=== PATIENT | male | born 1950 | race Caucasian/White ===

== ENCOUNTER 2020-04-21 13:37 | Outpatient (REF) | payer MEDICARE, SELFPAY ==
[2020-04-21 16:43] LABS: MANUAL DIFF FLAG NO
[2020-04-21 16:48] LABS: Basophils Percent Auto 0.4 % (0-2); Eosinophils Absolute Auto 0.1 X10*3/uL (0.0-0.4); Eosinophils Percent Auto 1.4 % (0-4); Hematocrit 47.7 % (42-52); Hemoglobin 15.3 g/dl (14.0-18.0); Imm Gran Abs Auto 0.02 X10*3/uL (0.00-0.03); Imm Gran Pct Auto 0.3 % (0.0-0.4); Lymphocytes Absolute Auto 1.6 X10*3/uL (1.2-4.9); Lymphocytes Percent Auto 19.8 % (20-40); Mean Corpuscular HGB Conc 32.1 g/dl (31.0-36.0); Mean Corpuscular Hemoglobin 30.6 pg (27.0-33.0); Mean Corpuscular Volume 95.4 fL (80-98); Mean Platelet Volume 10.5 fL (9.4-12.4); Monocytes Absolute Auto 0.5 X10*3/uL (0.1-1.2); Monocytes Percent Auto 6.8 % (2-11); Neutrophils Absolute Auto 5.6 X10*3/uL (2.0-8.3); Neutrophils Percent Auto 71.3 % (45-73); Platelet Count 181 X10*3/uL (160-400); White Blood Count 7.8 X10*3/uL (4.8-10.8)
[2020-04-21 17:04] LABS: Alanine Aminotransferase 26 U/L (0-40); Albumin Level 4.5 g/dL (3.5-5.0); Alkaline Phosphatase 85 U/L (39-117); Anion Gap 16 (12-20); Aspartate Amino Transferase 23 U/L (5-37); Bilirubin Total 0.6 mg/dL (0.0-1.0); Blood Urea Nitrogen 24 mg/dL (9-16); Calcium 9.4 mg/dL (8.4-10.2); Carbon Dioxide 31 mmol/L (22-29); Chloride 98 mmol/L (96-108); Estimated Glomerular Filt Rate > 60; Glucose Random 107 mg/dL (60-115); Potassium 4.8 mmol/l (3.3-5.1); Sodium 140 mmol/L (135-145); Total Protein 8.1 g/dL (6.5-8.0)
[2020-04-21 17:07] LABS: Troponin-I High Sensitivity 10.2 ng/L (<3.5-35.0)
== END 2020-04-21 13:38 | disposition home or self-care (01) ==
LOC: HO.LAB 13:37
PROVIDERS: PCP Nurse Practitioner Family; Visit Provider Nurse Practitioner Family
DX: R42 Dizziness and giddiness (principal); I10 Essential (primary) hypertension
CPT/HCPCS: 36415; 80053; 84484; 85025; U0003

== ENCOUNTER → 2020-07-06 08:18 | Outpatient (REF) | payer MEDICARE, SELFPAY ==
--- NOTE | 2020-07-06 08:20 | CA_ITS ---
Transthoracic Echocardiogram Patient (Last, First, Middle): Thomas Griffith E Gender: Male Date of : 1950 Age: 70 Procedure Date: 07/06/2020 Procedure Type: Transthoracic Echocardiogram Location: OP Height: 187.96 cm Weight: 149.23 kg BSA: 2.69 m2 Heart Rate: bpm BP: 140 / 76 mmHg Loom Blower: KIRIT Referring MD: Jaquan Tristan [facility] Stubber: Dudley Jamison MD Symptoms: R01.1 - Cardiac murmur, unspecified Study Quality: Fair ECG Rhythm: Sinus Conclusions: - 1. Normal LV systolic function with mild LVH with pseudonormal filling pattern 2. Mildly dilated left atrium 3. Mild aortic stenosis 4. Mildly dilated ascending aorta 5. Normal RV systolic pressure 6. No pericardial effusion Findings Left Ventricle Normal left ventricular size and systolic function. There is mildly increased left ventricular wall thickness. The visually estimated ejection fraction is between 55-60%. Spectral Doppler is indicative of a pseudonormal filling pattern. E/E prime ratio is >15, consistent with elevated filling pressures. Evidence suggests grade II (moderate) diastolic dysfunction. Right Ventricle Normal right ventricular cavity size and systolic function. Atria The left atrium is mildly dilated. There is lipomatous hypertrophy of the interatrial septum. There is no evidence of interatrial shunt. The right atrium is normal in size. Aortic Valve There is mild calcification of the aortic valve. There is mild aortic valve stenosis. The peak aortic gradient is 14 mmHg.The mean gradient is 8 mmHg. The aortic valve area is 1.75 cm2. There is no aortic valve regurgitation. Mitral Valve Normal mitral valve structure and function. There is trace mitral valve regurgitation. There is no mitral valve stenosis. Pulmonic Valve The pulmonic valve was not well visualized. Tricuspid Valve Likely normal tricuspid valve structure and function. There is trace tricuspid valve regurgitation. The right ventricular systolic pressure is normal. The right ventricular systolic pressure is 20 mmHg. There is no evidence of pulmonary hypertension. Great Vessels The pulmonary artery was not well visualized. There is mild dilatation of the ascending aorta measuring 4.10 cm. Venous The inferior vena cava is normal in size and collapses greater than 50% with inspiration. Pericardium/Pleural There is no evidence of pericardial effusion. Prior Study Comparison No prior study available for comparison. Measurements M-Mode Liner Measurements Normals - Women/Men AOV Cusps: 1.90 1.5-2.6 cm/m2 2D Linear Measurements IVSd: 1.30 0.6-0.9/0.6-1.0 cm LVIDd: 4.95 3.9-5.3/4.2-5.9 cm LVIDd Index: 1.84 2.4-3.2/2.2-3.1 cm/m2 LVIDs: 3.51 2.0-3.6 cm LVPWd: 1.30 0.7-1.1 cm Ao Root: 3.80 2.1-3.5 cm LA Diam: 3.80 2.7-3.8/3.0-4.0 cm LAIDs Index: 1.41 1.5-2.3 cm/m2 LV Mass: 321.44 67-162/88-224 g LV Mass Index: 119.50 43-95/49-115 g/m2 LVOT Diam: 2.00 3.0+(-)1.3 cm 2D Systolic Function EF 4C: 67.80 >55% EF 2C: 49.40 >55% EF BiP: 58.30 >55% Mitral Valve MV Pk E: 1.19 MV PK A: 0.77 MV Decel Time: 232.00 E/A: 1.60 E'Lateral: 6.96 E'Medial: 5.00 E/E' Med: 23.80 E/E' Lat: 17.10 PHT: 68.00 MVA PHT: 3.24 Decel Mccone: 5.13 Aortic Valve AoV Pk Edinson: 1.85 AoV Mn Edinson: 1.36 AoV VTI: 0.46 AoV Pk Grad: 14.00 Aov Mn Grad: 8.00 ROSE Cont.VTI: 1.75 AI Pk Edinson: 4.52 AI Mccone: 2.50 LVOT LVOT Pk Edinson: 0.92 LVOT Mn Edinson: 0.72 LVOT VTI: 0.26 LVOT Pk Grad: 3.00 LVOT Mn Grad: 2.00 LVOT Diam: 2.00 LVOT Area: 3.14 Diastolic Function MV Pk E: 1.19 MV Pk A: 0.77 E/A: 1.60 E'Medial: 5.00 E/E' Med: 23.80 E' Laterial: 6.96 E/E' Lat: 17.10 Tricuspid Valve TR Pk Edinson: 2.07 TR Pk Grad: 17.00 RA Press: 3.00 RVSP: 20.00 Great Vessels Aorta Ao Root-2D: 3.80 2.0-3.7 cm Ao Asc: 4.10 2.1-3.4 cm Ao Arch: 2.80 Pulmonary Valve PV Pk Edinson: 1.05 Peak PV Grad: 4.00 Updated in Other Vendor System with Status of Final Dudley Jamison MD electronically signed on 07/06/2020 12:30:54 PM with status of Final
== END ==
LOC: HO.CARD 08:18
PROVIDERS: PCP Nurse Practitioner Family; Visit Provider Nurse Practitioner Family
DX: R01.1 Cardiac murmur, unspecified (principal)
CPT/HCPCS: 93306

== ENCOUNTER 2020-07-08 07:49 | Outpatient (REF) | payer MEDICARE, SELFPAY ==
[2020-07-08 12:02] LABS: Alanine Aminotransferase 24 U/L (0-40); Albumin Level 4.4 g/dL (3.5-5.0); Alkaline Phosphatase 80 U/L (39-117); Anion Gap 14 (12-20); Aspartate Amino Transferase 23 U/L (5-37); Bilirubin Total 0.7 mg/dL (0.0-1.0); Blood Urea Nitrogen 19 mg/dL (9-16); Calcium 9.1 mg/dL (8.4-10.2); Carbon Dioxide 33 mmol/L (22-29); Chloride 101 mmol/L (96-108); Cholesterol 175 mg/dL; Estimated Glomerular Filt Rate > 60; Glucose Fasting 107 mg/dL (60-99); HDL Cholesterol 45 mg/dL; LDL Cholesterol Calculated 109 mg/dl; Potassium 4.6 mmol/L (3.3-5.1); Sodium 143 mmol/L (135-145); Total Protein 7.9 g/dL (6.5-8.0); Triglycerides 109 mg/dL
[2020-07-08 12:22] LABS: Prostate Specific Antigen Scr 0.78 ng/mL (<0.05-4.0); TSH reflex Free T4 2.45 uIU/mL (0.32-4.0)
== END 2020-07-08 07:50 | disposition home or self-care (01) ==
LOC: HO.HMGCLDS 07:49
PROVIDERS: PCP Nurse Practitioner Family; Visit Provider Nurse Practitioner Family
DX: Z12.5 Encounter for screening for malignant neoplasm of prostate (principal); I10 Essential (primary) hypertension
CPT/HCPCS: 36415; 80053; 80061; 84153; 84443

== ENCOUNTER 2020-07-20 08:42 | Outpatient (REF) | payer MEDICARE, SELFPAY ==
--- NOTE | ~2020-07-20 | CT_ITS ---
EXAMINATION: CT CHEST AND ABDOMEN WITH CONTRAST CLINICAL INFORMATION: Aneurysm. COMPARISON: None. TECHNIQUE: Contiguous axial thin section helical images of the chest and abdomen were performed following the administration of oral contrast and 85 mL of intravenous Omnipaque 350. The data set was reformatted in the coronal and sagittal planes and reviewed on an independent workstation. This CT examination was performed using dose optimization techniques as appropriate, variously including the following: *Automated exposure control *Adjustment of mA and/or kV according to patient size (this includes techniques or standardized protocols for targeted exams where dose is matched to indication/reason for exam; i.e. extremities or head) *Use of iterative reconstruction technique DLP: 840 mGy-cm. FINDINGS: LUNGS: There are multiple scattered bilateral calcified granulomas. No noncalcified pulmonary nodule or mass. Focal somewhat ground-glass airspace opacity adjacent to the right hilum measuring up to 2.1 cm in AP dimension. Findings may represent atelectasis versus early infiltrates. Linear atelectasis versus scarring in the lingula and left lower lobe. The central airways are patent. PLEURA: No pleural effusion or pneumothorax. No pleural mass or thickening. MEDIASTINUM: No cardiomegaly. No significant pericardial effusion. No thoracic aortic dilatation or dissection. No significant superior mediastinal lymphadenopathy. Mildly prominent right hilar lymph node measuring up to 1.1 x 1.1 cm, adjacent to the right perihilar ground-glass opacity. No additional hilar lymphadenopathy. CHEST WALL/AXILLA: No lymphadenopathy. THYROID: Unremarkable LIVER, GALLBLADDER, AND BILIARY TREE: Normal size, shape, and attenuation. No focal hepatic lesion. No intra or extrahepatic biliary ductal dilatation. The gallbladder is unremarkable with no evidence of radiopaque gallstones, gallbladder wall thickening, or obvious pericholecystic inflammatory changes. PANCREAS: Unremarkable. SPLEEN: Mild splenomegaly measuring up to 15.8 cm. ADRENAL GLANDS: Unremarkable. KIDNEYS AND URETERS: Normal size, shape, and attenuation. No hydronephrosis, proximal hydroureter, or calculi. No perinephric stranding. GASTROINTESTINAL TRACT: No upper abdominal bowel wall thickening or associated inflammatory change. No upper abdominal bowel obstruction. The appendix is unremarkable. PERITONEAL CAVITY: No upper abdominal free air or free fluid. No upper abdominal mass or organized fluid collection/abscess formation. ABDOMINAL WALL: Anterior abdominal wall postsurgical change including a surgical mesh consistent with prior hernia repair. No significant abdominal wall hernia. LYMPH NODES: No significant abdominal lymphadenopathy. VASCULAR: Contrast opacifies the abdominal aorta and its branch vessels. No abdominal aortic dilatation or dissection. Scattered atherosclerotic calcifications. The IVC is unremarkable. OSSEOUS STRUCTURES: No concerning lytic or blastic osseous lesion. Diffuse bridging osteophytes throughout the thoracic spine with prominent endplate osteophytes throughout the lumbar spine. Findings can be seen in the setting of diffuse idiopathic skeletal hyperostosis. CT/CT abdomen w con IMPRESSION: 1. No thoracic or abdominal aortic dilatation or dissection. Atherosclerotic calcifications throughout the aorta and its branch vessels. 2. Multiple tiny calcific granulomas, which could represent prior granulomatous disease. Focal ground-glass airspace opacity adjacent to the right hilum measuring up to 2.1 cm in AP dimension. There is an adjacent, mildly prominent right hilar lymph node. Findings may represent an early infectious or inflammatory process. An underlying neoplastic process cannot be entirely excluded and short-term interval follow-up in 1-3 months is recommended to help further evaluate. No additional airspace opacity. No concerning noncalcified pulmonary nodule or mass. 3. No additional lymphadenopathy. 4. Mild splenomegaly. 5. No intra-abdominal mass, lymphadenopathy, or ascites.
[2020-07-20] MEDS: iohexoL 350 MG/ML 100 ML INFUS..BTL IV (09:40)
== END 2020-07-20 08:43 | disposition home or self-care (01) ==
LOC: HO.CT 08:42
PROVIDERS: PCP Nurse Practitioner Family; Visit Provider Nurse Practitioner Family
DX: I72.9 Aneurysm of unspecified site (principal)
CPT/HCPCS: 71260; 74160; Q9967

== ENCOUNTER 2020-10-08 07:31 | Outpatient (REF) | payer MEDICARE, SELFPAY ==
--- NOTE | ~2020-10-08 | CT_ITS ---
EXAMINATION: CT CHEST WITH CONTRAST CLINICAL INFORMATION: Enlarged lymph nodes COMPARISON: Previous chest CT July 2020 TECHNIQUE: Multidetector volumetric CT imaging of the chest was obtained after the administration of 65 mL of Omnipaque 350 intravenous contrast without immediate adverse reactions. Axial MIP volume rendering provided. Sagittal and coronal reformatted images were obtained. This CT examination was performed using dose optimization techniques as appropriate, variously including the following: *Automated exposure control *Adjustment of mA and/or kV according to patient size (this includes techniques or standardized protocols for targeted exams where dose is matched to indication/reason for exam; i.e. extremities or head) *Use of iterative reconstruction technique DLP: 332 mGy-cm FINDINGS: CUTTER WET MACHINE: LUNGS: The previously identified 2 cm area of airspace disease in the central right upper lobe/superior hilar region on July 2020 exam is no longer seen. The previously identified 8 mm left upper lobe nodule on July 2020 exam is no longer seen. There are small bilateral calcified pulmonary nodules that are stable, largest measuring 2 to 3 mm. There is scarring or subsegmental atelectasis in the left upper and left lower lobes. MEDIASTINUM: There are no enlarged hilar or mediastinal lymph nodes. The heart does not appear enlarged. There is coronary artery calcification. There is no pericardial effusion. The thoracic aorta is normal in caliber. PLEURA: There is no pleural effusion. No pleural mass or thickening. AXILLA: No lymphadenopathy. UPPER ABDOMEN: The liver is low in attenuation suggestive of fatty infiltration. OSSEOUS STRUCTURES: There are degenerative changes of the spine and shoulder joints. There is an old right posterior sixth rib fracture. CT/CT chest w con IMPRESSION: 2 cm area of airspace disease in the central/suprahilar right upper lobe is no longer seen. 8 mm central left upper lobe nodule is no longer seen. Stable small calcified pulmonary nodules probably representing calcified granulomas. Minimal scarring or subsegmental atelectasis in the left upper lobe and lingula. No adenopathy. Coronary artery calcification.
[2020-10-08 08:47] LABS: Blood Urea Nitrogen 19 mg/dL (9-16); Estimated Glomerular Filt Rate > 60
[2020-10-08] MEDS: iohexoL 350 MG/ML 100 ML INFUS..BTL 65 ML IV (09:45)
== END 2020-10-08 07:32 | disposition home or self-care (01) ==
LOC: HO.CT 07:31
PROVIDERS: Internal Medicine; Visit Provider Nurse Practitioner Family
DX: R59.0 Localized enlarged lymph nodes (principal)
CPT/HCPCS: 36415; 71260; 82565; 84520; Q9967

== ENCOUNTER 2021-01-31 06:43 | Outpatient (REF) | payer MEDICARE, SELFPAY ==
[2021-01-31 12:10] LABS: Alanine Aminotransferase 21 U/L (0-40); Albumin Level 4.1 g/dL (3.5-5.0); Alkaline Phosphatase 79 U/L (39-117); Anion Gap 11 (12-20); Aspartate Amino Transferase 21 U/L (5-37); Bilirubin Total 0.6 mg/dL (0.0-1.0); Blood Urea Nitrogen 25 mg/dL (9-16); Calcium 9.1 mg/dL (8.4-10.2); Carbon Dioxide 32 mmol/L (22-29); Chloride 102 mmol/L (96-108); Cholesterol 164 mg/dL; Estimated Glomerular Filt Rate > 60; Glucose Fasting 122 mg/dL (60-99); HDL Cholesterol 42 mg/dL; LDL Cholesterol Calculated 103 mg/dl; Potassium 4.9 mmol/L (3.3-5.1); Sodium 140 mmol/L (135-145); Total Protein 7.3 g/dL (6.5-8.0); Triglycerides 98 mg/dL
[2021-01-31 12:16] LABS: Appearance Urine CLEAR; Color Urine YELLOW; Glucose Urine UA NEG (NEG); Leukocyte Esterase Urine NEG (NEG); Nitrite Urine NEG (NEG); Urine Blood NEG (NEG); Urine Ketones NEG (NEG); Urine Protein NEG (NEG-TRACE)
[2021-01-31 12:18] LABS: Prostate Specific Antigen Scr 0.65 ng/mL (<0.05-4.0); TSH reflex Free T4 2.38 uIU/mL (0.32-4.0)
== END 2021-01-31 06:44 | disposition home or self-care (01) ==
LOC: HO.HMGCLDS 06:43
PROVIDERS: PCP Nurse Practitioner Family; Visit Provider Nurse Practitioner Family
DX: Z00.00 Encounter for general adult medical examination without abnormal findings (principal); Z12.5 Encounter for screening for malignant neoplasm of prostate
CPT/HCPCS: 36415; 80053; 80061; 81003; 84153; 84443

== ENCOUNTER → 2021-06-21 08:17 | Outpatient (BNVA) | payer MEDICARE, SELFPAY | PROVIDERS: PCP Nurse Practitioner Family; Referring Provider Nurse Practitioner Family; Visit Provider Internal Medicine | DX: I48.19 Other persistent atrial fibrillation (principal); I10 Essential (primary) hypertension; E66.01 Morbid (severe) obesity due to excess calories; G47.33 Obstructive sleep apnea (adult) (pediatric); Z99.89 Dependence on other enabling machines and devices | CPT/HCPCS: 93005; 99202 ==

== ENCOUNTER → 2021-06-28 06:45 | Outpatient (REF) | payer MEDICARE, SELFPAY ==
--- NOTE | 2021-06-28 06:58 | HM_ITS ---
Conclusion: 1. Patient was monitored for total period of 2 days and 22 hours 2. Baseline rhythm is atrial fibrillation with average heart of 75 beats per minute with adequate rate control 3. No significant pauses noted 4. Total of 1752 PVCs accounting for 0.56% of total burden accounting for occasional PVCs 5. No patient reported events MTDD
== END ==
LOC: HO.CARD 06:45
PROVIDERS: PCP Nurse Practitioner Family; Visit Provider Internal Medicine
DX: I48.19 Other persistent atrial fibrillation (principal)
CPT/HCPCS: 93242

== ENCOUNTER 2021-07-27 22:45 | Emergency (ER) | payer MEDICARE, SELFPAY ==
[2021-07-27 23:02] VITALS: BP 145/75; PULSE 85; RESP 16; TEMP 37.1; O2SAT 95; BMI 41.4
== END 2021-07-28 02:08 | disposition left against medical advice (07) ==
PROVIDERS: Emergency Provider Emergency Medicine; PCP Nurse Practitioner Family
DX: M79.606 Pain in leg, unspecified (principal)
CPT/HCPCS: 99281; 99282

== ENCOUNTER 2021-07-28 08:32 | Outpatient (REF) | payer MEDICARE, SELFPAY ==
--- NOTE | ~2021-07-28 | XR_ITS ---
EXAMINATION: XR HIP, RIGHT CLINICAL INFORMATION: Right hip pain. COMPARISON: None TECHNIQUE: Two views of the right hip. FINDINGS: Total right hip arthroplasty. No hardware fracture. No perihardware lucency to suggest loosening or infection. Mild dystrophic ossification adjacent to the proximal femur. XR/XR hip RT min 2V IMPRESSION: Total right hip arthroplasty without evidence of hardware complication. Mild dystrophic ossification adjacent to the proximal right femur.
== END 2021-07-28 08:33 | disposition home or self-care (01) ==
LOC: HO.HMGCX 08:32
PROVIDERS: PCP Nurse Practitioner Family; Visit Provider Nurse Practitioner Family
DX: M25.551 Pain in right hip (principal)
CPT/HCPCS: 73502

== ENCOUNTER 2021-08-02 11:15 | Outpatient (REF) | payer MEDICARE, SELFPAY ==
[2021-08-02 13:16] LABS: MANUAL DIFF FLAG NO
[2021-08-02 13:25] LABS: Basophils Percent Auto 0.4 % (0-2); Eosinophils Absolute Auto 0.1 X10*3/uL (0.0-0.4); Eosinophils Percent Auto 1.8 % (0-4); Hematocrit 44.1 % (42.0-52.0); Hemoglobin 13.9 g/dl (14.0-18.0); Imm Gran Abs Auto 0.01 X10*3/uL (0.00-0.03); Imm Gran Pct Auto 0.1 % (0.0-0.4); Lymphocytes Absolute Auto 1.9 X10*3/uL (1.2-4.9); Lymphocytes Percent Auto 24.3 % (20-40); Mean Corpuscular HGB Conc 31.5 g/dl (31.0-36.0); Mean Corpuscular Hemoglobin 30.6 pg (27.0-33.0); Mean Corpuscular Volume 97.1 fL (80.0-98.0); Mean Platelet Volume 10.3 fL (9.4-12.4); Monocytes Absolute Auto 0.6 X10*3/uL (0.1-1.2); Monocytes Percent Auto 7.4 % (2-11); Neutrophils Absolute Auto 5.2 x10*3/uL (2.0-8.3); Platelet Count 182 X10*3/uL (160-400); Red Blood Count 4.54 X10*6/uL (4.60-5.80); Red Cell Distribution Width 14.1 % (11.0-16.0); White Blood Count 7.9 X10*3/uL (4.8-10.8)
[2021-08-02 13:32] LABS: Anion Gap 14 (12-20); Blood Urea Nitrogen 20 mg/dL (9-16); Calcium 9.4 mg/dL (8.4-10.2); Carbon Dioxide 29 mmol/L (22-29); Chloride 99 mmol/L (96-108); Estimated Glomerular Filt Rate > 60; Glucose Random 86 mg/dL (60-115); Potassium 3.8 mmol/L (3.3-5.1); Sodium 138 mmol/L (135-145); Uric Acid 6.8 mg/dL (3.4-7.0)
== END 2021-08-02 11:16 | disposition home or self-care (01) ==
LOC: HO.WFDLDS 11:15
PROVIDERS: Visit Provider Family Medicine
DX: Z00.00 Encounter for general adult medical examination without abnormal findings (principal); M25.429 Effusion, unspecified elbow; I48.19 Other persistent atrial fibrillation
CPT/HCPCS: 36415; 80048; 84550; 85025

== ENCOUNTER → 2021-08-02 16:42 | Outpatient (REF) | payer MEDICARE, SELFPAY ==
--- NOTE | 2021-08-02 16:56 | CA_ITS ---
Transthoracic Echocardiogram Patient (Last, First, Middle): Thomas Griffith E Gender: Male Date of : 1950 Age: 71 Procedure Date: 08/02/2021 Procedure Type: Transthoracic Echocardiogram Location: OP Height: 187.96 cm Weight: 146.06 kg BSA: 2.66 m2 Heart Rate: bpm BP: 134 / 80 mmHg Financial Planning Assistant: Referring MD: Darryl Henderson MD Symptoms: I48.19 - Other persistent atrial fibrillation Study Quality: Fair ECG Rhythm: Atrial Fibrillation Conclusions: - The left ventricular systolic function is normal. The calculated ejection fraction is 58% by biplane method. - No obvious valvular pathology seen on this study. Findings Left Ventricle Normal left ventricular cavity size. There is mildly increased left ventricular wall thickness. The left ventricular systolic function is normal. The calculated ejection fraction is 58% by biplane method. There is no evidence of regional wall motion abnormalities. Diastolic function is indeterminate on the basis of available data. Right Ventricle Normal right ventricular cavity size and systolic function. Atria Both atria are normal in size. Aortic Valve The aortic valve was not well visualized. There is mild calcification of the aortic valve. There is no aortic valve stenosis. There is no aortic valve regurgitation. Mitral Valve There is mild mitral annular calcification. There is trace mitral valve regurgitation. There is no mitral valve stenosis. Pulmonic Valve The pulmonic valve is likely normal. Tricuspid Valve Normal tricuspid valve structure. There is no tricuspid valve regurgitation. The pulmonary artery systolic pressure is normal. Great Vessels The asc aorta is normal in size. Venous The inferior vena cava is normal in size and collapses greater than 50% with inspiration. Pericardium/Pleural There is no evidence of pericardial effusion. Prior Study Comparison No significant change compared to prior study dated: 07/06/2020. Aortic stenosis not appreciated. Recommendations, Care & Conclusions No obvious valvular pathology seen on this study. Measurements 2D Linear Measurements IVSd: 1.23 0.6-0.9/0.6-1.0 cm LVIDd: 4.69 3.9-5.3/4.2-5.9 cm LVIDd Index: 1.76 2.4-3.2/2.2-3.1 cm/m2 LVIDs: 3.16 2.0-3.6 cm LVPWd: 1.19 0.7-1.1 cm Ao Root: 3.40 2.1-3.5 cm LA Diam: 3.90 2.7-3.8/3.0-4.0 cm LAIDs Index: 1.47 1.5-2.3 cm/m2 LV Mass: 266.51 67-162/88-224 g LV Mass Index: 100.19 43-95/49-115 g/m2 LVOT Diam: 2.30 3.0+(-)1.3 cm 2D Systolic Function EF 4C: 58.80 >55% EF 2C: 53.30 >55% EF BiP: 58.10 >55% Mitral Valve MV Pk E: 1.26 MV Decel Time: 135.00 E'Lateral: 8.59 E'Medial: 8.05 E/E' Med: 15.70 E/E' Lat: 14.70 PHT: 40.00 MVA PHT: 5.50 Decel Scurry: 9.35 Aortic Valve AoV Pk Edinson: 1.45 AoV Mn Edinson: 1.02 AoV VTI: 0.31 AoV Pk Grad: 8.00 Aov Mn Grad: 5.00 ROSE Cont.VTI: 2.79 LVOT LVOT Pk Edinson: 0.99 LVOT Mn Edinson: 0.74 LVOT VTI: 0.21 LVOT Pk Grad: 4.00 LVOT Mn Grad: 2.00 LVOT Diam: 2.30 LVOT Area: 4.15 Diastolic Function MV Pk E: 1.26 E'Medial: 8.05 E/E' Med: 15.70 E' Laterial: 8.59 E/E' Lat: 14.70 Right Ventricle TAPSE (mm): 25.00 Tricuspid Valve TR Pk Edinson: 2.57 TR Pk Grad: 26.00 RA Press: 3.00 RVSP: 29.00 Great Vessels Aorta Ao Root-2D: 3.40 2.0-3.7 cm Ao Asc: 3.70 2.1-3.4 cm Pulmonary Valve PV Pk Edinson: 0.80 Peak PV Grad: 3.00 Updated in Other Vendor System with Status of Final Darryl Henderson MD electronically signed on 08/03/2021 12:57:57 PM with status of Final
== END ==
LOC: HO.CARD 16:42
PROVIDERS: PCP Nurse Practitioner Family; Visit Provider Internal Medicine
DX: I48.19 Other persistent atrial fibrillation (principal)
CPT/HCPCS: 93306

== ENCOUNTER → 2021-08-15 13:43 | Outpatient (BNVA) | payer MEDICARE, SELFPAY | PROVIDERS: PCP Nurse Practitioner Family; Referring Provider Nurse Practitioner Family; Visit Provider Internal Medicine | DX: I48.19 Other persistent atrial fibrillation (principal); I10 Essential (primary) hypertension; G47.33 Obstructive sleep apnea (adult) (pediatric); E66.01 Morbid (severe) obesity due to excess calories; Z99.89 Dependence on other enabling machines and devices; Z68.41 Body mass index [BMI] 40.0-44.9, adult | CPT/HCPCS: 99212 ==

== ENCOUNTER 2021-09-28 12:21 | Outpatient (REF) | payer MEDICARE, SELFPAY ==
--- NOTE | ~2021-09-28 | XR_ITS ---
EXAMINATION: XR LUMBOSACRAL SPINE CLINICAL INFORMATION: Muscle spasm. COMPARISON: None TECHNIQUE: 3 views of the lumbosacral spine. FINDINGS: There is normal lumbar lordosis. The vertebral heights and alignment are normal. There is loss of disc height with moderate ventral bridging osteophytes virtually at every lumbar disc level. No acute fracture or lytic process seen. There are bilateral total hip prosthesis. SI joints are symmetrical. There is an anterior abdominal wall hernia repair with mesh in place. 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
== END 2021-09-28 12:22 | disposition home or self-care (01) ==
LOC: HO.XRAY 12:21
PROVIDERS: PCP Nurse Practitioner Family; Visit Provider Nurse Practitioner Family
DX: M62.838 Other muscle spasm (principal)
CPT/HCPCS: 72100

== ENCOUNTER → 2022-02-13 13:25 | Outpatient (BNVA) | payer MEDICARE, SELFPAY | PROVIDERS: PCP Nurse Practitioner Family; Referring Provider Nurse Practitioner Family; Visit Provider Internal Medicine | DX: I48.19 Other persistent atrial fibrillation (principal); I10 Essential (primary) hypertension; G47.33 Obstructive sleep apnea (adult) (pediatric); E66.01 Morbid (severe) obesity due to excess calories; Z99.89 Dependence on other enabling machines and devices; Z68.41 Body mass index [BMI] 40.0-44.9, adult | CPT/HCPCS: 99212 ==

== ENCOUNTER 2022-09-19 08:18 | Outpatient (REF) | payer MEDICARE, SELFPAY ==
[2022-09-19 11:23] LABS: MANUAL DIFF FLAG NO
[2022-09-19 11:42] LABS: Basophils Percent Auto 0.4 % (0-2); Eosinophils Absolute Auto 0.1 X10*3/uL (0.0-0.4); Eosinophils Percent Auto 1.8 % (0-4); Hematocrit 41.4 % (42.0-52.0); Hemoglobin 13.2 g/dl (14.0-18.0); Imm Gran Abs Auto 0.01 X10*3/uL (0.00-0.03); Imm Gran Pct Auto 0.2 % (0.0-0.4); Lymphocytes Absolute Auto 1.3 X10*3/uL (1.2-4.9); Mean Corpuscular HGB Conc 31.9 g/dl (31.0-36.0); Mean Corpuscular Hemoglobin 31.3 pg (27.0-33.0); Mean Corpuscular Volume 98.1 fL (80.0-98.0); Mean Platelet Volume 10.7 fL (9.4-12.4); Monocytes Absolute Auto 0.3 X10*3/uL (0.1-1.2); Monocytes Percent Auto 7.4 % (2-11); Neutrophils Absolute Auto 2.8 x10*3/uL (2.0-8.3); Neutrophils Percent Auto 62.2 % (45-73); Platelet Count 146 X10*3/uL (160-400); Red Blood Count 4.22 X10*6/uL (4.60-5.80); Red Cell Distribution Width 14.8 % (11.0-16.0); White Blood Count 4.5 X10*3/uL (4.8-10.8)
[2022-09-19 11:48] LABS: Appearance Urine Clear; Color Urine Yellow; Glucose Urine UA Negative (Negative); Leukocyte Esterase Urine Negative (Negative); Nitrite Urine Negative (Negative); Urine Blood Negative (Negative); Urine Ketones Negative (Negative); Urine Protein Negative (Neg-Trace)
[2022-09-19 12:27] LABS: Prostate Specific Antigen Scr 0.47 ng/mL (<0.05-4.0)
[2022-09-19 12:30] LABS: Alanine Aminotransferase 17 U/L (0-40); Albumin Level 3.9 g/dL (3.5-5.0); Alkaline Phosphatase 87 U/L (39-117); Anion Gap 13 (12-20); Aspartate Amino Transferase 21 U/L (5-37); Bilirubin Total 0.7 mg/dL (0.0-1.0); Blood Urea Nitrogen 20 mg/dL (9-16); Calcium 9.5 mg/dL (8.4-10.2); Carbon Dioxide 31 mmol/L (22-29); Chloride 102 mmol/L (96-108); Cholesterol 150 mg/dL; Estimated Glomerular Filt Rate > 60; Glucose Fasting 109 mg/dL (60-99); HDL Cholesterol 46 mg/dL; LDL Cholesterol Calculated 94 mg/dl; Sodium 141 mmol/L (135-145); TSH reflex Free T4 2.32 uIU/mL (0.32-4.0); Total Protein 7.4 g/dL (6.5-8.0); Triglycerides 51 mg/dL; Vitamin D 25-OH Total 26.3 ng/mL (>30)
== END 2022-09-19 08:19 | disposition home or self-care (01) ==
LOC: HO.HMGCLDS 08:18
PROVIDERS: PCP Nurse Practitioner Family; Visit Provider Nurse Practitioner Family
DX: Z00.00 Encounter for general adult medical examination without abnormal findings (principal); Z12.5 Encounter for screening for malignant neoplasm of prostate; D64.9 Anemia, unspecified; E78.5 Hyperlipidemia, unspecified; E55.9 Vitamin D deficiency, unspecified; R53.83 Other fatigue
CPT/HCPCS: 36415; 80053; 80061; 81003; 82306; 84153; 84443; 85025

== ENCOUNTER 2022-09-21 07:58 | Outpatient (REF) | payer MEDICARE, SELFPAY ==
[2022-09-21 11:14] LABS: MANUAL DIFF FLAG NO
[2022-09-21 11:33] LABS: Basophils Percent Auto 0.4 % (0-2); Eosinophils Absolute Auto 0.1 X10*3/uL (0.0-0.4); Eosinophils Percent Auto 1.6 % (0-4); Hematocrit 41.6 % (42.0-52.0); Hemoglobin 13.1 g/dl (14.0-18.0); Imm Gran Abs Auto 0.02 X10*3/uL (0.00-0.03); Imm Gran Pct Auto 0.4 % (0.0-0.4); Immature Retic Fraction 14.8 % (2.3-13.4); Lymphocytes Absolute Auto 1.2 X10*3/uL (1.2-4.9); Lymphocytes Percent Auto 23.2 % (20-40); Mean Corpuscular HGB Conc 31.5 g/dl (31.0-36.0); Mean Corpuscular Hemoglobin 30.9 pg (27.0-33.0); Mean Corpuscular Volume 98.1 fL (80.0-98.0); Mean Platelet Volume 10.1 fL (9.4-12.4); Monocytes Absolute Auto 0.4 X10*3/uL (0.1-1.2); Neutrophils Absolute Auto 3.4 x10*3/uL (2.0-8.3); Neutrophils Percent Auto 67.4 % (45-73); Platelet Count 152 X10*3/uL (160-400); Red Blood Count 4.24 X10*6/uL (4.60-5.80); Red Cell Distribution Width 14.8 % (11.0-16.0); Retic HGB Equivalent 34.7 pg (30.0-35.0); Reticulocyte Percent 1.5 % (0.5-1.8); Reticulocytes Absolute 0.065 X10*6/uL (0.026-0.095)
[2022-09-21 12:17] LABS: Ferritin 179 ng/mL (20-250); Iron 56 mcg/dL (45-160); Percent Iron Saturation 22 % (15-50); Total Iron Binding Capacity 256 mcg/dL (228-428); Unsaturated Iron Binding 200 ug/dL
[2022-09-21 12:30] LABS: Folate 10.8 ng/mL (> or = 4.0); Vitamin B12 434 pg/mL (200-900)
[2022-09-25 23:18] LABS: Hematocrit 39.6 % (38.5-50.0); Hemoglobin 13.4 g/dL (13.2-17.1); MCH 31.1 pg (27.0-33.0); MCV 91.9 fL (80.0-100.0); RBC 4.31 Million/uL (4.20-5.80); RDW 13.8 % (11.0-15.0)
== END 2022-09-21 07:59 | disposition home or self-care (01) ==
LOC: HO.HMGCLDS 07:58
PROVIDERS: PCP Nurse Practitioner Family; Visit Provider Nurse Practitioner Family
DX: D64.9 Anemia, unspecified (principal)
CPT/HCPCS: 36415; 82607; 82728; 82746; 83020; 83540; 85014; 85018; 85025; 85041; 85045

== ENCOUNTER 2022-09-26 | Outpatient (REF) | payer MEDICARE, SELFPAY ==
[2022-09-29 07:47] LABS: FIT Int Ctl YES; FIT1 NEGATIVE (NEGATIVE); FIT2 POSITIVE (NEGATIVE)
== END 2022-09-26 00:01 | disposition home or self-care (01) ==
LOC: HO.HMGCLNP
PROVIDERS: PCP Nurse Practitioner Family; Visit Provider Nurse Practitioner Family
DX: D64.9 Anemia, unspecified (principal)
CPT/HCPCS: 82274

== ENCOUNTER 2022-10-27 06:52 | Outpatient (REF) | payer MEDICARE, SELFPAY ==
[2022-10-27 11:09] LABS: MANUAL DIFF FLAG NO
[2022-10-27 11:30] LABS: Basophils Percent Auto 0.4 % (0-2); Eosinophils Absolute Auto 0.1 X10*3/uL (0.0-0.4); Eosinophils Percent Auto 1.7 % (0-4); Hemoglobin 13.3 g/dl (14.0-18.0); Imm Gran Abs Auto 0.01 X10*3/uL (0.00-0.03); Imm Gran Pct Auto 0.2 % (0.0-0.4); Lymphocytes Absolute Auto 1.2 X10*3/uL (1.2-4.9); Lymphocytes Percent Auto 25.7 % (20-40); Mean Corpuscular HGB Conc 31.7 g/dl (31.0-36.0); Mean Corpuscular Hemoglobin 30.9 pg (27.0-33.0); Mean Corpuscular Volume 97.7 fL (80.0-98.0); Mean Platelet Volume 10.7 fL (9.4-12.4); Monocytes Absolute Auto 0.4 X10*3/uL (0.1-1.2); Monocytes Percent Auto 7.6 % (2-11); Neutrophils Absolute Auto 3.1 x10*3/uL (2.0-8.3); Neutrophils Percent Auto 64.4 % (45-73); Platelet Count 151 X10*3/uL (160-400); Red Cell Distribution Width 14.8 % (11.0-16.0); White Blood Count 4.7 X10*3/uL (4.8-10.8)
== END 2022-10-27 06:53 | disposition home or self-care (01) ==
LOC: HO.HMGCLDS 06:52
PROVIDERS: PCP Nurse Practitioner Family; Visit Provider Nurse Practitioner Family
DX: D64.9 Anemia, unspecified (principal)
CPT/HCPCS: 36415; 85025

== ENCOUNTER 2022-10-31 08:56 | Outpatient (REF) | payer MEDICARE, SELFPAY ==
[2022-11-02 15:03] LABS: PES - Abn Protein Band 1 0.2 g/dL (NONE DETECTED); PES-Abn Protein Band 2 0.2 g/dL (NONE DETECTED); Prot Elec - Albumin 3.9 g/dL (3.8-4.8); Prot Elec - Alpha1 0.3 g/dL (0.2-0.3); Prot Elec - Alpha2 0.7 g/dL (0.5-0.9); Prot Elec - Beta 1 0.4 g/dL (0.4-0.6); Prot Elec - Beta 2 0.4 g/dL (0.2-0.5); Prot Elec - Gamma 1.5 g/dL (0.8-1.7); Prot Elec - Total Protein 7.3 g/dL (6.1-8.1)
[2022-11-03 09:59] LABS: IgA 433 mg/dL (70-320); IgG 1497 mg/dL (600-1540); IgM 105 mg/dL (50-300)
== END 2022-10-31 08:57 | disposition home or self-care (01) ==
LOC: HO.HMGCLDS 08:56
PROVIDERS: PCP Nurse Practitioner Family; Visit Provider Nurse Practitioner Family
DX: D64.9 Anemia, unspecified (principal)
CPT/HCPCS: 36415; 82784; 84165; 86334

== ENCOUNTER → 2022-12-06 09:49 | Outpatient (BNV) | payer MEDICARE, SELFPAY | PROVIDERS: PCP Nurse Practitioner Family; Referring Provider Nurse Practitioner Family; Visit Provider Internal Medicine Medical Oncology | DX: D64.9 Anemia, unspecified (principal) | CPT/HCPCS: 99204 ==

== ENCOUNTER → 2023-02-05 12:45 | Outpatient (REF) | payer MEDICARE, SELFPAY ==
--- NOTE | 2023-02-05 12:52 | CA_ITS ---
Transthoracic Echocardiogram Patient (Last, First, Middle): Thomas Griffith E Gender: Male Date of : 1950 Age: 72 Procedure Date: 02/05/2023 Procedure Type: Transthoracic Echocardiogram Location: OP Height: 187.96 cm Weight: 144.7 kg BSA: 2.65 m2 Heart Rate: bpm BP: 134 / 80 mmHg Application Systems Administrator: Referring MD: Darryl Henderson MD [employer] Dealer: Dudley Jamison MD Symptoms: I48.19 - Other persistent atrial fibrillation Study Quality: Fair ECG Rhythm: Atrial Fibrillation Conclusions: - 1. Normal LV ejection fraction with mild LVH 2. Trivial aortic regurgitation 3. Mildly elevated right ventricular systolic pressure and right atrial pressures 4. Mildly dilated ascending aorta at 4.2 cm 5. No gross pericardial effusion Findings Left Ventricle Normal left ventricular size and systolic function. There is mildly increased left ventricular wall thickness. The visually estimated ejection fraction is between 60-65%. Diastolic function is indeterminate on the basis of available data. Right Ventricle Normal right ventricular cavity size and systolic function. Atria The left atrium is likely dilated. There is no evidence of interatrial shunt. The right atrium is likely dilated. Aortic Valve There is mild calcification of the aortic valve. There is mild thickening of the aortic valve. The peak aortic gradient is 9 mmHg.The mean gradient is 4 mmHg. The aortic valve area is 1.86 cm2. There is trace (trivial) aortic valve regurgitation. Mitral Valve There is mild anterior and posterior mitral leaflet thickening. There is mild mitral annular calcification. There is trace mitral valve regurgitation. There is no mitral valve stenosis. Pulmonic Valve The pulmonic valve is likely normal. There is trace pulmonic valve regurgitation. Tricuspid Valve Normal tricuspid valve structure. There is mild tricuspid valve regurgitation. Mildly elevated right atrial pressure. Mild pulmonary hypertension is present. Great Vessels The pulmonary artery was not well visualized. There is mild dilatation of the ascending aorta measuring 4.20 cm. Venous The inferior vena cava is normal in size and collapses greater than 50% with inspiration. Pericardium/Pleural There is no evidence of pericardial effusion. Prior Study Comparison Changes noted compared to prior study dated: 08/02/2021. RV systolic pressure is mildly elevated Measurements 2D Linear Measurements IVSd: 1.31 0.6-0.9/0.6-1.0 cm LVIDd: 4.15 3.9-5.3/4.2-5.9 cm LVIDd Index: 1.57 2.4-3.2/2.2-3.1 cm/m2 LVIDs: 2.88 2.0-3.6 cm LVPWd: 1.35 0.7-1.1 cm Ao Root: 3.60 2.1-3.5 cm LA Diam: 3.70 2.7-3.8/3.0-4.0 cm LAIDs Index: 1.40 1.5-2.3 cm/m2 LV Mass: 254.12 67-162/88-224 g LV Mass Index: 95.90 43-95/49-115 g/m2 LVOT Diam: 2.00 3.0+(-)1.3 cm Mitral Valve MV Pk E: 1.24 MV Decel Time: 150.00 E'Lateral: 5.22 E'Medial: 6.64 E/E' Med: 18.70 E/E' Lat: 23.80 PHT: 44.00 MVA PHT: 5.00 Decel Edwards: 8.38 Aortic Valve AoV Pk Edinson: 1.47 AoV Mn Edinson: 0.97 AoV VTI: 0.33 AoV Pk Grad: 9.00 Aov Mn Grad: 4.00 ROSE Cont.VTI: 1.86 LVOT LVOT Pk Edinson: 0.93 LVOT Mn Edinson: 0.64 LVOT VTI: 0.20 LVOT Pk Grad: 3.00 LVOT Mn Grad: 2.00 LVOT Diam: 2.00 LVOT Area: 3.14 Diastolic Function MV Pk E: 1.24 E'Medial: 6.64 E/E' Med: 18.70 E' Laterial: 5.22 E/E' Lat: 23.80 Right Ventricle TAPSE (mm): 20.00 TVS' Edinson: 10.00 Tricuspid Valve TR Pk Edinson: 2.82 TR Pk Grad: 32.00 RA Press: 8.00 RVSP: 40.00 Great Vessels Aorta Ao Root-2D: 3.60 2.0-3.7 cm Ao Asc: 4.20 2.1-3.4 cm Pulmonary Valve PV Pk Edinson: 0.76 Peak PV Grad: 2.00 Updated in Other Vendor System with Status of Final Dudley Jamison MD electronically signed on 02/05/2023 5:01:40 PM with status of Final
--- NOTE | 2023-02-05 12:52 | HM_ITS ---
Conclusion: 1. Patient was monitored for total period of 1 day and 23 hours 2. Baseline was atrial fibrillation with average heart of 70 beats per minute with good rate control 3. No significant pauses noted 4. Occasional PVCs noted 5. No patient reported events MTDD
== END ==
LOC: HO.CARD 12:45
PROVIDERS: PCP Nurse Practitioner Family; Visit Provider Internal Medicine
DX: I48.19 Other persistent atrial fibrillation (principal)
CPT/HCPCS: 93242; 93306

== ENCOUNTER → 2023-02-05 12:52 | Outpatient (BNV) | payer MEDICARE, SELFPAY | PROVIDERS: PCP Nurse Practitioner Family; Visit Provider Internal Medicine Cardiovascular Disease | DX: I48.19 Other persistent atrial fibrillation (principal) | CPT/HCPCS: 93244; 93306 ==

== ENCOUNTER 2023-02-19 12:04 | Outpatient (AMB) | payer MEDICARE, SELFPAY ==
--- NOTE | 2023-02-19 12:29 | MHC.OFFVIS ---
Intake Vital Signs 02/19/23 12:33 Height 6 ft 2 in Weight 321 lb 13.998 oz BMI 41.3 BP 126/70 Blood Pressure Location Lt brachial Position Sitting Pulse 80 Intake Visit Reasons: 1 year fu after echo/holter Medicaid Specialist Required: No Accompanied by: Self / Same As Patient Allergies hydrocodone [From Vicodin] Allergy (Unknown, Verified 02/19/23 12:33) rash morphine Allergy (Unknown, Verified 02/19/23 12:33) rash Medication List - Last Reconciled 02/19/23 by Darryl Henderson MD apixaban (Eliquis) 5 mg PO BID atorvastatin 10 mg PO BEDTIME carisoprodol (Soma) 350 mg PO BEDTIME PRN 10 days carvedilol (Coreg) 3.125 mg PO BID 90 days cholecalciferol (vitamin D3) 50 mcg PO DAILY dexlansoprazole 60 mg PO QAM hydrochlorothiazide 50 mg PO DAILY irbesartan 150 mg PO DAILY linaclotide (Linzess) 145 mcg PO DAILY magnesium sulfate 100 mg PO DAILY penicillin V potassium 500 mg PO BID prednisone 50 mg PO DAILY 6 days rifaximin (Xifaxan) 550 mg PO TID tramadol 50 mg PO TID PRN HPI HPI Comments History of Present Illness Details Thomas returns for follow-up regarding atrial fibrillation. Incidentally noted during visit to chiropractor. He is managed on rate control regimen with beta-blockers. Also anticoagulation. He does not have any angina type symptoms. No palpitations. He states that he has had COVID twice after that, has been feeling short of breath off and on. He is also morbidly obese. Has MARIE on CPAP. [facility] Medical History (Reviewed 09/11/22 @ 17:10 by Jaquan Tristan, [facility]) Aneurysm Cellulitis of multiple sites of buttock Disc degeneration Dislocation of right shoulder joint Essential hypertension GERD (gastroesophageal reflux disease) IFG (impaired fasting glucose) MARIE on CPAP Persistent atrial fibrillation PVD (peripheral vascular disease) Sacroiliac inflammation Sacroiliitis Shoulder pain with history of repair of rotator cuff Vertigo Surgical History History of rotator cuff tear History of vitrectomy History of bilateral carpal tunnel release H/O umbilical hernia repair History of bilateral knee replacement History of bilateral hip replacements Family History Father Leukemia Mother No problems noted. Social History Housing: House Alcohol intake: never Patient Tobacco Use Status: Former Tobacco user Years Smoked: 40 years ago e-Cigarette/Vaping Use: Never Used Second Hand Smoke Exposure: No Substance Use Type: Marijuana service: No Current occupational status: retired Review of Systems Const Denies weakness ENT Denies dizziness Card Denies chest pain, Denies chest pain with activity, Denies syncope, Denies rapid heart rate, Denies pedal edema, Denies edema, Denies leg edema, Denies lightheadedness, Denies palpitations, Denies dyspnea, Denies dyspnea on exertion and Denies orthopnea Resp Denies cough, Denies dyspnea and Denies dyspnea on exertion GI Denies hematochezia and Denies change in stool character Musc Denies abnormal gait, Denies muscle cramps, Denies muscle weakness, Denies numbness, Denies radiating pain into limb and Denies tingling Neuro Denies abnormal gait, Denies dizziness, Denies syncope, Denies numbness, Denies tingling and Denies weakness Endo Denies palpitations Physical Exam Vital Signs: Last Vital Signs Pulse 80 02/19/23 12:33 BP 126/70 02/19/23 12:33 BMI result Body Mass Index 41.3 Const General: comfortable and no acute distress Orientation/consciousness: patient oriented x3 HEENT Other: Unremarkable Head: Yes normal to inspection Neck Neck: Yes normal visual inspection Chest Chest palpation & inspection: normal inspection of the chest Resp Auscultation: clear to auscultation bilaterally Cardio Palpation: normal PMI Heart sounds: S1 normal heart sound present, S2 normal heart sound present, no gallops, no murmurs and no rubs GI Palpation (GI): Soft to palpation Back/Spine/Pelvis Other: unremarkable Skin General skin exam: no rashes or lesions noted Neuro General: patient oriented x3 Extrem General: Yes normal to inspection Psych Mental Status: mental status grossly normal Office Procedures EKG Details: EKG with atrial fibrillation at a rate of 80/Min; nonspecific ST-T changes. [id number], Complete Assessment & Plan Assessment & Plan (1) Persistent atrial fibrillation: Code(s): I48.19 - Other persistent atrial fibrillation Plan: Cardiac studies reviewed. Echocardiogram with LVEF of 60-60%. No significant valvular issues. Mild pulmonary hypertension. Holter shows atrial fibrillation with well-controlled ventricular rate. Due to morbid obesity and obstructive sleep apnea, highly unlikely to remain in sinus even if cardioverted. As he is otherwise alert control, may continue the current strategy. (2) Essential hypertension: Code(s): I10 - Essential (primary) hypertension Plan: He is on combination of Coreg, hydrochlorothiazide, irbesartan. Stable. (3) MARIE on CPAP: Code(s): G47.33 - Obstructive sleep apnea (adult) (pediatric); Z99.89 - Dependence on other enabling machines and devices Plan: Continue CPAP. (4) Morbid obesity: Code(s): E66.01 - Morbid (severe) obesity due to excess calories Plan: Discussed about implications from obesity. Especially cardiac including atrial fibrillation. He is well aware of the consequences. Strongly advised to lose weight. Also discussed about bariatric but he would like to just do it himself. Coding Level of Care Code Est Pt Level 4 (99658) Diagnoses Persistent atrial fibrillation I48.19 Essential hypertension I10 MARIE on CPAP G47.33; Z99.89 Morbid obesity E66.01 CPT Codes EKG - CPT: 64890-[id number], Complete ([id number])
[2023-02-19 12:33] VITALS: BP 126/70; PULSE 80; BMI 41.3
== END 2023-02-19 12:52 | disposition home or self-care (01) ==
PROVIDERS: Visit Provider Internal Medicine
DX: I48.19 Other persistent atrial fibrillation (principal); I10 Essential (primary) hypertension; G47.33 Obstructive sleep apnea (adult) (pediatric); Z99.89 Dependence on other enabling machines and devices; E66.01 Morbid (severe) obesity due to excess calories
CPT/HCPCS: 93010; 99214

== ENCOUNTER → 2023-02-19 12:04 | Outpatient (BNVA) | payer OTHER, SELFPAY | PROVIDERS: Visit Provider Internal Medicine | DX: I48.19 Other persistent atrial fibrillation (principal); I10 Essential (primary) hypertension; E66.01 Morbid (severe) obesity due to excess calories; Z99.89 Dependence on other enabling machines and devices | CPT/HCPCS: 93005; 99212 ==

== ENCOUNTER 2023-03-14 09:27 | Outpatient (AMB) | payer MEDICARE, SELFPAY ==
--- NOTE | 2023-03-14 09:33 | MHC.PC.OV ---
Vital Signs 03/14/23 09:35 Height 6 ft 2 in Weight 321 lb BMI 41.2 BP 124/66 Blood Pressure Location Lt brachial Position Sitting Pulse 78 Pulse Source Pulse Oximeter Pulse Oximetry (%) 97 Oxygen Delivery Method Room Air Intake Visit Reasons: 6 Month follow up on labs Allergies hydrocodone [From Vicodin] Allergy (Unknown, Verified 03/14/23 10:11) rash morphine Allergy (Unknown, Verified 03/14/23 10:11) rash Medication List - Last Reconciled 03/14/23 by DAVIDA Romano-JIM apixaban (Eliquis) 5 mg PO BID atorvastatin 10 mg PO BEDTIME carisoprodol (Soma) 350 mg PO BEDTIME PRN 10 days carvedilol (Coreg) 3.125 mg PO BID 90 days cholecalciferol (vitamin D3) 50 mcg PO DAILY dexlansoprazole 60 mg PO QAM hydrochlorothiazide 50 mg PO DAILY irbesartan 150 mg PO DAILY penicillin V potassium 500 mg PO BID polyethylene glycol 3350 (Miralax) 17 grams PO DAILY tramadol 50 mg PO TID PRN Tobacco use date assessed: 09/11/22 HPI 6 Month follow up on labs HPI Details HTN: Blood pressure is stable, managed with carvedilol 3.125mg bid, hydrochlorothiazide 50mg, and irbesartan 150mg. Denies chest pain, shortness of breath, headache, dizziness, and blurred vision. [facility] Medical History Essential hypertension Persistent atrial fibrillation Sacroiliac inflammation Aneurysm Dislocation of right shoulder joint Shoulder pain with history of repair of rotator cuff IFG (impaired fasting glucose) MARIE on CPAP Vertigo GERD (gastroesophageal reflux disease) PVD (peripheral vascular disease) Disc degeneration Sacroiliitis Cellulitis of multiple sites of buttock Surgical History History of rotator cuff tear History of vitrectomy History of bilateral carpal tunnel release H/O umbilical hernia repair History of bilateral knee replacement History of bilateral hip replacements Family History Father Leukemia Mother No problems noted. Social History Housing: House Alcohol intake: never Patient Tobacco Use Status: Former Tobacco user Years Smoked: 40 years ago e-Cigarette/Vaping Use: Never Used Second Hand Smoke Exposure: No Substance Use Type: Marijuana service: No Current occupational status: retired Questionnaire Thrive Questionnaire Date Thrive assessed: 09/11/22 NAMRATA-7 AMB Questionnaire NAMRATA-7 Date NAMRATA - 7 assessed: 09/11/22 Source: Developed by Drs. Ambrose Matthews, Tonia Doty, Kam Ridley and colleagues, with an educational mateo from [employer]. Review of Systems Const Reports as per HPI Physical exam (Primary Care) Vital Signs: Last Vital Signs Pulse 78 03/14/23 09:35 BP 124/66 03/14/23 09:35 Pulse Ox 97 03/14/23 09:35 Oxygen Delivery Method Room Air 03/14/23 09:35 BMI result Body Mass Index 41.2 Tobacco/Smoking Status: Tobacco use Status Tobacco use date assessed 09/11/22 03/14/23 09:40 Patient Tobacco Use Status Former Tobacco user 03/14/23 09:40 e-Cigarette/Vaping Use Never Used 03/14/23 09:40 Thrive Assessment: Date of Thrive Assessment Date Thrive assessed 09/11/22 03/14/23 09:40 Const General: cooperative Nutritional Appearance: obese morbidly obese Orientation/consciousness: patient oriented x3 Resp Effort & Inspection: normal respiratory effort Auscultation: clear to auscultation bilaterally Cardio Rate: regular rate Rhythm: regular rhythm Heart sounds: S1 normal heart sound present, S2 normal heart sound present and no murmurs Neuro General: patient oriented x3 Extrem Right lower extremity: edema Details: 1+ Left lower extremity: edema Details: 1+ Psych Appearance: grossly normal Mental Status: mental status grossly normal Speech and movement: Normal speech and movement present Affect: normal affect Attitude: cooperative Thought process: Normal thought process present Thought content: Normal thought content present Insight: Good insight present (Psych) Judgement: Good judgement present (Psych) Assessment and Plan Assessment & Plan (1) Essential hypertension: Code(s): I10 - Essential (primary) hypertension Plan: Continue current meds Plan The patient agreed to the use of a medical apparatus model maker for this encounter. Scribed for SAMMY GardinerBC by Damaris Guevara, medical apparatus model maker, on 03/14/2023 at 10:00 EST. Orders: Orders Comprehensive [place]. Panel Fast Today I10 - Essential (primary) hypertension TSH reflex Free T4 Today I10 - Essential (primary) hypertension UA CC w/rflx Micro + Cult Today I10 - Essential (primary) hypertension Complete Blood Count Auto Diff Today I10 - Essential (primary) hypertension Lipid Panel Today I10 - Essential (primary) hypertension Coding Level of Care Code Est Pt Level 3 (12977) Diagnoses Essential hypertension I10
[2023-03-14 09:35] VITALS: BP 124/66; PULSE 78; O2SAT 97; BMI 41.2
== END 2023-03-14 10:21 | disposition home or self-care (01) ==
LOC: HO.HMGC 09:27
PROVIDERS: PCP Nurse Practitioner Family; Visit Provider Nurse Practitioner Family
DX: I10 Essential (primary) hypertension (principal)
CPT/HCPCS: 99213

== ENCOUNTER 2023-03-23 10:04 | Outpatient (REF) | payer MEDICARE, SELFPAY | END 2023-03-23 10:05 | disposition home or self-care (01) | LOC: HO.HMGCX 10:04 | PROVIDERS: PCP Nurse Practitioner Family; Visit Provider Nurse Practitioner Family | DX: M25.511 Pain in right shoulder (principal) | CPT/HCPCS: 73030 ==

== ENCOUNTER 2023-11-27 12:52 | Outpatient (AMB) | payer MEDICARE, SELFPAY ==
[2023-11-27 12:54] VITALS: BP 130/76; PULSE 80; O2SAT 97; BMI 40.8
--- NOTE | 2023-11-27 12:54 | A.OFFPC_ITS ---
Vital Signs 11/27/23 12:54 Height 6 ft 2 in Weight 318 lb BMI 40.8 BP 130/76 Blood Pressure Location Rt brachial Position Sitting Pulse 80 Pulse Source Pulse Oximeter Pulse Oximetry (%) 97 Oxygen Delivery Method Room Air Intake Visit Reasons: Annual PE Intake Note: pt is here for annual exam, EGD done 10/2023 at [facility] with bx Microbiology Lab Analyst Required: No Accompanied by: Self / Same As Patient Allergies hydrocodone [From Vicodin] Allergy (Unknown, Verified 11/27/23 12:54) rash morphine Allergy (Unknown, Verified 11/27/23 12:54) rash Medication List - Last Reconciled 11/27/23 by SANDHYA Romano apixaban (Eliquis) 5 mg PO BID atorvastatin 10 mg PO BEDTIME carisoprodol (Soma) 350 mg PO BEDTIME PRN 10 days carvedilol (Coreg) 3.125 mg PO BID 90 days cholecalciferol (vitamin D3) 50 mcg PO DAILY dexlansoprazole 60 mg PO QAM hydrochlorothiazide 50 mg PO DAILY irbesartan 150 mg PO DAILY polyethylene glycol 3350 (Miralax) 17 grams PO DAILY tramadol 50 mg PO TID PRN Tobacco use date assessed: 11/27/23 Fall risk assessment: No Falls in past year Last assessed Fall Risk: 11/27/23 Dental Screening Dental Screen Date: 11/27/23 Did you have a dental visit in the last 12 months?: Yes Did you have a dental problem in the last 6 months where you did not have access to dental care?: No Was dental information given to patient?: Patient has dentist HPI Annual PE HPI Details Pt is here for a PE. Will order labs. Colon screen is up to date. Due for PSA, will order. Denies dribbling with urination, weak stream, and frequent nocturia. Pt is following up with GI and cardiology. Pt has a hx of afib. He is asymptomatic. REPLACED BY [facility] Medical History Essential hypertension Persistent atrial fibrillation Sacroiliac inflammation Aneurysm Dislocation of right shoulder joint Shoulder pain with history of repair of rotator cuff IFG (impaired fasting glucose) MARIE on CPAP Vertigo GERD (gastroesophageal reflux disease) PVD (peripheral vascular disease) Disc degeneration Sacroiliitis Cellulitis of multiple sites of buttock Surgical History (Reviewed 11/27/23 @ 13:14 by DAV[facility]) History of rotator cuff tear History of vitrectomy History of bilateral carpal tunnel release H/O umbilical hernia repair History of bilateral knee replacement History of bilateral hip replacements Family History Father Leukemia Mother No problems noted. Social History Housing: House Alcohol intake: never Patient Tobacco Use Status: Former Tobacco user Years Smoked: 40 years ago e-Cigarette/Vaping Use: Never Used Second Hand Smoke Exposure: No Substance Use Type: Marijuana service: No Current occupational status: retired Cognitive needs: No Hearing needs: No Vision needs: No Questionnaire PHQ-9 Over the last 2 weeks, how often have you been bothered by any of the following problems? 1. Little interest or pleasure in doing things: not at all 2. Feeling down, depressed, or hopeless: not at all 3. Trouble falling or staying asleep, or sleeping too much: not at all 4. Feeling tired or having little energy: not at all 5. Poor appetite or overeating: not at all 6. Feeling bad about yourself - or that you are a failure or have let yourself or your family down: not at all 7. Trouble concentrating on things, such as reading the newspaper or watching television: not at all 8. Moving or speaking so slowly that other people could have noticed. Or the opposite - being so fidgety or restless that you have been moving around a lot more than usual: not at all 9. Thoughts that you would be better off or of hurting yourself in some way: not at all Total score: 0 Depression Screening Interpretation: Negative Depression Screening Done: Yes 92526 - PHQ-9 Billing: Yes Source: Developed by Drs. Ambrose Matthews, Tonia Doty, Kam Ridley and colleagues, with an educational mateo from [employer]. Thrive Questionnaire Date Thrive assessed: 11/27/23 I am a: Patient What is your living situation today?: I have a steady place to live Within the past 12 months, did the food you bought not last and you didn't have the money to get more?: Never true Within the past 12 months, did you worry whether your food would run out before you got money to buy more?: Never true Do you have trouble paying for medicines?: No Do you have trouble getting transportation to medical appointments?: No Do you have trouble paying your heating and electricity bill?: No Do you have trouble taking care of your child, family member or friend?: No Do you have trouble with day-to-day activities such as bathing, preparing meals, shopping, managing finances, etc.?: No Are you currently unemployed and looking for a job?: No Are you interested in more education?: No Please select the resources that you would like help with: None Currently or been in a relationship where the following occur: I choose not to a nswer THRIVE Score: 0 AUDIT C Alcohol Use Questionnaire (AUDIT-C) 1. How often do you have a drink containing alcohol?: Never 3. How often do you have six or more drinks on one occasion?: Never Total Score: 0 Score Reviewed/Action Taken: Yes NAMRATA-7 AMB Questionnaire NAMRATA-7 Date NAMRATA - 7 assessed: 11/27/23 Feeling nervous, anxious, or on edge: 0 = Not at all Not being able to stop or control worryin = Not at all Worrying too much about different things: 0 = Not at all Trouble relaxin = Not at all Being so restless that it is hard to sit still: 0 = Not at all Becoming easily annoyed or irritable: 0 = Not at all Feeling afraid as if something awful might happen: 0 = Not at all Total NAMRATA-7 score (0-4 normal; 5-9 mild; 10-14 moderate; 15-21 severe): 0 Source: Developed by Drs. Ambrose Matthews, Tonia Doty, Kam Ridley and colleagues, with an educational mateo from [employer]. NAMRATA-7 Assessment Billing NAMRATA-7 Assessment Tool: NAMRATA-7 Assessment 04437 Review of Systems Const Denies chills and Denies fever(s) Eyes Denies blurry vision ENT Denies vertigo, Denies dizziness and Denies sore throat Card Denies chest pain at rest, Denies chest pain with activity, Denies diaphoresis, Denies dyspnea and Denies dyspnea on exertion Resp Denies cough, Denies dyspnea, Denies dyspnea on exertion and Denies wheezing GI Denies abdominal pain, Denies melena, Denies hematochezia, Denies constipation, Denies diarrhea and Denies loose stools Denies hematuria Musc Denies numbness and Denies tingling Skin/Breast Denies lesions Neuro Denies vertigo, Denies dizziness, Denies numbness and Denies tingling Psych Denies anxiety, Denies depression, Denies homicidal ideation, Denies suicidal ideation and Denies other (substance abuse) Aller/Immun Denies wheezing Physical exam (Primary Care) Vital Signs: Last Vital Signs Pulse 80 11/27/23 12:54 BP 130/76 11/27/23 12:54 Pulse Ox 97 11/27/23 12:54 Oxygen Delivery Method Room Air 11/27/23 12:54 BMI result Body Mass Index 40.8 Tobacco/Smoking Status: Tobacco use Status Tobacco use date assessed 11/27/23 11/27/23 12:56 Patient Tobacco Use Status Former Tobacco user 11/27/23 12:56 e-Cigarette/Vaping Use Never Used 11/27/23 12:56 PHQ-9: PHQ-9 Score PHQ-9: Total score 0 11/27/23 13:01 Depression Screening Interpretation: Negative Thrive Assessment: Date of Thrive Assessment Date Thrive assessed 11/27/23 11/27/23 12:56 Currently or been in a relationship where the following occur: I choose not to answer Const General: cooperative Nutritional Appearance: obese morbidly obese Orientation/consciousness: patient oriented x3 HENMT Head: Yes normal to inspection, Yes normocephalic and Yes atraumatic Ears: TM's normal bilaterally Eyes General: appearance normal, both eyes and all related structures Alignment and Position: alignment normal and position normal Neck Neck: Yes normal visual inspection, Yes no lymphadenopathy and Yes supple Resp Effort & Inspection: normal respiratory effort Auscultation: clear to auscultation bilaterally Cardio Rate: regular rate Rhythm: abnormal rhythm irregularly irregular Heart sounds: S1 normal heart sound present, S2 normal heart sound present and no murmurs GI Palpation (GI): Soft to palpation and nontender Auscultation: normal bowel sounds Other: refused DANICA Male General Exam: Yes normal external exam Penis: normal penis Scrotum: scrotum normal, testes descended bilaterally and no inguinal hernias Testes: no testicular mass Skin Rashes: no rashes Neuro General: patient oriented x3, moves all extremities, no focal motor deficits and deep tendon reflexes 2+ bilaterally Romberg Test: Negative Extrem Right lower extremity: edema Details: pitting and 1+ Left lower extremity: edema Details: pitting and 1+ Psych Appearance: grossly normal Mental Status: mental status grossly normal Speech and movement: Normal speech and movement present Affect: normal affect Attitude: cooperative Thought process: Normal thought process present Thought content: Normal thought content present Insight: Good insight present (Psych) Judgement: Good judgement present (Psych) Assessment and Plan Assessment & Plan (1) Physical exam: Code(s): Z00.00 - Encounter for general adult medical examination without abnormal findings Plan: Labs ordered (2) Screening PSA (prostate specific antigen): Code(s): Z12.5 - Encounter for screening for malignant neoplasm of prostate Plan: PSA ordered Plan The patient agreed to the use of a registered medical transcriptionist for this encounter. Scribed for DAVIDA Gardiner-JIM by Damaris Guevara registered medical transcriptionist, on 11/27/2023 at 13:05 EST. Orders: Orders Comprehensive [place]. Panel Fast Today Z00.00 - Encounter for general adult medical examination without abnormal findings TSH reflex Free T4 Today Z00.00 - Encounter for general adult medical examination without abnormal findings Lipid Panel Today Z00.00 - Encounter for general adult medical examination without abnormal findings Complete Blood Count Auto Diff Today Z00.00 - Encounter for general adult medical examination without abnormal findings UA CC w/rflx Micro + Cult Today Z00.00 - Encounter for general adult medical examination without abnormal findings Prostate Specific Antigen Scr Today Z12.5 - Encounter for screening for malignant neoplasm of prostate Coding Level of Care Code Est Pt Prev Care >65y(57919) Diagnoses Physical exam Z00. Screening PSA (prostate specific antigen) Z12. Additional Codes NAMRATA-7 Assessment Billing - NAMRATA-7 Assessment Tool: NAMRATA-7 Assessment 42988 ([id number])
== END 2023-11-27 13:43 | disposition home or self-care (01) ==
PROVIDERS: PCP Nurse Practitioner Family; Visit Provider Nurse Practitioner Family
DX: Z00.00 Encounter for general adult medical examination without abnormal findings (principal); Z12.5 Encounter for screening for malignant neoplasm of prostate
CPT/HCPCS: 99397

== ENCOUNTER 2023-12-11 12:44 | Outpatient (AMB) | payer MEDICARE, SELFPAY ==
[2023-12-11 13:06] VITALS: BP 110/68; PULSE 52; TEMP 36.9; O2SAT 98; BMI 40.8
--- NOTE | 2023-12-11 13:06 | AM.OFFWIN_ITS ---
Intake Vital Signs 12/11/23 13:06 Height 6 ft 2 in Weight 318 lb BMI 40.8 BP 110/68 Blood Pressure Location Rt brachial Position Sitting Pulse 52 Pulse Source Pulse Oximeter Temp 98.4 F Temp Source Oral Pulse Oximetry (%) 98 Oxygen Delivery Method Room Air Intake Visit Reasons: EP-under rt arm cyst Intake Note: pt c/o cyst under RT shoulder blade. Ongoing. Has become red and painful Patient Tobacco Use Status: Former Tobacco user Allergies hydrocodone [From Vicodin] Allergy (Unknown, Verified 12/11/23 13:39) rash morphine Allergy (Unknown, Verified 12/11/23 13:39) rash Do you need a note to return to daycare/school/sports/work: No HPI HPI Comments History of Present Illness Details Patient is a 73-year-old male who states he is on 500 mg of penicillin twice a day to control a cellulitis complaining of a cyst on his left mid back. He states it has been there for a couple of days and it is getting more painful. He also states in that same area he has a lipoma that is been there for years and has not bothered him. He had a removed about 10 years ago and was told that it would grow back and it did but it has never bothered him. Now he states there is a cyst next to it that is painful. He denies any drainage from the area and he denies any fevers. Patient also states he is on Eliquis [facility] Medical History Essential hypertension Persistent atrial fibrillation Sacroiliac inflammation Aneurysm Dislocation of right shoulder joint Shoulder pain with history of repair of rotator cuff IFG (impaired fasting glucose) MARIE on CPAP Vertigo GERD (gastroesophageal reflux disease) PVD (peripheral vascular disease) Disc degeneration Sacroiliitis Cellulitis of multiple sites of buttock Surgical History History of rotator cuff tear History of vitrectomy History of bilateral carpal tunnel release H/O umbilical hernia repair History of bilateral knee replacement History of bilateral hip replacements Family History Father Leukemia Mother No problems noted. Social History Housing: House Alcohol intake: never Patient Tobacco Use Status: Former Tobacco user Years Smoked: 40 years ago e-Cigarette/Vaping Use: Never Used Second Hand Smoke Exposure: No Substance Use Type: Marijuana service: No Current occupational status: retired Cognitive needs: No Hearing needs: No Vision needs: No Review of Systems Const All systems reviewed & are unremarkable except as noted in HPI and below Physical Exam Vital Signs: Last Vital Signs Temp 98.4 F 12/11/23 13:06 Pulse 52 12/11/23 13:06 BP 110/68 12/11/23 13:06 Pulse Ox 98 12/11/23 13:06 Oxygen Delivery Method Room Air 12/11/23 13:06 BMI result Body Mass Index 40.8 Const General: cooperative, healthy appearing, comfortable, no acute distress and well developed Orientation/consciousness: patient oriented x3 Limitations: no limitations HEENT Head: Yes normal to inspection Eyes General: appearance normal, both eyes and all related structures Neck Neck: Yes normal visual inspection and Yes full ROM Resp Effort & Inspection: normal respiratory effort and able to speak in complete sentences Skin Other: 1.25cm area of erythema, slight fluctuance on left upper back on top of a relatively firm, mobile area that is approximately 2.5 cm oval, no ecchymosis, no lesions, no lacerations or abrasions noted. Unable to elicit any drainage. Neuro General: patient oriented x3 Extrem General: Yes normal to inspection Assessment & Plan Assessment & Plan (1) Abscess: Code(s): L02.91 - Cutaneous abscess, unspecified Plan: It appears this patient has a small abscess either on top of our directly adjacent to an existing lipoma. As he is on a blood thinner and I do not want to undermine the lipoma, we opted to go for antibiotics rather than trying to drain it with the incision and drainage. As he is on penicillin, I sent doxycycline for 5 day prescription, recommended he follow up with his PCP if no improvement in his abscess. (2) Lipoma of back: Code(s): D17.1 - Benign lipomatous neoplasm of skin and subcutaneous tissue of trunk Plan: Patient is aware that as long as the lipoma is not bothering him, and it is not growing, there is no need for further treatment Plan See above Medications: New doxycycline hyclate 100 mg PO BID 10 tabs 0RF Coding Level of Care Code Est Pt Level 4 (11942) Diagnoses Abscess L02.91 Lipoma of back D17.1
== END 2023-12-11 14:15 | disposition home or self-care (01) ==
PROVIDERS: PCP Nurse Practitioner Family; Visit Provider Physician Assistant
DX: L02.91 Cutaneous abscess, unspecified (principal); D17.1 Benign lipomatous neoplasm of skin and subcutaneous tissue of trunk
CPT/HCPCS: 99214

== ENCOUNTER 2023-12-12 07:27 | Outpatient (REF) | payer MEDICARE, SELFPAY ==
[2023-12-12 09:57] LABS: MANUAL DIFF FLAG NO
[2023-12-12 10:02] LABS: Basophils Percent Auto 0.5 % (0-2); Eosinophils Absolute Auto 0.1 X10*3/uL (0.0-0.4); Eosinophils Percent Auto 1.8 % (0-4); Hemoglobin 13.1 g/dl (14.0-18.0); Imm Gran Abs Auto 0.02 X10*3/uL (0.00-0.03); Imm Gran Pct Auto 0.4 % (0.0-0.4); Lymphocytes Absolute Auto 1.3 X10*3/uL (1.2-4.9); Lymphocytes Percent Auto 22.4 % (20-40); Mean Corpuscular Hemoglobin 31.1 pg (27.0-33.0); Mean Corpuscular Volume 97.4 fL (80.0-98.0); Mean Platelet Volume 10.1 fL (9.4-12.4); Monocytes Absolute Auto 0.5 X10*3/uL (0.1-1.2); Monocytes Percent Auto 8.1 % (2-11); Neutrophils Absolute Auto 3.7 x10*3/uL (2.0-8.3); Neutrophils Percent Auto 66.8 % (45-73); Platelet Count 152 X10*3/uL (160-400); Red Blood Count 4.21 X10*6/uL (4.60-5.80); Red Cell Distribution Width 14.6 % (11.0-16.0); White Blood Count 5.6 X10*3/uL (4.8-10.8)
[2023-12-12 10:30] LABS: Alanine Aminotransferase 16 U/L (0-40); Alkaline Phosphatase 100 U/L (39-117); Anion Gap 14 (12-20); Aspartate Amino Transferase 20 U/L (5-37); Bilirubin Total 0.7 mg/dL (0.0-1.0); Blood Urea Nitrogen 23 mg/dL (9-16); Calcium 9.9 mg/dL (8.4-10.2); Carbon Dioxide 30 mmol/L (22-29); Chloride 102 mmol/L (96-108); Cholesterol 118 mg/dL (<200); Estimated Glomerular Filt Rate 60; Glucose Fasting 112 mg/dL (60-99); HDL Cholesterol 44 mg/dL (>40); LDL Cholesterol Calculated 63 mg/dL (<100); Potassium 4.8 mmol/L (3.3-5.1); Sodium 141 mmol/L (135-145); Total Protein 7.6 g/dL (6.5-8.0); Triglycerides 55 mg/dL (<150)
[2023-12-12 10:37] LABS: TSH reflex Free T4 2.99 uIU/mL (0.32-4.0)
[2023-12-12 10:41] LABS: Appearance Urine Clear; Color Urine Yellow; Glucose Urine UA Negative (Negative); Leukocyte Esterase Urine Negative (Negative); Nitrite Urine Negative (Negative); Specific Gravity - Urine 1.015 (1.005-1.025); Urine Blood Negative (Negative); Urine Ketones Negative (Negative); Urine Protein Negative (Neg-Trace)
[2023-12-12 10:41] LABS: Prostate Specific Antigen Scr 0.57 ng/mL (<0.05-4.0)
== END 2023-12-12 07:28 | disposition home or self-care (01) ==
LOC: HO.HMGCLDS 07:27
PROVIDERS: PCP Nurse Practitioner Family; Visit Provider Nurse Practitioner Family
DX: Z00.00 Encounter for general adult medical examination without abnormal findings (principal); Z12.5 Encounter for screening for malignant neoplasm of prostate
CPT/HCPCS: 36415; 80053; 80061; 81003; 84153; 84443; 85025

== ENCOUNTER 2024-02-18 11:59 | Outpatient (AMB) | payer MEDICARE, SELFPAY ==
--- NOTE | 2024-02-18 12:28 | A.OFFVIS_ITS ---
Vital Signs 02/18/24 12:30 Height 6 ft 2 in Weight 319 lb 10.724 oz BMI 41.0 BP 122/62 Blood Pressure Location Lt brachial Position Sitting Pulse 77 Pulse Source Pulse Oximeter Intake Visit Reasons: 1 yr f/up Allergies hydrocodone [From Vicodin] Allergy (Unknown, Verified 12/11/23 13:39) rash morphine Allergy (Unknown, Verified 12/11/23 13:39) rash Medication List - Last Reconciled 02/18/24 by Darryl Henderson MD apixaban (Eliquis) 5 mg PO BID 90 days atorvastatin 10 mg PO BEDTIME carisoprodol (Soma) 350 mg PO BEDTIME PRN 10 days carvedilol (Coreg) 3.125 mg PO BID 90 days cephalexin 500 mg PO BID 7 days cholecalciferol (vitamin D3) 50 mcg PO DAILY dexlansoprazole 60 mg PO QAM doxycycline hyclate 100 mg PO BID hydrochlorothiazide 50 mg PO DAILY irbesartan 150 mg PO DAILY loperamide 2 mg PO QID PRN 20 days penicillin V potassium 500 mg PO BID polyethylene glycol 3350 (Miralax) 17 grams PO DAILY tramadol 50 mg PO TID PRN HPI Comments Details: Thomas returns for follow-up regarding atrial fibrillation. Incidentally noted during visit to chiropractor. He is managed on rate control regimen with beta-blockers. Also anticoagulation. He does not have any angina type symptoms. No palpitations. He states that he has had COVID twice after that, has been feeling short of breath off and on. He is also morbidly obese. Has MARIE on CPAP. Overall, he feels just about the same as before. No new complaints. Specifically no angina. [facility] Medical History Essential hypertension Persistent atrial fibrillation Sacroiliac inflammation Aneurysm Dislocation of right shoulder joint Shoulder pain with history of repair of rotator cuff IFG (impaired fasting glucose) MARIE on CPAP Vertigo GERD (gastroesophageal reflux disease) PVD (peripheral vascular disease) Disc degeneration Sacroiliitis Cellulitis of multiple sites of buttock Surgical History History of rotator cuff tear History of vitrectomy History of bilateral carpal tunnel release H/O umbilical hernia repair History of bilateral knee replacement History of bilateral hip replacements Family History Father Leukemia Mother No problems noted. Social History (Reviewed 11/27/23 @ 13:14 by DAVIDA [facility]UN[facility]) Housing: House Alcohol intake: never Patient Tobacco Use Status: Former Tobacco user Years Smoked: 40 years ago e-Cigarette/Vaping Use: Never Used Second Hand Smoke Exposure: No Substance Use Type: Marijuana service: No Current occupational status: retired Cognitive needs: No Hearing needs: No Vision needs: No Review of Systems Const Denies weakness ENT Denies dizziness Card Denies chest pain, Denies chest pain with activity, Denies syncope, Denies rapid heart rate, Denies pedal edema, Denies edema, Denies leg edema, Denies lightheadedness, Denies palpitations, Denies dyspnea, Denies dyspnea on exertion and Denies orthopnea Resp Denies cough, Denies dyspnea and Denies dyspnea on exertion GI Denies hematochezia and Denies change in stool character Musc Denies abnormal gait, Denies muscle cramps, Denies muscle weakness, Denies numbness, Denies radiating pain into limb and Denies tingling Neuro Denies abnormal gait, Denies dizziness, Denies syncope, Denies numbness, Denies tingling and Denies weakness Endo Denies palpitations Physical Exam Vital Signs: Last Vital Signs Pulse 77 02/18/24 12:30 BP 122/62 02/18/24 12:30 BMI result Body Mass Index 41.0 Const General: comfortable and no acute distress Orientation/consciousness: patient oriented x3 HEENT Other: Unremarkable Head: Yes normal to inspection Neck Neck: Yes normal visual inspection Chest Chest palpation & inspection: normal inspection of the chest Resp Auscultation: clear to auscultation bilaterally Cardio Palpation: normal PMI Heart sounds: S1 normal heart sound present, S2 normal heart sound present, no gallops, no murmurs and no rubs GI Palpation (GI): Soft to palpation Back/Spine/Pelvis Other: unremarkable Skin General skin exam: no rashes or lesions noted Neuro General: patient oriented x3 Extrem General: Yes normal to inspection Psych Mental Status: mental status grossly normal Office Procedures EKG Details: EKG with atrial fibrillation at a rate of 77/Min. [id number], Complete Assessment & Plan Assessment & Plan (1) Persistent atrial fibrillation: Code(s): I48.19 - Other persistent atrial fibrillation Category: Medical Plan: Cardiac studies reviewed. Echocardiogram with LVEF of 60-65%. No significant valvular issues. Mild pulmonary hypertension. Holter shows atrial fibrillation with well-controlled ventricular rate. Due to morbid obesity and obstructive sleep apnea, highly unlikely to remain in sinus even if cardioverted. May continue current strategy of rate control with anticoagulation. (2) Essential hypertension: Code(s): I10 - Essential (primary) hypertension Category: Medical Plan: He is on combination of Coreg, hydrochlorothiazide, irbesartan. Stable. (3) MARIE on CPAP: Code(s): G47.33 - Obstructive sleep apnea (adult) (pediatric); Z99.89 - Dependence on other enabling machines and devices Category: Medical Plan: Continue CPAP. (4) Ascending aorta enlargement: Code(s): I77.89 - Other specified disorders of arteries and arterioles Category: Medical Plan: In the last echocardiogram, ascending aortic size 4.2 cm. Considering his height/weight, do not believe it is truly enlarged. We will recheck before next visit. (5) Morbid obesity: Code(s): E66.01 - Morbid (severe) obesity due to excess calories Category: Medical Plan: He is well aware cardiovascular and general health implications from obesity. He states he is still trying to lose weight. Orders: Orders CA echo transthoracic complete 1 Year I48.19 - Other persistent atrial fibrillation Medications: Refilled apixaban (Eliquis) 5 mg PO BID 180 tabs 3RF 90 days Coding Level of Care Code Est Pt Level 4 (02529) Diagnoses Persistent atrial fibrillation I48.19 Essential hypertension I10 MARIE on CPAP G47.33; Z99.89 Ascending aorta enlargement I77.89 Morbid obesity E66.01 CPT Codes EKG - CPT: 96720-[id number], Complete ([id number])
[2024-02-18 12:30] VITALS: BP 122/62; PULSE 77; BMI 41.0
== END 2024-02-18 12:49 | disposition home or self-care (01) ==
PROVIDERS: PCP Nurse Practitioner Family; Visit Provider Internal Medicine
DX: I48.19 Other persistent atrial fibrillation (principal); I10 Essential (primary) hypertension; G47.33 Obstructive sleep apnea (adult) (pediatric); Z99.89 Dependence on other enabling machines and devices; I77.89 Other specified disorders of arteries and arterioles; E66.01 Morbid (severe) obesity due to excess calories
CPT/HCPCS: 93010; 99214

== ENCOUNTER → 2024-02-18 11:59 | Outpatient (BNVA) | payer MEDICARE, SELFPAY | PROVIDERS: PCP Nurse Practitioner Family; Visit Provider Internal Medicine | DX: I48.19 Other persistent atrial fibrillation (principal); I10 Essential (primary) hypertension; I77.89 Other specified disorders of arteries and arterioles; G47.33 Obstructive sleep apnea (adult) (pediatric); E66.01 Morbid (severe) obesity due to excess calories; Z99.89 Dependence on other enabling machines and devices; Z68.41 Body mass index [BMI] 40.0-44.9, adult | CPT/HCPCS: 93005; 99212 ==

== ENCOUNTER 2024-07-24 09:57 | Outpatient (REF) | payer MEDICARE, SELFPAY ==
--- NOTE | ~2024-07-24 | XR_ITS ---
EXAMINATION: XR SACROILIAC JOINTS CLINICAL INFORMATION: M46.1 - Sacroiliitis, not elsewhere classified COMPARISON: None available. TECHNIQUE: 3 views of the sacroiliac joints FINDINGS: The sacrum is intact. The sacral arches appear normal. No bone lesions. Severe degenerative changes in the lower lumbar spine. Moderate to severe right and moderate left degenerative arthritis in the SI joints. 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 There are bilateral inferior osteophytic spurs. There are no erosions or definite evidence of inflammatory arthropathy. There are bilateral hip arthroplasties, without definite complication evident. No soft tissue abnormalities. XR/XR sacroiliac joint min 3V IMPRESSION: Moderate to severe right greater than left degenerative arthritis in the SI joints with partial ankylosis on the right. Electronically signed by: Jason Francisco MD 07/25/2024 03:35 PM EDT
--- OUTSIDE RECORDS SUMMARY | 2024-07-24 11:17 | XMS_ITS | Clinical Summary ---
Author Organization [facility] Address [address] [place] [address] Care Team Providers Care Upsetter Helper Name Role Phone Jaquan Tristan MD Primary Care Provider [phone] Allergies Active Allergy Reactions Criticality Noted Date Comments Morphine Rash/Dermatitis Medium 04/14/2019 Hydrocodone-Acetaminophen Delirium/Confu filipe/Psychosi s High 04/14/2019 Medications hydrochlorothiaz yaya (HYDRODIURIL) 50 MG tablet every morning. 0 Active magnesium 30 MG tablet Take 1 tablet (30 mg total) by mouth 2 (two) times a day. Active penicillin v potassium (VEETID) 500 MG tablet Take 1 tablet (500 mg total) by mouth 2 (two) times a day. Active Digestive Enzyme Cap Take by mouth every morning. Active Eliquis 5 MG tablet TAKE 1 TABLET ORALLY 2 TIMES A DAY FOR 30 DAYS 2 Active carvedilol (COREG) 3.125 MG tablet TAKE 1 TABLET BY MOUTH TWICE A DAY MUST ADMINISTER WITH A MEAL/FOOD 2 Active fluticasone (FloNASE) 50 mcg/spray nasal spray USE 1 PUFF INTO BOTH NOSTRILS TWICE A DAY 2 Active irbesartan (AVAPRO) 150 MG tablet Take 1 tablet (150 mg total) by mouth every morning. 2 Active atorvastatin (LIPITOR) 10 MG tablet Take 1 tablet (10 mg total) by mouth nightly. 4 Active linaclotide (LINZESS) 145 MCG Cap capsuleIndicatio ns:Bloating,Cons tipation, unspecified constipation type Take 1 capsule (145 mcg total) by mouth every morning before breakfast. For constipation 30 capsule 5 4 Active rifAXIMin (XIFAXAN) 550 MG tabletIndication s:Irritable bowel syndrome with diarrhea Take 1 tablet (550 mg total) by mouth every 8 (eight) hours around the clock. 42 tablet 4 Active dexlansoprazole (DEXILANT) 60 MG capsuleIndicatio ns:Gastroesophag eal reflux disease,Epigastr ic pain TAKE 1 CAPSULE BY MOUTH EVERY DAY IN THE MORNING BEFORE BREAKFAST 90 capsule 3 5 Active Active Problems No known active problems Family History Medical History Relation Name Comments Leukemia Father Relation Name Status Comments Father Social History Tobacco Use Types Packs/Day Years Used Date Smoking Tobacco: Never Smokeless Tobacco: Never Tobacco Cessation:Counseling Given: Not Answered Alcohol Use Standard Drinks/Week Comments Not Currently 0 (1 standard drink = 0.6 oz pure alcohol) Patient reported quit over several years ago. AUDIT-C Answer Date Recorded Q1: How often do you have a drink containing alcohol? Never 09/28/2023 Q2: How many drinks containi ng alcohol do you have on a typical day when you are drinking? Patient does not drink Q3: How often do you have si x or more drinks on one occasion? Never 09/28/2023 Sex and Gender Information Value Date Recorded Sex Assigned at Not on file Legal Sex Male 4:30 PM EDT Gender Identity Not on file Sexual Orientation Not on file Last Filed Vital Signs Vital Sign Reading Time Taken Comments Blood Pressure 139/71 10/09/2023 3:17 PM EDT Pulse 74 10/09/2023 3:17 PM EDT Temperature 35.9 ??C (96.6 ??F) 10/09/2023 1:22 PM ED T Respiratory Rate 16 10/09/2023 2:47 PM EDT Oxygen Saturation 97% 10/09/2023 3:17 PM EDT Inhaled Oxygen Concentration - - Weight 141 kg (310 lb) 10/09/2023 12:35 PM EDT Height 188 cm (6' 2 ) 09/28/2023 2:10 PM EDT Body Mass Index 39.8 09/28/2023 2:10 PM EDT Plan of Treatment Health Maintenance Due Date Last Done Comments Hepatitis C Virus Screening 1950 DTaP/Tdap/Td Vaccines (1 - Tdap) 1968 Pneumococcal Vaccines 50+ (1 of 1 - PCV) 1999 Zoster (Shingles) Vaccine (1 of 2) 1999 Influenza Vaccine 11/01/2023 01/03/2017 COVID-19 Vaccine (1 - 2023-2 5 season) 2023 RSV Vaccine 60 years and old er and Patients (1 - 1-dose 75+ series) 2024 Colonoscopy 01/25/2032 01/24/2022 Hepatitis B Vaccines Aged Out No long er eligible based on patient's age to complete this topic Insurance [employer] MGD MEDICARE [facility] MEDICARE Care Teams Upsetter Helper Relationship Specialty Start Date End Date Jaquan Tristan MD [address] [place] [address] PCP - General Family Medicine 05/21/19
--- OUTSIDE RECORDS SUMMARY | 2024-07-24 11:17 | XMS_ITS | Encounter Summary ---
Author Organization [facility] Address [address] [place] [address] Care Team Providers Care Rn Heart Name Role Phone Gabriela Granados APRN Primary Care Provider + Jaquan Tristan MD Primary Care Provider + [phone] Reason for Visit * Reason Comments Medication Refill Encounter Details Date Type Department Care Team (Late st Contact Info) Description 04/14/2019 [address] [facility] [address] [place] [address] Jerry Sanderson MD [address] [facility] [address] [place] [address] Epigastric pain Social History Tobacco Use Types Packs/Day Years Used Date Smoking Tobacco: Never Assessed Sex and Gender Information Value Date Recorded Sex Assigned at Not on file Legal Sex Male 4:30 PM EDT Gender Identity Not on file Sexual Orientation Not on file documented as of this encounter Miscellaneous Notes * Telephone Encounter - Nereida Sawyer MA - 04/14/2019 2:38 PM EST Junaid Cyr can you please call and schedule f/u, maybe in [place] like Dr. Olsen suggested * Telephone Encounter - Nereida Sawyer MA - 04/14/2019 2:21 PM EST JUAN 12/15/15, Colonoscopy 01/17/17. Updated allergies from [facility] documented in this encounter Plan of Treatment Not on file documented as of this encounter Visit Diagnoses Diagnosis Epigastric pain Abdominal pain, epigastric documented in this encounter Care Teams Rn Heart Relationship Specialty Start Date End Date Gabriela Granados APRN [address] [facility] [place] [address] PCP - General Family Medicine 04/14/19 05/20/19 Jaquan Tristan MD [address] [facility] [place] [address] PCP - General Family Medicine 05/21/19 documented as of this encounter
--- OUTSIDE RECORDS SUMMARY | 2024-07-24 11:17 | XMS_ITS | Clinical Summary ---
Author Organization [facility] Address [id number] [place] [id number] Care Team Providers Care Erp Pm Name Role Phone DamiánJaquan skelton Mata CUNHA Primary Care Provider [phone] Surgical History Surgery Date Site/Laterality Comments JOINT REPLACEMENT PROCEDURE:JOINT REPLACEMENT;COMMENT:left knee ROTATOR CUFF REPAIR Left PROCEDURE:ROTATOR CUFF REPAIR CARPAL TUNNEL RELEASE PROCEDURE:CARPAL TUNNEL RELEASE TOTAL KNEE ARTHROPLASTY 2007 Left PROCEDURE:TOTAL KNEE ARTHROPLASTY TOTAL HIP ARTHROPLASTY 1998 Right PROCEDURE:TOTAL HIP ARTHROPLASTY TOTAL HIP ARTHROPLASTY 2000 Left PROCEDURE:TOTAL HIP ARTHROPLASTY TRIGGER FINGER RELEASE Bilateral PROCEDURE:TRIGGER FINGER RELEASE;COMMENT:carpal tunnel and trigger fingers VENA CAVA FILTER 02/07/14 PROCEDURE:VENA CAVA FILTER PLACEMENT SHOULDER SURGERY 2000 PROCEDURE:SHOULDER SURGERY;COMMENT:rotator cuff SHOULDER SURGERY 1967 Right PROCEDURE:SHOULDER SURGERY SHOULDER SURGERY 2011 PROCEDURE:SHOULDER SURGERY;COMMENT:rotator cuff HERNIA REPAIR PROCEDURE:HERNIA REPAIR;COMMENT: ventral or umbilical with mesh KNEE DISLOCATION SURGERY PROCEDURE:KNEE DISLOCATION SURGERY;COMMENT:rt and lt total knees UPPER GASTROINTESTINAL ENDOSCOPY 01/17/2017 N/A PROCEDURE:UPPER GASTROINTESTINAL ENDOSCOPY;COMMENT:Procedure: UPPER ENDOSCOPY-EGD; Surgeon: Jerry Sanderson MD; Location: [facility]; Service: Gastroenterology; Laterality: N/A; COLONOSCOPY 01/17/2017 N/A PROCEDURE:COLONOSCOPY;COMMENT :Procedure: COLONOSCOPY; Surgeon: Jerry Sanderson MD; Location: [facility]; Service: Gastroenterology; Laterality: N/A; UPPER GASTROINTESTINAL ENDOSCOPY 11/10/2015 N/A PROCEDURE:UPPER GASTROINTESTINAL ENDOSCOPY;COMMENT:Procedure: UPPER ENDOSCOPY-EGD; Surgeon: Jerry Sanderson MD; Location: [facility]; Service: Gastroenterology; Laterality: N/A; TOTAL KNEE ARTHROPLASTY 02/10/2014 Right PROCEDURE:TOTAL KNEE ARTHROPLASTY;COMMENT:Procedur e: REPLACEMENT TOTAL KNEE; Surgeon: Ambrose Olson MD; Location: [facility] Service: Orthopedics; Laterality: Right; CATARACT EXTRACTION W/ INTRAOCULAR LENS IMPLANT Left PROCEDURE:CATARACT EXTRACTION W/ INTRAOCULAR LENS IMPLANT COLONOSCOPY 01/24/2022 N/A PROCEDURE:COLONOSCOPY;COMMENT :Procedure: COLONOSCOPY; Surgeon: Isra Alvarado MD; Location: [facility]; Service: Gastroenterology; Laterality: N/A; Medical History Medical History Date Comments Edema of both legs DX:Edema of b oth legs Osteoarthritis DX:Osteoarthriti s GERD (gastroesophageal reflux disease) DX:GERD (gastroesophageal reflux disease) Diverticulitis DX:Diverticuliti s Cellulitis and abscess of buttock DX:Cellulitis and abscess of buttock;COMMENT:on antibiotics for one year. Pt unsure if strep or staph. PE (pulmonary embolism) 2007 DX:PE (p ulmonary embolism);COMMENT:after TKA MARIE on CPAP DX:MARIE on CPAP Vertigo DX:Vertigo Angina pectoris (CMS/HCC V24) DX :Angina pectoris (HCC) Atrial fibrillation (CMS/HCC V24, CMS/HCC V28) DX:Atrial fibrillation (HCC) Hypertension DX:Hypertension Cataract DX:Cataract Back pain DX:Back pain Family History Medical History Relation Name Comments Leukemia Father Relation Name Status Comments Father Social History Tobacco Use Types Packs/Day Years Used Date Smoking Tobacco: Former Cigarettes Q uit: 04/02/2014 Smokeless Tobacco: Never Alcohol Use Standard Drinks/Week Comments No 0 (1 standard drink = 0.6 oz pur e alcohol) Sex and Gender Information Value Date Recorded Sex Assigned at Not on file Legal Sex Male 11:04 AM EST Gender Identity Not on file Sexual Orientation Not on file Obstetrics History Plan of Treatment Health Maintenance Due Date Last Done Comments DTaP,Tdap,and Td Vaccines (1 - Tdap) 1968 Zoster Vaccines (2 of 3) 03/22/2016 01/26/2016 Pneumococcal Vaccine: 50+ Ye ars (2 of 2 - PCV) 01/02/2019 01/02/2018 Abdominal Aortic Aneurysm (A AA) Screen 02/28/2022 Cholesterol Screening (Lipid Panel) 02/28/2022 Colorectal Cancer Screening: Colonoscopy 02/28/2022 Depression Screening 02/28/2022 Falls Risk Assessment 02/28/2022 Hepatitis C Screening 02/28/2022 Social Influencers of Health Screening 02/28/2022 COVID-19 Vaccine ( - 2023-2 5 season) 2023 RSV Immunization Adult Patie nts (1 - 1-dose 75+ series) 2024 Influenza Vaccine (Season Ended) 2024 HIB Vaccines Aged Out No longer eligi ble based on patient's age to complete this topic HPV Vaccines Aged Out No longer eligi ble based on patient's age to complete this topic Hepatitis A Vaccines Aged Out No long er eligible based on patient's age to complete this topic Hepatitis B Vaccines Aged Out No long er eligible based on patient's age to complete this topic IPV Vaccines Aged Out No longer eligi ble based on patient's age to complete this topic MMR Vaccines Aged Out No longer eligi ble based on patient's age to complete this topic Meningococcal ACWY Vaccine Aged Out N o longer eligible based on patient's age to complete this topic Meningococcal B Vaccine Aged Out No l onger eligible based on patient's age to complete this topic RSV Immunization Patients Un ta 20 months Aged Out No longer eligible b ased on patient's age to complete this topic Varicella Vaccines Aged Out No longer eligible based on patient's age to complete this topic Care Teams Erp Pm Relationship Specialty Start Date End Date Jaquan Tristan NP [address] [facility] [address] PCP - General Family Medicine 01/24/22
--- OUTSIDE RECORDS SUMMARY | 2024-07-24 11:17 | XMS_ITS | Clinical Summary ---
Author Organization [facility] Address [address] [place] [address] Care Team Providers Care Truck Rental Service Attendant Name Role Phone Jaquan Tristan Primary Care Provider [phone] Allergies Active Allergy Reactions Criticality Noted Date Comments Morphine And Codeine Other (See Comments) 02/05/2014 diaphortic hallucinations Hydrocodone-Acetami nophen Rash Medium 02/05/2014 Medications Medication Sig Dispensed Refills Start Date End Date Status penicillin v potassium (VEETID) 500 MG tablet Take 500 mg by mouth 2 (two) times a day. For cellulitis on buttocks 0 Active Dexlansoprazole (DEXILANT PO) Take 60 mg by mouth daily. 0 Active tadalafil (CIALIS) 5 MG tablet Take 1 tablet (5 mg total) by mouth daily as needed for erectile dysfunction. 10 tablet 3 03/19/2018 Active apixaban (ELIQUIS) 5 MG TABS tablet Take 5 mg by mouth every 12 (twelve) hours. 0 Active carvedilol (COREG) 3.125 MG tablet Take 3.125 mg by mouth daily. 0 Active hydroCHLOROthiazide (HYDRODIURIL) 50 MG tablet Take 50 mg by mouth daily. 0 Active Magnesium 125 MG CAPS Take by mouth daily. 0 Active irbesartan (AVAPRO) 150 MG tablet Take 150 mg by mouth daily. 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 PE (pulmonary embolism) 03/20/2016 Adiposity 03/20/2016 Hemorrhoids 03/20/2016 Sebaceous cyst 01/29/2015 Osteoarthritis of knee 02/12/2014 Immunizations Name Administration Dates Next Due Pneumococcal Polysaccharide PPSV23 01/02/2018 Zostavax (Zoster Live) 01/26/2016 Family History Medical History Relation Name Comments Leukemia Father Relation Name Status Comments Father Social History Tobacco Use Types Packs/Day Years Used Date Smoking Tobacco: Former Cigars Q uit: 2014 Smokeless Tobacco: Never Tobacco Cessation:Ready to Q uit: No Alcohol Use Standard Drinks/Week Comments No 0 (1 standard drink = 0.6 oz pur e alcohol) 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 Sex and Gender Information Value Date Recorded Sex Assigned at Male 01/04/2022 2:53 PM EDT Gender Identity Male 01/04/2022 2:53 PM EDT Sexual Orientation Not on file Job Start Date Occupation Industry Not on file Not on file Not on file Last Filed Vital Signs Vital Sign Reading Time Taken Comments Blood Pressure 112/53 01/24/2022 10:33 AM EDT Pulse 82 01/24/2022 10:33 AM EDT Temperature 37.3 ??C (99.1 ??F) 01/24/2022 10:05 AM E DT Respiratory Rate 7 01/24/2022 10:33 AM EDT Oxygen Saturation 96% 01/24/2022 10:33 AM EDT Inhaled Oxygen Concentration - - Weight 144.7 kg (319 lb) 01/24/2022 8:17 AM EDT Height 185.4 cm (6' 1 ) 01/24/2022 8:17 AM EDT Body Mass Index 42.09 01/24/2022 8:17 AM EDT Plan of Treatment Health Maintenance Due Date Last Done Comments Hepatitis C Screening 1950 COVID-19 Vaccine (#1) 1949 Depression Screening 1961 BMI Counseling 1967 DTap / Tdap / Td (1 - Tdap) 1968 Fall Risk Assessment 2014 Shingrix-Zoster Vaccine (1 o f 2) 03/22/2016 Pneumococcal Vaccine (2 of 2 - PCV) 01/02/2019 01/02/2018 Preventative Health Evaluation 03/19/2019 03/19/2018 Influenza Vaccine (#1) 2023 8, 01/03/2017 RSV Adult > 60+ Yrs or (1 - 1-dose 75+ series) 2024 Colon Cancer Screening (Colonoscopy) 01/25/2032 01/24/2022 Hepatitis B Vaccines Aged Out No long er eligible based on patient's age to complete this topic RSV Ped < 20 months Aged Out No longe r eligible based on patient's age to complete this topic Medical Devices Implanted Type Area Measurement Operator Device Identifier Shelf Expiration Date Model / Serial / Lot Samson Weber Vena Cava Filter- 4 Implanted:02/06 by Pilo Zaragoza DO (Quantity not on file) Explanted:(Hood tity not on file) / IGTCFS-65- 1_JUG-TULI P / [id number] Cement Simplex P Radiopaque Full Dose Bone - [id number] - [id number] Implanted:Qty: 2 on 02/10/2014 by Ambrose Olson MD at [facility] Right: Knee [employer] 05/13/2016 6191-1-010 / / [id number] Component Triathlon 7 Posterior Stabilized Cemented Femoral - [id number] - [id number] Implanted:Qty: 1 on 02/10/2014 by Ambrose Olson MD at [facility] Right: Knee [employer] 07/11/2018 5515-F-702 / / [id number] Plug Artisan Medium 25mm Plug Bone Cement - [id number] - [id number] Implanted:Qty: 1 on 02/10/2014 by Ambrose Olson MD at [facility] Right: Knee [employer] 02/10/2015 6215-5-011 / / [id number] Stem Triathlon 50mm 15mm Cemented Totl Stabilized Cocr - [id number] - [id number] Implanted:Qty: 1 on 02/10/2014 by Ambrose Olson MD at [facility] Right: Knee [employer] 08/10/2018 5560-S-115 / / [id number] Baseplate Triathlon 7 [place] Totl Stabilized Cemented - [id number] - [id number] Implanted:Qty: 1 on 02/10/2014 by Ambrose Olson MD at [facility] Right: Knee [employer] 05/13/2018 5521-B-700 / / [id number] Component Patella 36mm Trini 10mm Thick Symmetric [facility] - [id number] - [id number] Implanted:Qty: 1 on 02/10/2014 by Ambrose Olson MD at [facility] Right: Knee [employer] 11/10/2018 5550-L-360 / / [id number] Insert Tibial Articular Posterior Stabilized 11mm Thick Size - [id number] - [id number] Implanted:Qty: 1 on 02/10/2014 by Ambrose Olson MD at [facility] Right: Knee [employer] 02/10/2018 5532-P-711 / / [id number] Advance Directives For more information, please contact: [phone] Documents on File Type Date Recorded Patient Data Warehouse Architect Expl anation Advance Directive and Living Will 10/07/2015 9:47 AM Latest Code Status on File Code Status Date Activated Date Inactivated Comments Full Code 01/24/2022 10:06 AM 01/24/2022 4:46 PM Th is code status was ascertained in the following way: discussion with patient. Code Status History Code Status Date Activated Date Inactivated Comments Full Code 01/17/2017 9:47 AM 01/17/2017 4:47 PM Thi s code status was ascertained in the following way: discussion with patient. Full Code 02/10/2014 10:55 AM 02/12/2014 5:33 PM Th is code status was ascertained in the following way: per living will or healthcare instructions. Full Code 02/10/2014 5:18 AM 02/10/2014 10:55 AM Th is code status was ascertained in the following way: discussion with patient. Care Teams Truck Rental Service Attendant Relationship Specialty Start Date End Date Jaquan Tristan: [phone] [address] [facility] [place] [address] PCP - General Family Medicine 01/24/22
--- OUTSIDE RECORDS SUMMARY | 2024-07-24 11:17 | XMS_ITS | Clinical Summary ---
Author Organization [facility] Address [address] [place] [address] Care Team Providers Care Dressage Judge Name Role Phone Luisito Jha MD Primary Care Provider Allergies Active Allergy Reactions Criticality Noted Date Comments Morphine Hallucinations 12/18/2017 Hydrocodone-Acetaminophen Hives High 12/18/2017 Medications aspirin 81 MG EC tablet Take 81 mg by mouth daily.. Active b complex vitamins capsule Take 1 capsule by mouth daily.. Active dexlansoprazole (DEXILANT) 30 mg capsule Take 30 mg by mouth daily.. Active meloxicam (MOBIC) 15 MG tablet Take 15 mg by mouth daily.. Active penicillin v potassium (VEETID) 500 MG tablet Take 500 mg by mouth 2 (two) times daily (0800, 1800).. Active Active Problems No known active problems Social History Tobacco Use Types Packs/Day Years Used Date Smoking Tobacco: Never Assessed Sex and Gender Information Value Date Recorded Sex Assigned at Not on file Legal Sex Male 9:12 AM EDT Gender Identity Not on file Sexual Orientation Not on file Last Filed Vital Signs Vital Sign Reading Time Taken Comments Blood Pressure 163/91 12/18/2017 12:52 PM EDT Pulse 66 12/18/2017 12:52 PM EDT Temperature - - Respiratory Rate - - Oxygen Saturation - - Inhaled Oxygen Concentration - - Weight 153.8 kg (339 lb) 12/18/2017 12:52 PM EDT Height 188 cm (6' 2 ) 12/18/2017 12:52 PM EDT Body Mass Index 43.53 12/18/2017 12:52 PM EDT Plan of Treatment Health Maintenance Due Date Last Done Comments HIV screening 1962 Hepatitis C screening 1967 Tetanus adult (Td q 10,TDAP once) 1969 Lipid disorder screening 1989 Colon cancer screening, Colonoscopy 1994 Diabetes screening 1994 Pneumococcal Vaccine (50+ ye ars) (1 of 1 - PCV) 1999 Shingles vaccine (Shingrix) (1 of 2 - Shingrix (RZV) 2 Dose Standard Series) 1999 Covid-19 vaccine series (1 - 2023- season) 2023 RSV Immunization (1 - 1-dose 75+ series) 2024 Influenza vaccine 12/01/2024 Meningococcal Vaccine Aged Out No tanna kyrie eligible based on patient's age to complete this topic Insurance [facility] Care Teams Dressage Judge Relationship Specialty Start Date End Date Luisito Jha MD [address] [place] [place] [address] PCP - General Internal Medicine 12/14/17
== END 2024-07-24 09:58 | disposition home or self-care (01) ==
LOC: HO.HMGCLDS 09:57
PROVIDERS: PCP Nurse Practitioner Family; Visit Provider Nurse Practitioner Family
DX: M46.1 Sacroiliitis, not elsewhere classified (principal)
CPT/HCPCS: 72202

== ENCOUNTER → 2024-07-24 10:03 | Outpatient (BNV) | payer MEDICARE, SELFPAY | PROVIDERS: PCP Nurse Practitioner Family; Visit Provider Radiology Diagnostic Radiology | DX: M53.3 Sacrococcygeal disorders, not elsewhere classified (principal) | CPT/HCPCS: 72202 ==

== ENCOUNTER 2024-12-17 07:03 | Outpatient (REF) | payer MEDICARE, SELFPAY ==
--- OUTSIDE RECORDS SUMMARY | 2024-12-17 07:06 | XMS_ITS | Clinical Summary ---
Author Organization [facility] Address [address] [place] [address] Care Team Providers Care Financial Institution Manager Name Role Phone Jaquan Tristan Primary Care Provider [phone] Allergies Active Allergy Reactions Criticality Noted Date [...] 82 01/24/2022 10:33 AM EDT Temperature 37.3 C (99.1 F) 01/24/2022 10:05 AM EDT Respiratory Rate 7 01/24/2022 10:33 AM EDT [...] 01/02/2019 01/02/2018 Preventative Health Evaluation 03/19/2019 03/19/2018 RSV Adult > 60+ Yrs or (1 - 1-dose 75+ series) 2024 Influenza Vaccine (#1) 2024 8, 01/03/2017 Colon Cancer Screening (Colonoscopy) 01/25/2032 01/24/2022 Hepatitis B Vaccines Aged Out No long er eligible based on patient's age to complete this topic RSV Ped < 20 months Aged Out No longe r eligible based on patient's age to complete this topic Medical Devices Implanted Type Area Assembler Corncob Pipes Device Identifier Shelf Expiration Date Model / Serial / Lot Samson Weber Vena Cava Filter- 4 Implanted:02/06 by Pilo Zaragoza DO (Quantity not on file) Explanted:(Hood tity not on file) / IGTCFS-65- 1_JUG-TULI P / [id number] Cement Simplex P Radiopaque Full Dose Bone - [id number] - [id number] Implanted:Qty: 2 on 02/10/2014 by Ambrose Olson MD [place] [facility] Right: Knee [employer] 05/13/2016 6191-1-010 / / [id number] Component Triathlon 7 Posterior Stabilized Cemented Femoral - [id number] - [id number] Implanted:Qty: 1 on 02/10/2014 by Ambrose Olson MD at [facility] Right: Knee [employer] 07/11/2018 5515-F-702 / / [id number] Plug Artisan Medium 25mm Plug Bone Cement - [id number] - [id number] Implanted:Qty: 1 on 02/10/2014 by Ambrose Olson MD at [facility] Right: Knee [employer] 02/10/2015 6215-5-011 / / [id number] Stem Triathlon 50mm 15mm Cemented Totl Stabilized Cocr - [id number] - [id number] Implanted:Qty: 1 on 02/10/2014 by Ambrose Olson MD at [facility] Right: Knee [employer] 08/10/2018 5560-S-115 / / [id number] Baseplate Triathlon 7 [place] Totl Stabilized Cemented - [id number] - [id number] Implanted:Qty: 1 on 02/10/2014 by Ambrose Olson MD at [facility] Right: Knee [employer] 05/13/2018 5521-B-700 / / [id number] Component Patella 36mm Trini 10mm Thick Symmetric Triathlon - [id number] - [id number] Implanted:Qty: 1 on 02/10/2014 by Ambrose Olson MD at [facility] Right: Knee [employer] 11/10/2018 5550-L-360 / / [id number] Insert Tibial Articular Posterior Stabilized 11mm Thick Size - [id number] - [id number] Implanted:Qty: 1 on 02/10/2014 by Ambrose Olson MD at [facility] Right: Knee [employer] 02/10/2018 5532-P-711 / / [id number] Advance Directives For more information, please contact: [phone] Documents on File Type Date Recorded 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 Care Teams Financial Institution Manager Relationship Specialty Start Date End Date Jaquan Tristan: [phone] [address] [facility] [place] [address] PCP - General Family Medicine 01/24/22
--- OUTSIDE RECORDS SUMMARY | 2024-12-17 07:06 | XMS_ITS | Encounter Summary ---
Author Organization [facility] Address [address] [place] [address] Care Team Providers Care Photogrammetrist Name Role Phone Gabriela Granados APRN Primary Care Provider + Jaquan Tristan MD Primary Care Provider [phone] Reason for Visit * Reason Comments Medication Refill Encounter Details Date Type Department Care Team (Late st Contact Info) Description 04/14/2019 Refill [facility] [address] [place] [address] Jerry Sanderson MD [address] [facility] [address] [place] [address] Epigastric pain Social History Tobacco Use Types [...] please call and schedule f/u, maybe in [place] like Dr. Olsen suggested * Telephone Encounter - Nereida Sawyer MA - 04/14/2019 2:21 PM EST JUAN 12/15/15, Colonoscopy 01/17/17. Updated allergies from [facility] documented in this encounter Plan of Treatment Upcoming Encounters Date Type Department Care Team (Late st Contact Info) Description 02/04/2025 10:30 AM EST Appointment [facility] [address] [place] [address] Lawanda Dalton MD [address] [place] [address] 02/16/2025 2:20 PM EST Procedure visit [address] [address] documented as of this encounter Visit Diagnoses Diagnosis Epigastric pain Abdominal pain, epigastric documented in this encounter Care Teams Photogrammetrist Relationship Specialty Start Date End Date Gabriela Granados APRN [address] [place] [address] PCP - General Family Medicine 04/14/19 05/20/19 Jaquan Tristan MD [address] [place] [address] PCP - General Family Medicine 05/21/19 documented as of this encounter
--- OUTSIDE RECORDS SUMMARY | 2024-12-17 07:06 | XMS_ITS | Clinical Summary ---
Author Organization [email or web address] [facility] Address [address] [place] [address] Care Team Providers Care Pants Busheler Name Role Phone DamiánJaquan skelton Mata CUNHA Primary Care Provider [phone] Surgical History Surgery Date Site/Laterality Comments JOINT [...] UPPER ENDOSCOPY-EGD; Surgeon: Jerry Sanderson MD; Location: [facility]; Service: Gastroenterology; Laterality: N/A; COLONOSCOPY 01/17/2017 N/A PROCEDURE:COLONOSCOPY;COMMENT :Procedure: COLONOSCOPY; Surgeon: Jerry Sanderson MD; Location: [facility]; Service: Gastroenterology; Laterality: N/A; UPPER GASTROINTESTINAL ENDOSCOPY 11/10/2015 N/A PROCEDURE:UPPER GASTROINTESTINAL ENDOSCOPY;COMMENT:Procedure: UPPER ENDOSCOPY-EGD; Surgeon: Jerry Sanderson MD; Location: [facility]; Service: Gastroenterology; Laterality: N/A; TOTAL KNEE ARTHROPLASTY 02/10/2014 Right PROCEDURE:TOTAL KNEE ARTHROPLASTY;COMMENT:Procedur e: REPLACEMENT TOTAL KNEE; Surgeon: Ambrose Olson MD; [facility] Service: Orthopedics; Laterality: Right; CATARACT EXTRACTION W/ INTRAOCULAR LENS IMPLANT Left PROCEDURE:CATARACT EXTRACTION W/ INTRAOCULAR LENS IMPLANT COLONOSCOPY 01/24/2022 N/A PROCEDURE:COLONOSCOPY;COMMENT :Procedure: COLONOSCOPY; Surgeon: Isra Alvarado MD; Location: [facility]; Service: Gastroenterology; Laterality: N/A; Medical History [...] Health Maintenance Due Date Last Done Comments Pneumococcal Vaccine: 50+ Years (2 of 2 - PCV) 01/02/2019 01/02/2018 Abdominal Aortic Aneurysm (AAA) Screen 02/28/2022 Colorectal Cancer Screening: Colonoscopy 02/28/2022 Falls Risk Assessment 02/28/2022 Hepatitis C Screening 02/28/2022 Social Influencers of Health Screening 02/28/2022 Cholesterol Screening (Lipid Panel) 03/19/2023 03/19/2018 Depression Screening 04/02/2024 COVID-19 Vaccine ( season) 2024 07/05/2021, 01/24/2021, 07/13/2020, Additional history exists Influenza Vaccine (#1) 2024 , 02/07/2023, 01/09/2022, Additional history exists DTaP,Tdap,and Td Vaccines (2 - Td or Tdap) 04/15/2029 04/15/2019 Zoster Vaccines Completed 10/01/2020, 05/04, 01/26/2016 RSV Immunization Adult Patients Completed 04/06/2023 HIB Vaccines Aged Out No longer eligi [...] to complete this topic RSV Immunization Patients Under 20 months Aged Out No longer eligible based on patient's age to complete this topic Varicella Vaccines Aged Out No longer eligible based on patient's age to complete this topic Care Teams Pants Busheler Relationship Specialty Start Date End Date Jaquan Tristan NP [address] [facility] [place], [place] PCP - General Family Medicine 01/24/22
--- OUTSIDE RECORDS SUMMARY | 2024-12-17 07:06 | XMS_ITS | Encounter Summary ---
Author Organization [facility] Address [address] [place] [address] Care Team Providers Care Blue Line Operator Name Role Phone Jaquan Tristan MD Primary Care Provider [phone] Encounter Details Date Type Department Care Team (Late st Contact Info) Description 12/16/2024 Scanned Document [facility]monary [place] [address] [place] [phone] Lyle Jerome MD [address] [place] [address] Social History Tobacco Use Types Packs/Day Years Used Date Smoking Tobacco: Never Smokeless Tobacco: Never Alcohol Use Standard Drinks/Week Comments Not Currently [...] on file documented as of this encounter Plan of Treatment Upcoming Encounters Date Type Department Care Team (Late st Contact Info) Description 02/04/2025 10:30 AM EST Appointment [facility] [address] [place] [phone] Lawanda Dalton MD [address] [place] [address] 02/16/2025 2:20 PM EST Procedure visit [facility]monary [address] [phone] documented as of this encounter Visit Diagnoses Not on filedocumented in this encounter Care Teams Blue Line Operator Relationship Specialty Start Date End Date Jaquan Tristan MD [address] [place] [address] PCP - General Family Medicine 05/21/19 documented as of this encounter
--- OUTSIDE RECORDS SUMMARY | 2024-12-17 07:06 | XMS_ITS | Clinical Summary ---
Author Organization [facility] Address [address] [place] [address] Care Team Providers Care Equity Manager Name Role Phone Jaquan Tristan MD Primary Care Provider Allergies Active Allergy Reactions Criticality Noted Date Comments Morphine Rash/Dermatitis Medium 04/14/2019 Hydrocodone-Acetaminophen Delirium/Confu filipe/Psychosi s High 04/14/2019 Medications hydrochlorothiaz yaya (HYDRODIURIL) 50 MG tablet every morning. 04/14/19 20 Active magnesium 30 MG tablet Take 1 tablet (30 mg total) by mouth 2 (two) times a day. Active penicillin v potassium (VEETID) 500 MG tablet Take 1 tablet (500 mg total) by mouth 2 (two) times a day. Active Eliquis 5 MG tablet TAKE 1 TABLET ORALLY 2 TIMES A DAY FOR 30 DAYS 12/06/19 22 Active carvedilol (COREG) 3.125 MG tablet TAKE 1 TABLET BY MOUTH TWICE A DAY MUST ADMINISTER WITH A MEAL/FOOD 11/12/19 22 Active irbesartan (AVAPRO) 150 MG tablet Take 1 tablet (150 mg total) by mouth every morning. 11/12/19 22 Active atorvastatin (LIPITOR) 10 MG tablet Take 1 tablet (10 mg total) by mouth nightly. 08/04/19 24 Active rifAXIMin (XIFAXAN) 550 MG tabletIndication s:Irritable bowel syndrome with diarrhea Take 1 tablet (550 mg total) by mouth every 8 (eight) hours around the clock. 42 tablet 12/26/19 24 Active dexlansoprazole (DEXILANT) 60 MG capsuleIndicatio ns:Gastroesophag eal reflux disease,Epigastr ic pain TAKE 1 CAPSULE BY MOUTH EVERY DAY IN THE MORNING BEFORE BREAKFAST 90 capsule 3 04/15/19 25 Active tiZANidine (ZANAFLEX) 4 MG tablet 10/01/19 25 Active Digestive Enzyme Cap Take by mouth every morning. 025 Discontinu ed(Med List Clean-up/O ld Med - No E-Cancel/N o AVS) fluticasone (FloNASE) 50 mcg/spray nasal spray USE 1 PUFF INTO BOTH NOSTRILS TWICE A DAY 12/13/19 22 025 Discontinu ed(Med List Clean-up/O ld Med - No E-Cancel/N o AVS) linaclotide (LINZESS) 145 MCG Cap capsuleIndicatio ns:Bloating,Cons tipation, unspecified constipation type Take 1 capsule (145 mcg total) by mouth every morning before breakfast. For constipation 30 capsule 5 08/13/19 24 025 Discontinu ed(Med List Clean-up/O ld Med - No E-Cancel/N o AVS) Sodium Sulfate-Mag Sulfate-KCl (Sutab) 7159-279-067 MG TabIndications:H istory of colon polyps Take 12 tablets by mouth once. Take 12 tablets by mouth once. On day prior to colonoscopy, take 12 tablets orally followed by 48 OUNCES OF WATER. Repeat 6 hours prior to your procedure time on day of the colonoscopy. See instructions available for SUTAB (pink) on [facility] website. 24 tablet 12/09/19 25 025 Active Problems No known active problems Encounters Date Type Department Care Team Description 12/16/2024 Scanned Document [facility] Pulmonary [address] [place] [address] Lyle Jerome MD 12/08/2024 11:30 AM EDT Office Visit [address] [place] [address] Lawanda Dalton MD History of colon polyps (Primary Dx); Gastroesophageal reflux disease with esophagitis without hemorrhage; Constipation, unspecified constipation type 12/04/2024 Transcribe Orders [facility] Pulmonary [place] [address] [place] [address] Lyle Jerome MD MARIE (obstructive sleep apnea) (Primary Dx) from Last 3 Months Immunizations Immunization Administration Dates Next Due Covid-19 mRNA Bivalent Vacci ne - Moderna 50 mcg/0.5mL 12+ 04/15/2022 Influenza High-Dose Quadrivalent,(FLUZONE HIGH-DOSE), Perservative Free IM 0.7 mL 65 years and older 01/12/2019 Influenza High-Dose Trivalen t,(FLUZONE HIGH-DOSE), Perservative Free IM 0.5 mL 65 years and older 01/21/2015 Influenza Inactivated/Split Preservative Free IM 01/03/2017 Influenza Virus Trivalent Sp lit Vaccine (MDV) IM 01/11/2024,02/07/2023,01/09/2022,01/24,01/01/2020,01/12/2019,12/25/2018 ,01/15/2018,01/03/2017,01/26/2016 Pneumococcal Conjugate 20-Valent 01/09/2022 Pneumococcal Polysaccharide 23-Valent 01/02/2018 RSV, Recombinant, Protein Kim bunit RSV Prefusion F (AREXVY), Adjuvant Recon 0.5 mL PF 04/06/2023 Tdap 04/15/2019 Zoster Vaccine Live/Attenuat ed (Zostavax) 01/26/2016 Zoster Vaccine Recombinant (Shingrix) 10/01/2020 ,05/28/2020 Family History Medical History Relation Name Comments Cancer, other Father Wilmer Leukemia Leukemia Father Wilmer Diabetes Mother Abraham Relation Name Status Comments Father Wilmer Alive Mother Abraham Alive Social History Tobacco Use Types Packs/Day Years [...] Sign Reading Time Taken Comments Blood Pressure 104/78 12/08/2024 11:27 AM EDT Pulse 82 12/08/2024 11:27 AM EDT Temperature 35.9 C (96.6 F) 10/09/2023 1:22 PM EDT Respiratory Rate 16 10/09/2023 2:47 PM EDT Oxygen Saturation 97% 10/09/2023 3:17 PM EDT Inhaled Oxygen Concentration - - Weight 137 kg (302 lb 12.8 oz) 12/08/2024 11:27 AM EDT Height 188 cm (6' 2 ) 12/08/2024 11:27 AM EDT Body Mass Index 38.88 12/08/2024 11:27 AM EDT Plan of Treatment Upcoming Encounters Date Type Department Care Team (Late st Contact Info) Description 02/04/2025 10:30 AM EST Appointment [facility] [address] [place] [address] Lawanda Dalton MD [address] [place] [address] 02/16/2025 2:20 PM EST Procedure visit [address] [address] Health Maintenance Due Date Last Done Comments Advance Care Planning 1950 Hepatitis C Virus Screening 1950 Influenza Vaccine 10/31/2024 01/11/2024, , 01/09/2022, Additional history exists COVID-19 Vaccine ( season) 2024 04/15/2022, 07/05/2021, 01/24/2021, Additional history exists DTaP/Tdap/Td Vaccines (2 - Td or Tdap) 04/15/2029 04/15/2019 Colonoscopy 01/25/2032 01/24/2022 Zoster (Shingles) Vaccine Completed 2020, 05/28/2020, 01/26/2016 Pneumococcal Vaccines 50+ Completed 01/09/2022, 05/2017 RSV Vaccine 60 years and older and Patients Completed 04/06/2023 Hepatitis B Vaccines Aged Out No long er eligible based on patient's age to complete this topic Insurance [facility] MEDICARE AETNA MGD MEDICARE Care Teams Equity Manager Relationship Specialty Start Date End Date Jaquan Tristan MD [address] [place] [address] PCP - General Family Medicine 05/21/19
--- OUTSIDE RECORDS SUMMARY | 2024-12-17 07:06 | XMS_ITS | Clinical Summary ---
Author Organization [facility] Address [address] [place] [address] Care Team Providers Care Logistics Operations Director Name Role Phone Luisito Jha MD Primary Care Provider [phone] Allergies Active Allergy Reactions Criticality Noted Date [...] Shingrix (RZV) 2 Dose Standard Series) 1999 RSV Immunization (1 - 1-dose 75+ series) 2024 Covid-19 vaccine series ( - season) 2024 Influenza vaccine 12/01/2024 Meningococcal B Vaccine Aged Out No l onger eligible based on patient's age to complete this topic Meningococcal Vaccine Aged Out No tanna kyrie eligible based on patient's age to complete this topic Insurance [facility] MGD Care Teams Logistics Operations Director Relationship Specialty Start Date End Date Luisito Jha MD PCP - General Internal Medicine 12/14/17
--- OUTSIDE RECORDS SUMMARY | 2024-12-17 07:06 | XMS_ITS ---
Author Name [facility] Organization Unknown History of Medication Use Medication Directions Dispensed Refills Start Date End Date Stat us Sodium Sulfate-Mag Sulfate-KCl (Sutab) 8295-783-248 MG Tab Take 12 tablets by mouth once. Take 12 tablets by mouth once. On day prior to colonoscopy, take 12 tablets orally followed by 48 OUNCES OF WATER. Repeat 6 hours prior to your procedure time on day of the colonoscopy. See instructions available for SUTAB (pink) on [facility] website. 12/08/2024 12/10/19 25 active tiZANidine (ZANAFLEX) 4 MG tablet 09/30/2024 active atorvastatin (LIPITOR) 10 MG tablet Take 10 mg by mouth nightly. 08/04/2023 active dexlansoprazole (DEXILANT) 60 MG capsule TAKE 1 CAPSULE BY MOUTH EVERY DAY IN THE MORNING BEFORE BREAKFAST 02/25/2023 04/15/19 25 active linaclotide (LINZESS) 145 MCG Cap capsule Take 1 capsule (145 mcg total) by mouth every morning before breakfast. For constipation 02/12/2023 08/13/19 24 active fluticasone (FloNASE) 50 mcg/spray nasal spray USE 1 PUFF INTO BOTH NOSTRILS TWICE A DAY 12/12/2021 active Eliquis 5 MG tablet TAKE 1 TABLET ORALLY 2 TIMES A DAY FOR 30 DAYS 12/05/2021 active carvedilol (COREG) 3.125 MG tablet TAKE 1 TABLET BY MOUTH TWICE A DAY MUST ADMINISTER WITH A MEAL/FOOD 11/11/2021 active Dexilant 60 MG capsule TAKE 1 CAPSULE BY MOUTH EVERY MORNING BEFORE BREAKFAST. 02/14/2021 02/26/20 23 aborted rifAXIMin (XIFAXAN) 550 MG tablet Take 1 tablet (550 mg total) by mouth every 8 (eight) hours around the clock. 05/21/2019 08/28/19 24 active hydrochlorothiazide (HYDRODIURIL) 50 MG tablet 04/14/2019 active magnesium 30 MG tablet Take 30 mg by mouth 2 (two) times a day. active Allergies Allergen Reaction Severity Comment Documented Date Source Statu s HYDROCODONE-ACETAMI NOPHEN DELIRIUM/CONFUSION/ PSYCHOSIS 04/14/[address] [facility] active MORPHINE RASH/DERMATITIS [facility] Problems Problem Status Onset Date Problem Type Date of Resolution Source Gastroesophageal reflux disease with esophagitis without hemorrhage active EncounterDiagnosisAct [facility] History of colon polyps active EncounterDiagnosisAct [facility] Constipation, unspecified constipation type active EncounterDiagnosisAct [facility] Immunizations Vaccine Date Source Lot Number Status Influenza Virus Trivalent Sp lit Vaccine (MDV) IM 01/11/2024 CCT [id number] completed RSV, Recombinant, Protein Kim bunit RSV Prefusion F (AREXVY), Adjuvant Recon 0.5 mL PF 04/06/2023 CCT 1 [id number] completed Influenza Virus Trivalent Sp lit Vaccine (MDV) IM 02/07/2023 CCT [id number] completed Covid-19 mRNA Bivalent Vacci ne - Moderna 50 mcg/0.5mL 12+ 04/15/[address] [facility] [id number] completed Influenza Virus Trivalent Sp lit Vaccine (MDV) IM 01/09/[address] [facility] [id number] completed Pneumococcal Conjugate 20-Valent 01/09/[address] [facility] [id number] completed Influenza Virus Trivalent Sp lit Vaccine (MDV) IM 01/24/2021 CCT [id number] completed Zoster Vaccine Recombinant (Shingrix) 10/01/[address] [facility] [id number] completed Zoster Vaccine Recombinant (Shingrix) 05/28/[address] [facility] [id number] completed Influenza Virus Trivalent Sp lit Vaccine (MDV) IM 01/01/[address] [facility] [id number] completed Tdap 04/15/[address] [facility] [id number] completed Influenza High-Dose Quadriva lent,(FLUZONE HIGH-DOSE), Perservative Free IM 0.7 mL 65 years and older 01/12/[address] [facility] completed Influenza Virus Trivalent Sp lit Vaccine (MDV) IM 01/12/[address] [facility] [id number] completed Influenza Virus Trivalent Sp lit Vaccine (MDV) IM 12/25/[address] [facility] UNK completed Influenza Virus Trivalent Sp lit Vaccine (MDV) IM 01/15/2018 [facility] [id number] completed Pneumococcal Polysaccharide 23-Valent 01/02/2018 [facility] [id number] completed Influenza Virus Trivalent Sp lit Vaccine (MDV) IM 01/03/2017 [facility] [id number] completed Influenza Virus Trivalent Sp lit Vaccine (MDV) IM 01/26/2016 [facility] [id number] completed Zoster Vaccine Live/Attenuated (Zostavax) 01/26/2016 [facility] [id number] completed Influenza High-Dose Trivalen t,(FLUZONE HIGH-DOSE), Perservative Free IM 0.5 mL 65 years and older 01/21/2015 [facility] [id number] completed Encounters Encounter Type Encounter Reason Primary Diagnosis Location Date Ambulatory Medication Refill Medication Refill [facility] Drip In 12/08/2024 Ambulatory Abdominal distension (gaseous) Abdominal distension (gaseous) [place] 10/09/2023 Ambulatory Follow-up Follow-up [place] 08/13/2023 Ambulatory Abdominal distension (gaseous) Abdominal distension (gaseous) [place] 02/12/2023 Ambulatory Other fecal abnormalities Other fecal abnormalities [place] 11/10/2022 Care Team Organization Name Specialty Phone Email Start Date End Da te [employer] [facility] 12/08/2024 [employer] ANANTH MARIN Primary [facility] 11/10/2022 [employer] [facility] 01/24/2022 022
[2024-12-17 10:08] LABS: Appearance Urine Clear; Glucose Urine UA Negative (Negative); PH 6.0 (5.0-9.0); Specific Gravity - Urine 1.020 (1.005-1.025); UMIC TRIGGER UACC YES
[2024-12-17 10:15] LABS: MANUAL DIFF FLAG NO
[2024-12-17 10:37] LABS: Hematocrit 38.5 % (42.0-52.0); Hemoglobin 12.5 g/dl (14.0-18.0); Imm Gran Abs Auto 0.01 X10*3/uL (0.00-0.03); Imm Gran Pct Auto 0.2 % (0.0-0.4); Lymphocytes Absolute Auto 1.3 X10*3/uL (1.2-4.9); Mean Corpuscular HGB Conc 32.5 g/dl (31.0-36.0); Mean Corpuscular Hemoglobin 32.1 pg (27.0-33.0); Mean Corpuscular Volume 98.7 fL (80.0-98.0); NRBC Abs Auto 0.000 X10*3/uL (0.0-0.012); NRBC Pct Auto 0.0 /100WBC (0.0-0.2); Platelet Count 124 X10*3/uL (160-400); Red Blood Count 3.90 X10*6/uL (4.60-5.80); White Blood Count 4.4 X10*3/uL (4.8-10.8)
[2024-12-17 10:51] LABS: Alanine Aminotransferase 12 U/L (0-40); Albumin Level 4.0 g/dL (3.5-5.0); Alkaline Phosphatase 80 U/L (39-117); Anion Gap 11 (12-20); Aspartate Amino Transferase 25 U/L (5-37); Blood Urea Nitrogen 19 mg/dL (9-16); Calcium 9.2 mg/dL (8.4-10.2); Carbon Dioxide 32 mmol/L (22-29); Chloride 102 mmol/L (96-108); Cholesterol 110 mg/dL (<200); Estimated Glomerular Filt Rate > 60; HDL Cholesterol 45 mg/dL (>40); Potassium 4.6 mmol/L (3.3-5.1); Sodium 140 mmol/L (135-145); Total Protein 7.0 g/dL (6.5-8.0); Triglycerides 57 mg/dL (<150)
== END 2024-12-17 07:04 | disposition home or self-care (01) ==
LOC: HO.HMGCLDS 07:03
PROVIDERS: PCP Nurse Practitioner Family; Visit Provider Nurse Practitioner Family
DX: R73.01 Impaired fasting glucose (principal); D64.9 Anemia, unspecified; E66.01 Morbid (severe) obesity due to excess calories
CPT/HCPCS: 36415; 80053; 80061; 81001; 84443; 85025

== ENCOUNTER 2024-12-31 12:58 | Outpatient (REF) | payer MEDICARE, SELFPAY ==
--- OUTSIDE RECORDS SUMMARY | 2024-12-31 14:17 | XMS_ITS | Encounter Summary ---
Author Organization [facility] Address [address] [place] [address] Care Team Providers Care Solar Site Assessment Specialist Name Role Phone Jaquan Tristan MD Primary Care Provider [phone] Encounter Details Date Type Department Care Team (Late st Contact Info) Description 12/16/2024 Scanned Document [facility] Pulmonary [place] [address] [place] [phone] Lyle Jerome MD [address] [place] [address] Social History Tobacco Use Types Packs/Day Years [...] [facility] [address] [place] [address] Lawanda Dalton MD [address] [place] [address] 02/16/2025 2:20 PM EST Procedure visit [facility] Pulmonary [address] [phone] documented as of this encounter Visit Diagnoses Not on filedocumented in this encounter Care Teams Solar Site Assessment Specialist Relationship Specialty Start Date End Date Jaquan Tristan MD [address] [place] [address] PCP - General Family Medicine 05/21/19 documented as of this encounter
--- OUTSIDE RECORDS SUMMARY | 2024-12-31 14:17 | XMS_ITS | Clinical Summary ---
Author Organization [facility] Address [address] [place] [address] Care Team Providers Care Environmental Technology Professor Name Role Phone Luisito Jha MD Primary Care Provider [phone] Allergies Active Allergy Reactions Criticality Noted Date [...] - 1-dose 75+ series) 2024 Influenza vaccine 10/31/2024 Covid-19 vaccine series ( - season) 2024 Meningococcal B Vaccine Aged Out No l onger eligible based on patient's age to complete this topic Meningococcal Vaccine Aged Out No tanna kyrie eligible based on patient's age to complete this topic Insurance [facility] MGD Care Teams Environmental Technology Professor Relationship Specialty Start Date End Date Luisito Jha MD PCP - General Internal Medicine 12/14/17
--- OUTSIDE RECORDS SUMMARY | 2024-12-31 14:17 | XMS_ITS | Clinical Summary ---
Author Organization [facility] Address [address] [place] [address] Care Team Providers Care Rn Home Care Name Role Phone DamiánJaquan skelton Mata CUNHA Primary Care Provider Surgical History Surgery Date Site/Laterality Comments JOINT [...] UPPER ENDOSCOPY-EGD; Surgeon: Jerry Sanderson MD; Location: [facility]; Service: Gastroenterology; Laterality: N/A; COLONOSCOPY 01/17/2017 N/A PROCEDURE:COLONOSCOPY;COMMENT :Procedure: COLONOSCOPY; Surgeon: Jerry Sanderson MD; Location: [facility]; Service: Gastroenterology; Laterality: N/A; UPPER GASTROINTESTINAL ENDOSCOPY 11/10/2015 N/A PROCEDURE:UPPER GASTROINTESTINAL ENDOSCOPY;COMMENT:Procedure: UPPER ENDOSCOPY-EGD; Surgeon: Jerry Sanderson MD; Location: [facility]; Service: Gastroenterology; Laterality: N/A; TOTAL KNEE ARTHROPLASTY 02/10/2014 Right PROCEDURE:TOTAL KNEE ARTHROPLASTY;COMMENT:Procedur e: REPLACEMENT TOTAL KNEE; Surgeon: Ambrose Olson MD; Location: [facility] Service: Orthopedics; Laterality: Right; CATARACT EXTRACTION W/ INTRAOCULAR LENS IMPLANT Left PROCEDURE:CATARACT EXTRACTION W/ INTRAOCULAR LENS IMPLANT COLONOSCOPY 01/24/2022 N/A PROCEDURE:COLONOSCOPY;COMMENT :Procedure: COLONOSCOPY; Surgeon: Isra Alvarado MD; Location: [facility]; Service: Gastroenterology; [...] Health Maintenance Due Date Last Done Comments Colorectal Cancer Screening: Colonoscopy 1950 Pneumococcal Vaccine: 50+ Years (2 of 2 - PCV) 01/02/2019 01/02/2018 Abdominal Aortic Aneurysm (AAA) Screen 02/28/2022 Falls Risk Assessment 02/28/2022 Hepatitis C [...] age to complete this topic Care Teams Rn Home Care Relationship Specialty Start Date End Date [facility]quan Tristan NP [address] [facility] [place] PCP - General Family Medicine 01/24/22
--- OUTSIDE RECORDS SUMMARY | 2024-12-31 14:17 | XMS_ITS | Encounter Summary ---
Author Organization [facility] Address [address] [place] [address] Care Team Providers Care Studio Receptionist Name Role Phone Gabriela Granados APRN Primary Care Provider + Jaquan Tristan MD Primary Care Provider [phone] Reason for Visit * Reason Comments Medication Refill Encounter Details Date Type Department Care Team (Late st Contact Info) Description 04/14/2019 Refill [facility] [address] [place] [address] Jerry Sanderson MD [address] [facility] [address] [place] [address] Epigastric pain Social History Tobacco Use Types [...] please call and schedule f/u, maybe in [place] like Dr. Olsen suggested * Telephone Encounter - Nereida Sawyer MA - 04/14/2019 2:21 PM EST JUAN 12/15/15, Colonoscopy 01/17/17. Updated allergies from [facility] documented in this encounter Plan of Treatment Upcoming Encounters Date Type Department Care Team (Late st Contact Info) Description 02/04/2025 10:30 AM EST Appointment [facility] [address] [place] [address] Lawanda Dalton MD [address] [place] [address] 02/16/2025 2:20 PM EST Procedure visit [address] [address] documented as of this encounter Visit Diagnoses Diagnosis Epigastric pain Abdominal pain, epigastric documented in this encounter Care Teams Studio Receptionist Relationship Specialty Start Date End Date Gabriela Granados APRN [address] [place] [address] PCP - General Family Medicine 04/14/19 05/20/19 Jaquan Tristan MD [address] [place] [address] PCP - General Family Medicine 05/21/19 documented as of this encounter
--- OUTSIDE RECORDS SUMMARY | 2024-12-31 14:17 | XMS_ITS | Clinical Summary ---
Author Organization [facility] Address [address] [place] [address] Care Team Providers Care Concrete Finisher Apprentice Name Role Phone Jaquan Tristan MD Primary [...] E-Cancel/N o AVS) Sodium Sulfate-Mag Sulfate-KCl (Sutab) 3999-908-153 MG TabIndications:H istory of colon polyps Take 12 tablets by mouth once. Take 12 tablets by mouth once. On day prior to colonoscopy, take 12 tablets orally followed by 48 OUNCES OF WATER. Repeat 6 hours prior to your procedure time on day of the colonoscopy. See instructions available for SUTAB (pink) on [facility] website. 24 tablet 12/09/19 25 025 Active Problems No known active problems Encounters Date Type Department Care Team Description 12/16/2024 Scanned Document [facility] Pulmonary [address] [place] [address] Lyle Jerome MD 12/08/2024 11:30 AM EDT Office Visit [address] [place] [address] Lawanda Dalton MD History of colon polyps (Primary Dx); Gastroesophageal reflux disease with esophagitis without hemorrhage; Constipation, unspecified constipation type 12/04/2024 Transcribe Orders [facility] Pulmonary [place] [address] [place] [address] Lyle Jerome MD MARIE (obstructive sleep apnea) [...] Description 02/04/2025 10:30 AM EST Appointment [facility] [address] [place] [address] Lawanda Dalton MD [address] [place] [address] 02/16/2025 2:20 PM EST Procedure visit [address] [address] Health Maintenance Due Date Last [...] patient's age to complete this topic Insurance [facility] MEDICARE AETNA MGD MEDICARE Care Teams Concrete Finisher Apprentice Relationship Specialty Start Date End Date Jaquan Tristan MD [address] [place] [address] PCP - General Family Medicine 05/21/19
--- OUTSIDE RECORDS SUMMARY | 2024-12-31 14:17 | XMS_ITS | Clinical Summary ---
Author Organization [facility] Address [address] [place] [address] Care Team Providers Care Scientific Software Engineer Name Role Phone Jaquan Tristan Primary Care Provider [phone] Allergies Active Allergy Reactions Criticality Noted Date [...] this topic Medical Devices Implanted Type Area Diesel Engine Engineer Device Identifier Shelf Expiration Date Model / Serial / Lot Samson Weber Vena Cava Filter- 4 Implanted:02/06 by Pilo Zaragoza DO (Quantity not on file) Explanted:(Hood tity not on file) / [id number] P / [id number] Cement Simplex P Radiopaque Full Dose Bone - [id number] - [id number] Implanted:Qty: 2 on 02/10/2014 by Ambrose Olson MD [facility] Right: Knee [employer] 05/13/2016 [id number] / / [id number] Component Triathlon 7 Posterior Stabilized Cemented Femoral - [id number] - [id number] Implanted:Qty: 1 on 02/10/2014 by Ambrose Olson MD at [facility] Right: Knee [employer] 07/11/2018 [id number] / / [id number] Plug Artisan Medium 25mm Plug Bone Cement - [id number] - [id number] Implanted:Qty: 1 on 02/10/2014 by Ambrose Olson MD at [facility] Right: Knee [employer] 02/10/2015 [id number] / / [id number] Stem Triathlon 50mm 15mm Cemented Totl Stabilized Cocr - [id number] - [id number] Implanted:Qty: 1 on 02/10/2014 by Ambrose Olson MD at [facility] Right: Knee [employer] 08/10/2018 [id number] / / [id number] Baseplate Triathlon 7 [place] Totl Stabilized Cemented - [id number] - [id number] Implanted:Qty: 1 on 02/10/2014 by Ambrose Olson MD at [facility] Right: Knee [employer] 05/13/2018 [id number]-700 / / [id number] Component Patella 36mm Trini 10mm Thick Symmetric Triathlon - [id number] - [id number] Implanted:Qty: 1 on 02/10/2014 by Ambrose Olson MD at [facility] Right: Knee [employer] 11/10/2018 [id number]-360 / / [id number] Insert Tibial Articular Posterior Stabilized 11mm Thick Size - [id number] - [id number] Implanted:Qty: 1 on 02/10/2014 by Ambrose Olson MD at [facility] Right: Knee [employer] 02/10/2018 [id number] / / [id number] Advance Directives For more information, please contact: [phone] Documents on File Type Date Recorded 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 Care Teams Scientific Software Engineer Relationship Specialty Start Date End Date Jaquan Tristan: [phone] [address] [facility] [place] [address] PCP - General Family Medicine 01/24/22
[2024-12-31 16:07] LABS: Appearance Urine Clear; Glucose Urine UA Negative (Negative); PH 5.5 (5.0-9.0); Specific Gravity - Urine 1.025 (1.005-1.025)
== END 2024-12-31 12:59 | disposition home or self-care (01) ==
LOC: HO.HMGCLDS 12:58
PROVIDERS: PCP Nurse Practitioner Family; Visit Provider Nurse Practitioner Family
DX: Z12.5 Encounter for screening for malignant neoplasm of prostate (principal); R31.29 Other microscopic hematuria
CPT/HCPCS: 36415; 81003; 84153; 87086; 88112

== ENCOUNTER 2025-01-06 09:45 | Outpatient (AMB) | payer MEDICARE, SELFPAY ==
[2025-01-06 09:54] VITALS: BP 128/76; PULSE 77; O2SAT 98; BMI 38.7
--- NOTE | 2025-01-06 09:54 | MHC.OFFVIS ---
Vital Signs 01/06/25 09:54 Height 6 ft 2 in Weight 301 lb 2 oz BMI 38.7 BP 128/76 Blood Pressure Location Rt brachial Pulse 77 Pulse Source Pulse Oximeter Pulse Oximetry (%) 98 Oxygen Delivery Method Room Air Intake Visit Reasons: INP-Sleep apnea Intake Note: Patient presents [facility] sleep apnea. Establish new care(Old in [place].) Machine is old and dying(Motor life exceeded). [employer] for supplies. Accompanied by: Spouse Allergies hydrocodone (From Vicodin) Allergy (Unknown, Verified 01/06/25 10:02) rash morphine Allergy (Unknown, Verified 01/06/25 10:02) rash HPI Comments Details: 74 year old male is here for a sleep apnea evaluation. His Betsy helps with history. Per Betsy, he snores loudly, gasps for air, has apneas with multiple arousals. He was diagnoses with marie, and has an old machine, the motor life has exceeded , message blinks on his machine daily with a loud purring noise. He is afraid of not having access to his machine as he can not sleep when he does not have his cpap. He denies morning headaches, denies bruxism and jaw pain. His memory is poor at baseline, he forgets why he entered a room. He denies difficulties with word recall and thinks it is a normal process of aging to be forgetful, as this is not concerning to him. He has GERD and pre-mattie's esophagus with flatulence, bloating, he manages with dexlansoprazole 60mg po qam daily along with diet, and lifestyle modifications.He has lost about 20lbs since his last visit, he does not have an appetite anymore and diet is poor. He takes tylenol for back aches and pains, along with magnesium 100mg. He denies symptoms of RLS. He denies mood disorders. [facility] Medical History Spinal stenosis, lumbar region with neurogenic claudication Essential hypertension Persistent atrial fibrillation Sacroiliac inflammation Aneurysm Dislocation of right shoulder joint Shoulder pain with history of repair of rotator cuff IFG (impaired fasting glucose) MARIE on CPAP Vertigo GERD (gastroesophageal reflux disease) PVD (peripheral vascular disease) Disc degeneration Sacroiliitis Cellulitis of multiple sites of buttock Surgical History History of rotator cuff tear History of vitrectomy History of bilateral carpal tunnel release H/O umbilical hernia repair History of bilateral knee replacement History of bilateral hip replacements Family History Father Leukemia Mother No problems noted. Social History Housing: House Alcohol intake: never Patient Tobacco Use Status: Former Tobacco user Years Smoked: 40 years ago e-Cigarette/Vaping Use: Never Used Second Hand Smoke Exposure: No Substance Use Type: Marijuana service: No Current occupational status: retired Cognitive needs: No Hearing needs: No Vision needs: No Physical Exam Vital Signs: Last Vital Signs Pulse 77 01/06/25 09:54 BP 128/76 01/06/25 09:54 Pulse Ox 98 01/06/25 09:54 Oxygen Delivery Method Room Air 01/06/25 09:54 BMI result Body Mass Index 38.7 Const General: cooperative and comfortable Nutritional Appearance: obese centrally obese and overweight Orientation/consciousness: patient oriented x3 HEENT Face and sinus: Yes face symmetric Teeth and gingiva: other (mallmpti score is 4) Eyes Pupils: Equal, round and reactive pupils present Neck Neck: Yes full ROM Resp Effort & Inspection: normal respiratory effort and able to speak in complete sentences Neuro General: patient oriented x3 and moves all extremities Cranial nerves: Yes Equal, round and reactive pupils present, Yes Normal accommodation reflex present, Yes Normal facial strength present, Yes Midline tongue present, Yes Ability to bilaterally rotate head present and Yes Ability to bilaterally elevate shoulders present Cognition (Neuro): normal cognition Gait exam (Neuro): Normal gait present Motor exam (neuro): 5/5 motor strength present throughout and Normal motor muscle tone present throughout Results Reviewed Results Reviewed: labs reviewed with pt. Assessment & Plan Assessment & Plan (1) Excessive daytime sleepiness: Code(s): G47.19 - Other hypersomnia Category: Medical (2) Loud snoring: Code(s): R06.83 - Snoring Category: Medical Plan HST evaluate sleep apnea labs r/o deficiencies anemia etc. Orders: Orders Complete Blood Count no Diff Today G47.19 - Other hypersomnia, R06.83 - Snoring Comprehensive Met. Panel Today G47.19 - Other hypersomnia, R06.83 - Snoring TSH reflex Free T4 Today G47.19 - Other hypersomnia, R06.83 - Snoring RT home sleep study Today G47.19 - Other hypersomnia Ferritin Today G47.19 - Other hypersomnia, R06.83 - Snoring Methylmalonic Acid Today G47.19 - Other hypersomnia, G47.9 - Sleep disorder, unspecified, R06.83 - Snoring, R53.83 - Other fatigue Homocysteine Today G47.19 - Other hypersomnia, G47.9 - Sleep disorder, unspecified, R06.83 - Snoring, R53.83 - Other fatigue Vitamin D 25-OH Total Today G47.19 - Other hypersomnia, R06.83 - Snoring Vitamin B12 and Folate Today G47.19 - Other hypersomnia, R06.83 - Snoring IRON PROFILE Today G47.9 - Sleep disorder, unspecified, R53.83 - Other fatigue Patient Instructions: Sleep Hygiene provided: set a scheduled bedtime and wake time to help regulate the circadian rhythm and balance the release of pituitary hormones. Sleep in a dark room, temperatures below 68 degrees, and no devices n bed. Limit caffeinated products 6 hours prior to bed, and limit fluids 2-4 hours prior to bed. Gentle night yoga, diffusing essential oils, and playing soft music can be relaxing. Coding Level of Care Code New Pt Level 4 (45148) Diagnoses Excessive daytime sleepiness G47.19 Loud snoring R06.83 Sleep Questionnaire Difficulty falling asleep: Yes Difficulty staying asleep?: Yes Number of arousals: 3-4 Snoring: Yes Witnessed apneas: Yes Gasping arousals: Yes Nocturia: Yes GERD: Yes Vivid dreams: No Acting out dreams: No Abnormal behavior in sleep: No Abnormal movements in sleep: No Morning headaches: No Excessive daytime sleepiness: No Daytime naps: No Restless legs: No Hallucinations: No Sleep paralysis: No Drop attacks: No Sleep Study: Yes (>10 years ago) CPAP: Yes
--- OUTSIDE RECORDS SUMMARY | 2025-01-06 11:11 | XMS_ITS | Encounter Summary ---
Author Organization [facility] Address [address] [place] [address] Care Team Providers Care Console Operator Name Role Phone Gabriela Granados APRN Primary Care Provider + Jaquan Tristan MD Primary Care Provider [phone] Reason for Visit * Reason Comments Medication Refill Encounter Details Date Type Department Care Team (Late st Contact Info) Description 04/14/2019 [address]ill [facility] [address] [place] [phone] Jerry Sanderson MD [address] [place] [address] Epigastric pain Social History Tobacco Use Types [...] please call and schedule f/u, maybe in [place] like Dr. Olsen suggested * Telephone Encounter - Nereida Sawyer MA - 04/14/2019 2:21 PM EST JUAN 9/14/16, Colonoscopy 01/17/17. Updated allergies from [facility] documented in this encounter Plan of Treatment Upcoming Encounters Date Type Department Care Team (Late st Contact Info) Description 02/04/2025 10:30 AM EST Appointment [facility] [address] [place] [address] Lawanda Dalton MD [address] [place] [address] 02/16/2025 2:20 PM EST Procedure visit [address] [address] documented as of this encounter Visit Diagnoses Diagnosis Epigastric pain Abdominal pain, epigastric documented in this encounter Care Teams Console Operator Relationship Specialty Start Date End Date Gabriela Granados APRN [address] [place] [address] PCP - General Family Medicine 04/14/19 05/20/19 Jaquan Tristan MD [address] [place] [address] PCP - General Family Medicine 05/21/19 documented as of this encounter
--- OUTSIDE RECORDS SUMMARY | 2025-01-06 11:11 | XMS_ITS | Clinical Summary ---
Author Organization [facility] Address [address] [place] [address] Care Team Providers Care Parts Clerk Name Role Phone Jaquan Tristan Primary Care Provider [phone] Allergies Active Allergy Reactions Criticality Noted Date [...] this topic Medical Devices Implanted Type Area Master Deputy Sheriff Court Security Device Identifier Shelf Expiration Date Model / Serial / Lot Samson Weber Vena Cava Filter- 4 Implanted:02/06 by Pilo Zaragoza DO (Quantity not on file) Explanted:(Hood tity not on file) / IGTCFS-65- 1_JUG-TULI P / [id number] Cement Simplex P Radiopaque Full Dose Bone - [id number] - [id number] Implanted:Qty: 2 on 02/10/2014 by Ambrose Olson MD at [facility] Right: Knee [employer] 05/13/2016 6191-1-010 / / [id number] Component Triathlon 7 Posterior Stabilized Cemented Femoral - [id number] - [id number] Implanted:Qty: 1 on 02/10/2014 by Ambrose Olson MD at [facility] Right: Knee [employer] 07/11/2018 5515-F-702 / / [id number] Plug Artisan Medium 25mm Plug Bone Cement - 647304 - [id number] Implanted:Qty: 1 on 02/10/2014 by Ambrose Olson MD at [facility] Right: Knee [employer] 02/10/2015 6215-5-011 / / [id number] Stem Triathlon 50mm 15mm Cemented Totl Stabilized Cocr - 299027 - [id number] Implanted:Qty: 1 on 02/10/2014 by Ambrose Olson MD at [facility] Right: Knee [employer] 08/10/2018 5560-S-115 / / [id number] Baseplate Triathlon 7 [place] Totl Stabilized Cemented - 253936 - [id number] Implanted:Qty: 1 on 02/10/2014 by Ambrose Olson MD at [facility] Right: Knee [employer] 05/13/2018 5521-B-700 / / [id number] Component Patella 36mm Trini 10mm Thick Symmetric Triathlon - [id number] - [id number] Implanted:Qty: 1 on 02/10/2014 by Ambrose Olson MD at [facility] Right: Knee [employer] 11/10/2018 5550-L-360 / / [id number] Insert Tibial Articular Posterior Stabilized 11mm Thick Size - [id number] - [id number] Implanted:Qty: 1 on 02/10/2014 by Ambrose Olson MD at [facility] Right: Knee [employer] 02/10/2018 5532-P-711 / / [id number] Advance Directives For more information, please contact: [phone] Documents on File Type Date Recorded Patient Software Test Analyst Expl anation Advance Directive and Living Will [...] following way: discussion with patient. Care Teams Parts Clerk Relationship Specialty Start Date End Date Jaquan Tristan: [phone] [address] [facility] [place] [address] PCP - General Family Medicine 01/24/22
--- OUTSIDE RECORDS SUMMARY | 2025-01-06 11:11 | XMS_ITS | Clinical Summary ---
Author Organization [facility] Address [address] [place] [address] Care Team Providers Care Agile Qa Tester Name Role Phone DamiánJaquan skelton Mata CUNHA [...] UPPER ENDOSCOPY-EGD; Surgeon: Jerry Sanderson MD; Location: [facility]; Service: Gastroenterology; Laterality: N/A; COLONOSCOPY 01/17/2017 N/A PROCEDURE:COLONOSCOPY;COMMENT :Procedure: COLONOSCOPY; Surgeon: Jerry Sanderson MD; Location: [facility]; Service: Gastroenterology; Laterality: N/A; UPPER GASTROINTESTINAL ENDOSCOPY 11/10/2015 N/A PROCEDURE:UPPER GASTROINTESTINAL ENDOSCOPY;COMMENT:Procedure: UPPER ENDOSCOPY-EGD; Surgeon: Jerry Sanderson MD; Location: [facility]; Service: Gastroenterology; Laterality: N/A; TOTAL KNEE ARTHROPLASTY 02/10/2014 Right PROCEDURE:TOTAL KNEE ARTHROPLASTY;COMMENT:Procedur e: REPLACEMENT TOTAL KNEE; Surgeon: Ambrose Olson MD; Location: [facility] Service: Orthopedics; Laterality: Right; CATARACT EXTRACTION W/ INTRAOCULAR LENS IMPLANT Left PROCEDURE:CATARACT EXTRACTION W/ INTRAOCULAR LENS IMPLANT COLONOSCOPY 01/24/2022 N/A PROCEDURE:COLONOSCOPY;COMMENT :Procedure: COLONOSCOPY; Surgeon: Isra Alvarado MD; Location: [facility]; Service: Gastroenterology; Laterality: N/A; Medical History [...] age to complete this topic Care Teams Agile Qa Tester Relationship Specialty Start Date End Date Jaquan Tristan NP [address] [facility] [place] PCP - General Family Medicine 01/24/22
--- OUTSIDE RECORDS SUMMARY | 2025-01-06 11:11 | XMS_ITS | Encounter Summary ---
Author Organization [facility] Address [address] [place] [address] Care Team Providers Care Management Expert Name Role Phone Jaquan Tristan MD Primary Care Provider [phone] Encounter Details Date Type Department Care Team (Late st Contact Info) Description 12/16/2024 Scanned Document [facility] [place] [address] [place] [phone] Lyle Jerome MD [address] [place] [address] Social History Tobacco Use Types Packs/Day Years [...] Description 02/04/2025 10:30 AM EST Appointment [facility] [address] [place] [phone] Lawanda Dalton MD [address] [place] [address] 02/16/2025 2:20 PM EST Procedure visit [facility] [address] [phone] documented as of this encounter Visit Diagnoses Not on filedocumented in this encounter Care Teams Management Expert Relationship Specialty Start Date End Date Jaquan Tristan MD [address] [place] [address] PCP - General Family Medicine 05/21/19 documented as of this encounter
--- OUTSIDE RECORDS SUMMARY | 2025-01-06 11:11 | XMS_ITS | Clinical Summary ---
Author Organization [facility] Address [address] [place] [address] Care Team Providers Care Shop Cooper Name Role Phone Jaquan Tristan MD Primary Care Provider Allergies Active Allergy Reactions Criticality Noted Date Comments Morphine Rash/Dermatitis Medium 04/14/2019 Hydrocodone-Acetaminophen Delirium/Confu filipe/Psychosi s High 04/14/2019 Medications hydrochlorothiaz yyaa (HYDRODIURIL) 50 MG tablet every morning. 04/14/19 [...] E-Cancel/N o AVS) Sodium Sulfate-Mag Sulfate-KCl (Sutab) 5082-007-392 MG TabIndications:H istory of colon polyps Take 12 tablets by mouth once. Take 12 tablets by mouth once. On day prior to colonoscopy, take 12 tablets orally followed by 48 OUNCES OF WATER. Repeat 6 hours prior to your procedure time on day of the colonoscopy. See instructions available for SUTAB (pink) on [facility] website. 24 tablet 12/09/19 25 025 Active Problems No known active problems Encounters Date Type Department Care Team Description 12/16/2024 Scanned Document [facility] Pulmonary [address] [place] [address] Lyle Jerome MD 12/08/2024 11:30 AM EDT Office Visit [address] [place] [address] Lawanda Dalton MD History of colon polyps (Primary Dx); Gastroesophageal reflux disease with esophagitis without hemorrhage; Constipation, unspecified constipation type 12/04/2024 Transcribe Orders [facility] [place] [address] [place] [address] Lyle Jerome MD MARIE (obstructive sleep apnea) [...] Description 02/04/2025 10:30 AM EST Appointment [facility] [address] [place] [address] Lawanda Dalton MD [address] [place] [address] 02/16/2025 2:20 PM EST Procedure visit [address] [address] Health Maintenance Due Date Last [...] patient's age to complete this topic Insurance [facility] MEDICARE [employer]ET[employer] MGD MEDICARE Care Teams Shop Cooper Relationship Specialty Start Date End Date Jauqan Tristan MD [address] [place] [address] PCP - General Family Medicine 05/21/19
--- OUTSIDE RECORDS SUMMARY | 2025-01-06 11:11 | XMS_ITS | Clinical Summary ---
Author Organization [facility] Address [address] [place] [address] Care Team Providers Care Hemodialysis Charge Nurse Name Role Phone Luisito Jha MD Primary Care Provider [phone] Allergies Active Allergy Reactions Criticality Noted Date [...] to complete this topic Insurance [facility]EN [facility] BREN [facility] BREN PE[facility] MGD Care Teams Hemodialysis Charge Nurse Relationship Specialty Start Date End Date Luisito Jha MD PCP - General Internal Medicine 12/14/17
== END 2025-01-06 10:59 | disposition home or self-care (01) ==
LOC: HO.HSMS 09:46
PROVIDERS: PCP Nurse Practitioner Family; Visit Provider Physician Assistant Medical
DX: G47.19 Other hypersomnia (principal); R06.83 Snoring
CPT/HCPCS: 99204

== ENCOUNTER → 2025-01-06 09:45 | Outpatient (BNVA) | payer MEDICARE, SELFPAY | PROVIDERS: PCP Nurse Practitioner Family; Visit Provider Physician Assistant Medical | DX: G47.19 Other hypersomnia (principal); G47.33 Obstructive sleep apnea (adult) (pediatric); Z99.89 Dependence on other enabling machines and devices; R06.83 Snoring; Z87.891 Personal history of nicotine dependence; E66.9 Obesity, unspecified; Z68.38 Body mass index [BMI] 38.0-38.9, adult | CPT/HCPCS: 99202 ==

== ENCOUNTER 2025-01-14 11:01 | Outpatient (REF) | payer MEDICARE, SELFPAY ==
[2025-01-14 13:11] LABS: Hematocrit 39.8 % (42.0-52.0); Hemoglobin 12.5 g/dl (14.0-18.0); Mean Corpuscular HGB Conc 31.4 g/dl (31.0-36.0); Mean Corpuscular Hemoglobin 31.2 pg (27.0-33.0); Mean Corpuscular Volume 99.3 fL (80.0-98.0); NRBC Abs Auto 0.000 X10*3/uL (0.0-0.012); NRBC Pct Auto 0.0 /100WBC (0.0-0.2); Platelet Count 147 X10*3/uL (160-400); Red Blood Count 4.01 X10*6/uL (4.60-5.80); White Blood Count 5.4 X10*3/uL (4.8-10.8)
--- OUTSIDE RECORDS SUMMARY | 2025-01-14 13:34 | XMS_ITS | Clinical Summary ---
Author Organization [facility] Address [address] [place] [address] Care Team Providers Care Underwear Trimmer Name Role Phone Jaquan Tristan Primary Care Provider Allergies Active Allergy Reactions [...] this topic Medical Devices Implanted Type Area Property Utilization Officer Device Identifier Shelf Expiration Date Model / Serial / Lot Samson Weber Vena Cava Filter- 4 Implanted:02/06 by Pilo Zaragoza DO (Quantity not on file) Explanted:(Hood tity not on file) / IGTCFS-65- 1_JUG-TULI P / [id number] Cement Simplex P Radiopaque Full Dose Bone - [id number] - [id number] Implanted:Qty: 2 on 02/10/2014 by Ambrose Olson MD at [facility] Right: Knee [employer] 05/13/2016 6191-1-010 / / [id number] Component Triathlon 7 Posterior Stabilized Cemented Femoral - 956996 - [id number] Implanted:Qty: 1 on 02/10/2014 by Ambrose Olson MD at [facility] Right: Knee [employer] 07/11/2018 5515-F-702 / / [id number] Plug Artisan Medium 25mm Plug Bone Cement - 006850 - [id number] Implanted:Qty: 1 on 02/10/2014 by Ambrose Olson MD at [facility] Right: Knee [employer] 02/10/2015 6215-5-011 / / [id number] Stem Triathlon 50mm 15mm Cemented Totl Stabilized Cocr - 136861 - [id number] Implanted:Qty: 1 on 02/10/2014 by Ambrose Olson MD at [facility] Right: Knee [employer] 08/10/2018 5560-S-115 / / [id number] Baseplate Triathlon 7 [place]lan Totl Stabilized Cemented - 175906 - [id number] Implanted:Qty: 1 on 02/10/2014 by Ambrose Olson MD at [facility] Right: Knee [employer] 05/13/2018 5521-B-700 / / [id number] Component Patella 36mm Trini 10mm Thick Symmetric Triathlon - 101621 - [id number] Implanted:Qty: 1 on 02/10/2014 by Ambrose Olson MD at [facility] Right: Knee [employer] 11/10/2018 5550-L-360 / / [id number] Insert Tibial Articular Posterior Stabilized 11mm Thick Size - [id number] - [id number] Implanted:Qty: 1 on 02/10/2014 by Ambrose Olson MD at [facility] Right: Knee [employer] 02/10/2018 5532-P-711 / / [id number] Advance Directives For more information, please contact: [phone] Documents on File Type Date Recorded Patient Bread Distributor Expl anation Advance Directive and Living Will [...] following way: discussion with patient. Care Teams Underwear Trimmer Relationship Specialty Start Date End Date Jaquan Tristan: [phone] [address] [facility] [place] [address] PCP - General Family Medicine 01/24/22
--- OUTSIDE RECORDS SUMMARY | 2025-01-14 13:34 | XMS_ITS | Clinical Summary ---
Author Organization [facility] Address [address] [place] [address] Care Team Providers Care Manufacturing Maintenance Technician Name Role Phone DamiánJaquan skelton Mata CUNHA [...] UPPER ENDOSCOPY-EGD; Surgeon: Jerry Sanderson MD; Location: [facility]; Service: Gastroenterology; Laterality: N/A; COLONOSCOPY 01/17/2017 N/A PROCEDURE:COLONOSCOPY;COMMENT :Procedure: COLONOSCOPY; Surgeon: Jerry Sanderson MD; Location: [facility]; Service: Gastroenterology; Laterality: N/A; UPPER GASTROINTESTINAL ENDOSCOPY 11/10/2015 N/A PROCEDURE:UPPER GASTROINTESTINAL ENDOSCOPY;COMMENT:Procedure: UPPER ENDOSCOPY-EGD; Surgeon: Jerry Sanderson MD; Location: [facility]; Service: Gastroenterology; Laterality: N/A; TOTAL KNEE ARTHROPLASTY 02/10/2014 Right PROCEDURE:TOTAL KNEE ARTHROPLASTY;COMMENT:Procedur e: REPLACEMENT TOTAL KNEE; Surgeon: Ambrose Olson MD; Location: [facility]); Service: Orthopedics; Laterality: Right; CATARACT EXTRACTION W/ INTRAOCULAR LENS IMPLANT Left PROCEDURE:CATARACT EXTRACTION W/ INTRAOCULAR LENS IMPLANT COLONOSCOPY 01/24/2022 N/A PROCEDURE:COLONOSCOPY;COMMENT :Procedure: COLONOSCOPY; Surgeon: Isra Alvarado MD; Location: [facility]; Service: Gastroenterology; Laterality: N/A; Medical History [...] Done Comments Colorectal Cancer Screening: Colonoscopy 1950 [place] Risk Assessment 02/28/2022 Hepatitis C Screening 02/28/2022 Social Influencers of Health Screening 02/28/2022 Cholesterol Screening (Lipid Panel) 03/19/2023 03/19/2018 Depression Screening 04/02/2024 COVID-19 Vaccine ( season) 2024 04/15/2022, 07/05/2021, 01/24/2021, Additional history exists Influenza Vaccine (#1) 2024 4, 02/07/2023, 01/09/2022, Additional history exists DTaP,Tdap,and Td Vaccines (2 - Td or Tdap) 04/15/2029 04/15/2019 Zoster Vaccines Completed 10/01/2020, 05/04, 01/26/2016 Pneumococcal Vaccine: 50+ Years Completed 01/09/2022, 01/02/2018 RSV Immunization Adult Patients Completed 04/06/2023 HIB [...] age to complete this topic Care Teams Manufacturing Maintenance Technician Relationship Specialty Start Date End Date Jaquan Tristan NP [address] [place], [place] PCP - General Family Medicine 01/24/22
--- OUTSIDE RECORDS SUMMARY | 2025-01-14 13:34 | XMS_ITS | Clinical Summary ---
Author Organization [facility] Address [address] [place] [address] Care Team Providers Care Material Control Specialist Name Role Phone Jaquan Tristan MD Primary Care Provider Allergies Active Allergy Reactions Criticality Noted Date Comments Morphine Rash/Dermatitis Medium 04/14/2019 Hydrocodone-Acetaminophen Delirium/Confu filipe/Psychosi s High 04/14/2019 Medications hydrochlorothia zide (HYDRODIURIL) 50 MG tablet every morning. 0 [...] MUST ADMINISTER WITH A MEAL/FOOD 2 Active irbesartan (AVAPRO) 150 MG tablet Take 1 tablet (150 mg total) by mouth every morning. 2 Active atorvastatin (LIPITOR) 10 MG tablet Take 1 tablet (10 mg total) by mouth nightly. 4 Active rifAXIMin (XIFAXAN) 550 MG tabletIndicatio ns:Irritable bowel syndrome with diarrhea Take 1 tablet (550 mg total) by mouth every 8 (eight) hours around the clock. 42 tablet 4 Active dexlansoprazole (DEXILANT) 60 MG capsuleIndicati ons:Gastroesoph ageal reflux disease,Epigast hilton pain TAKE 1 CAPSULE BY MOUTH EVERY DAY IN THE MORNING BEFORE BREAKFAST 90 capsule 3 5 Active tiZANidine (ZANAFLEX) 4 MG tablet 5 Active Active Problems No known active problems Encounters Date Type Department Care Team Description 12/16/2024 Scanned Document [facility] Pulmonary [place] [address] [place] [address] Lyle Jerome MD 12/08/2024 11:30 AM EDT Office Visit [facility] [address] [place] [phone] Lawanda Dalton MD History of colon polyps (Primary Dx); Gastroesophageal reflux disease with esophagitis without hemorrhage; Constipation, unspecified constipation type 12/04/2024 Transcribe Orders [facility] Pulmonary [place] [address] [place] [address] Lyle Jerome MD MARIE (obstructive sleep apnea) [...] Description 02/04/2025 10:30 AM EST Appointment [facility] [address] [place] [phone] Lawanda Dalton MD [address] [place] [phone] 02/16/2025 2:20 PM EST Procedure visit [address] [address] Health Maintenance Due Date Last [...] Vaccines 50+ Completed 01/09/2022, 05/2017 RSV Vaccine 50 years and older and Patients Completed 04/06/2023 Hepatitis B Vaccines Aged Out No long er eligible based on patient's age to complete this topic Insurance BREN Maday MEDICARE BREN Maday MEDICARE Care Teams Material Control Specialist Relationship Specialty Start Date End Date Jaquan Tristan MD [address] [place] [address] PCP - General Family Medicine 05/21/19
--- OUTSIDE RECORDS SUMMARY | 2025-01-14 13:34 | XMS_ITS | Clinical Summary ---
Author Organization [facility] Address [address] [place] [address] Care Team Providers Care Motor Vehicles Inspector Name Role Phone Luisito Jha MD Primary Care Provider [phone] Allergies Active Allergy Reactions Criticality Noted Date [...] to complete this topic Insurance BREN PEGUERO [facility] BREN PEGUERO [facility] BREN PEGUERO [facility] MGD Care Teams Motor Vehicles Inspector Relationship Specialty Start Date End Date Luisito Jha MD PCP - General Internal Medicine 12/14/17
--- OUTSIDE RECORDS SUMMARY | 2025-01-14 13:34 | XMS_ITS | Encounter Summary ---
Author Organization [facility] Address [address] [place] [address] Care Team Providers Care Meat Selector Name Role Phone Jaquan Tristan MD Primary Care Provider [phone] Encounter Details Date Type Department Care Team (Late st Contact Info) Description 12/16/2024 Scanned Document [facility] Pulmonary [place] [address] [place] [phone] Lyle Jerome MD [address] [place] [address] Social History Tobacco Use Types Packs/Day Years [...] Description 02/04/2025 10:30 AM EST Appointment [facility] [address] [place] [phone] Lawanda Dalton MD [address] [place] [address] 02/16/2025 2:20 PM EST Procedure visit [facility] Pulmonary [address] [phone] documented as of this encounter Visit Diagnoses Not on filedocumented in this encounter Care Teams Meat Selector Relationship Specialty Start Date End Date Jaquan Tristan MD [address] [place] [address] PCP - General Family Medicine 05/21/19 documented as of this encounter
--- OUTSIDE RECORDS SUMMARY | 2025-01-14 13:35 | XMS_ITS | Encounter Summary ---
Author Organization [facility] Address [address] [place] [address] Care Team Providers Care Marble Chip Terrazzo Worker Name Role Phone Gabriela Granados APRN Primary Care Provider + Jaquan Tristan MD Primary Care Provider [phone] Reason for Visit * Reason Comments Medication Refill Encounter Details Date Type Department Care Team (Late st Contact Info) Description 04/14/2019 Refill [facility] [address] [place] [phone] Jerry Sanderson MD [address] [place] [address] Epigastric pain Social History Tobacco Use Types [...] please call and schedule f/u, maybe in [place] like Dr. Olsen suggested * Telephone Encounter - Nereida Sawyer MA - 04/14/2019 2:21 PM EST JUAN 9/14/16, Colonoscopy 01/17/17. Updated allergies from [facility] documented in this encounter Plan of Treatment Upcoming Encounters Date Type Department Care Team (Late st Contact Info) Description 02/04/2025 10:30 AM EST Appointment [facility] [address] [place] [address] Lawanda Dalton MD [address] [place] [address] 02/16/2025 2:20 PM EST Procedure visit [address] [address] documented as of this encounter Visit Diagnoses Diagnosis Epigastric pain Abdominal pain, epigastric documented in this encounter Care Teams Marble Chip Terrazzo Worker Relationship Specialty Start Date End Date aGbriela Granados APRN [address] [place] [address] PCP - General Family Medicine 04/14/19 05/20/19 Jaquan Tristan MD [address] [place] [address] PCP - General Family Medicine 05/21/19 documented as of this encounter
[2025-01-14 14:25] LABS: Alanine Aminotransferase 16 U/L (0-40); Albumin Level 4.0 g/dL (3.5-5.0); Alkaline Phosphatase 78 U/L (39-117); Anion Gap 9 (12-20); Aspartate Amino Transferase 21 U/L (5-37); Blood Urea Nitrogen 17 mg/dL (9-16); Calcium 9.3 mg/dL (8.4-10.2); Carbon Dioxide 32 mmol/L (22-29); Chloride 106 mmol/L (96-108); Estimated Glomerular Filt Rate > 60; Ferritin 168 ng/mL (20-250); Iron 70 mcg/dL (45-160); Percent Iron Saturation 30 % (15-50); Potassium 4.5 mmol/L (3.3-5.1); Sodium 142 mmol/L (135-145); Total Iron Binding Capacity 234 mcg/dL (228-428); Total Protein 7.0 g/dL (6.5-8.0); Unsaturated Iron Binding 164 ug/dL
[2025-01-14 14:37] LABS: Folate 6.7 ng/mL (> or = 4.0); Vitamin B12 344 pg/mL (200-900)
== END 2025-01-14 11:02 | disposition home or self-care (01) ==
LOC: HO.HMGCLDS 11:01
PROVIDERS: Absent Provider Physician Assistant Medical; PCP Nurse Practitioner Family; Visit Provider Nurse Practitioner Family
DX: G47.19 Other hypersomnia (principal); R53.83 Other fatigue; Z13.0 Encounter for screening for diseases of the blood and blood-forming organs and certain disorders involving the immune mechanism
CPT/HCPCS: 36415; 80053; 82306; 82607; 82728; 82746; 83540; 84443; 85027

== ENCOUNTER 2025-01-15 09:10 | Outpatient (REF) | payer MEDICARE, SELFPAY ==
--- OUTSIDE RECORDS SUMMARY | 2025-01-15 10:18 | XMS_ITS | Clinical Summary ---
Author Organization [facility] Address [address] [place] [address] Care Team Providers Care Waste Management Engineer Name Role Phone Jaquan Tristan MD Primary Care Provider [phone] Allergies Active Allergy Reactions Criticality Noted Date [...] Department Care Team Description 12/16/2024 Scanned Document [facility] Pulmonary [place] [address] [place] [address] Lyle Jerome MD 12/08/2024 11:30 AM EDT Office Visit [facility] [address] [facility] [address] [place] [phone] Lawanda Dalton MD History of colon polyps (Primary Dx); Gastroesophageal reflux disease with esophagitis without hemorrhage; Constipation, unspecified constipation type 12/04/2024 Transcribe Orders [facility] Pulmonary [place] [address] [place] [address] Lyle Jerome MD MARIE (obstructive sleep apnea) [...] Description 02/04/2025 10:30 AM EST Appointment [facility] [address] [place] [phone] Lawanda Dalton MD [address] [place] [phone] 02/16/2025 2:20 PM EST Procedure visit [address] [address] Health Maintenance Due Date Last [...] Maday MEDICARE BREN Maday MEDICARE Care Teams Waste Management Engineer Relationship Specialty Start Date End Date Jaquan Tristan MD [address] [place] [address] PCP - General Family Medicine 05/21/19
--- OUTSIDE RECORDS SUMMARY | 2025-01-15 10:18 | XMS_ITS | Clinical Summary ---
Author Organization [facility] 1 [facility] Address [address] [place] [address] Care Team Providers Care Development Administrator Name Role Phone Luisito Jha MD Primary Care Provider [phone] Allergies Active Allergy Reactions Criticality Noted Date [...] to complete this topic Insurance BREN PEGUERO [facility] BREN PEGUERO [facility] BREN PEGUERO [facility] MGD Care Teams Development Administrator Relationship Specialty Start Date End Date Luisito Jha MD PCP - General Internal Medicine 12/14/17
--- OUTSIDE RECORDS SUMMARY | 2025-01-15 10:19 | XMS_ITS | Encounter Summary ---
Author Organization [facility] Address [address] [place] [address] Care Team Providers Care Cold Mill Inspector Name Role Phone Jaquan Tristan MD Primary Care Provider [phone] Encounter Details Date Type Department Care Team (Late st Contact Info) Description 12/16/2024 Scanned Document [facility] Pulmonary [place] [address] [place] [phone] Lyle Jerome MD [address] [place] [address] Social History Tobacco Use Types Packs/Day Years [...] Description 02/04/2025 10:30 AM EST Appointment [facility] [address] [place] [phone] Lawanda Dalton MD [address] [place] [address] 02/16/2025 2:20 PM EST Procedure visit [facility] Pulmonary [address] [phone] documented as of this encounter Visit Diagnoses Not on filedocumented in this encounter Care Teams Cold Mill Inspector Relationship Specialty Start Date End Date Jaquan Tristan MD [address] [place] [address] PCP - General Family Medicine 05/21/19 documented as of this encounter
--- OUTSIDE RECORDS SUMMARY | 2025-01-15 10:19 | XMS_ITS | Clinical Summary ---
Author Organization [facility] Address [address] [place] [address] Care Team Providers Care Retail Link Analyst Name Role Phone DamiánJaquan skelton Mata CUNHA [...] UPPER ENDOSCOPY-EGD; Surgeon: Jerry Sanderson MD; Location: [facility] END[facility]; Service: Gastroenterology; Laterality: N/A; COLONOSCOPY 01/17/2017 N/A PROCEDURE:COLONOSCOPY;COMMENT :Procedure: COLONOSCOPY; Surgeon: Jerry Sanderson MD; Location: [facility] ENDOSCOPY; Service: Gastroenterology; Laterality: N/A; UPPER GASTROINTESTINAL ENDOSCOPY 11/10/2015 N/A PROCEDURE:UPPER GASTROINTESTINAL ENDOSCOPY;COMMENT:Procedure: UPPER ENDOSCOPY-EGD; Surgeon: Jerry Sanderson MD; Location: [facility] ENDOSCOPY; Service: Gastroenterology; Laterality: N/A; TOTAL KNEE ARTHROPLASTY 02/10/2014 Right PROCEDURE:TOTAL KNEE ARTHROPLASTY;COMMENT:Procedur e: REPLACEMENT TOTAL KNEE; Surgeon: Ambrose Olson MD; Location: [facility] Service: Orthopedics; Laterality: Right; CATARACT EXTRACTION W/ INTRAOCULAR LENS IMPLANT Left PROCEDURE:CATARACT EXTRACTION W/ INTRAOCULAR LENS IMPLANT COLONOSCOPY 01/24/2022 N/A PROCEDURE:COLONOSCOPY;COMMENT :Procedure: COLONOSCOPY; Surgeon: Isra Alvarado MD; Location: [facility] ENDOSCOPY; Service: Gastroenterology; Laterality: N/A; Medical History [...] age to complete this topic Care Teams Retail Link Analyst Relationship Specialty Start Date End Date Jaquan Tristan NP [address] [place], [place] PCP - General Family Medicine 01/24/22
--- OUTSIDE RECORDS SUMMARY | 2025-01-15 10:19 | XMS_ITS | Clinical Summary ---
Author Organization [facility] Address [address] [place] [address] Care Team Providers Care Service Station Manager Name Role Phone Jaquan Tristan Primary Care Provider [phone] Allergies Active Allergy Reactions Criticality Noted Date [...] this topic Medical Devices Implanted Type Area Coal Getter Device Identifier Shelf Expiration Date Model / Serial / Lot Samson Weber Vena Cava Filter- 4 Implanted:02/06 by Pilo Zaragoza DO (Quantity not on file) Explanted:(Hood tity not on file) / IGTCFS-65- 1_JUG-TULI P / [id number] Cement Simplex P Radiopaque Full Dose Bone - 674742 - [id number] Implanted:Qty: 2 on 02/10/2014 by Ambrose Olson MD at [facility] Right: Knee [employer] [facility] 05/13/2016 6191-1-010 / / [id number] Component Triathlon 7 Posterior Stabilized Cemented Femoral - 505417 - [id number] Implanted:Qty: 1 on 02/10/2014 by Ambrose Olson MD at [facility] Right: Knee [employer] 07/11/2018 5515-F-702 / / [id number] Plug Artisan Medium 25mm Plug Bone Cement - 936145 - [id number] Implanted:Qty: 1 on 02/10/2014 by Ambrose Olson MD at [facility] Right: Knee [employer] 02/10/2015 6215-5-011 / / [id number] Stem Triathlon 50mm 15mm Cemented Totl Stabilized Cocr - 570856 - [id number] Implanted:Qty: 1 on 02/10/2014 by Ambrose Olson MD at [facility] Right: Knee [employer] [facility] 08/10/2018 5560-S-115 / / [id number] Baseplate Triathlon 7 [place] Totl Stabilized Cemented - 786551 - [id number] Implanted:Qty: 1 on 02/10/2014 by Ambrose Olson MD at [facility] Right: Knee [employer] 05/13/2018 5521-B-700 / / [id number] Component Patella 36mm Trini 10mm Thick Symmetric Triathlon - 298756 - [id number] Implanted:Qty: 1 on 02/10/2014 by Ambrose Olson MD at [facility] Right: Knee [employer] [facility] 11/10/2018 5550-L-360 / / [id number] Insert Tibial Articular Posterior Stabilized 11mm Thick Size - 676938 - [id number] Implanted:Qty: 1 on 02/10/2014 by Ambrose Olson MD at [facility] Right: Knee [facility] 02/10/2018 5532-P-711 / / [id number] Advance Directives For more information, please contact: [phone] Documents on File Type Date Recorded Patient Senior Account Clerk Expl anation Advance Directive and Living Will [...] following way: discussion with patient. Care Teams Service Station Manager Relationship Specialty Start Date End Date Jaquan Tristan: [phone] [address] [facility] [place] [address] PCP - General Family Medicine 01/24/22
--- OUTSIDE RECORDS SUMMARY | 2025-01-15 10:19 | XMS_ITS | Encounter Summary ---
Author Organization [facility] Address [address] [place] [address] Care Team Providers Care Wardrobe Coordinator Name Role Phone Gabriela Granados APRN Primary Care Provider + Jaquan Tristan MD Primary Care Provider [phone] Reason for Visit * Reason Comments Medication Refill Encounter Details Date Type Department Care Team (Late st Contact Info) Description 04/14/2019 [address] [facility] [address] [place] [phone] Jerry Sanderson MD [address] [place] [address] Epigastric pain Social History Tobacco Use Types [...] please call and schedule f/u, maybe in [place] like Dr. Olsen suggested * Telephone Encounter - Nereida Sawyer MA - 04/14/2019 2:21 PM EST JUAN 9/14/16, Colonoscopy 01/17/17. Updated allergies from [facility] documented in this encounter Plan of Treatment Upcoming Encounters Date Type Department Care Team (Late st Contact Info) Description 02/04/2025 10:30 AM EST Appointment [facility] [address] [place] [address] Lawanda Dalton MD [address] [place] [address] 02/16/2025 2:20 PM EST Procedure visit [address] [address] documented as of this encounter Visit Diagnoses Diagnosis Epigastric pain Abdominal pain, epigastric documented in this encounter Care Teams Wardrobe Coordinator Relationship Specialty Start Date End Date Gabriela Granados APRN [address] [place] [address] PCP - General Family Medicine 04/14/19 05/20/19 Jaquan Tristan MD [address] [place] [address] PCP - General Family Medicine 05/21/19 documented as of this encounter
== END 2025-01-15 09:11 | disposition home or self-care (01) ==
LOC: HO.LAB 09:10
PROVIDERS: PCP Nurse Practitioner Family; Visit Provider Physician Assistant Medical
DX: R53.83 Other fatigue (principal); G47.19 Other hypersomnia; Z13.6 Encounter for screening for cardiovascular disorders
CPT/HCPCS: 36415; 83090; 83921

== ENCOUNTER 2025-01-27 14:24 | Outpatient (REF) | payer MEDICARE, SELFPAY ==
--- NOTE | ~2025-01-27 | CT_ITS ---
EXAMINATION: CT ABDOMEN AND PELVIS WITHOUT AND WITH CONTRAST CLINICAL INFORMATION: R 31.29. Microscopic hematuria.. COMPARISON: July 20, 2020 TECHNIQUE: Noncontrast CT of the abdomen and pelvis is performed followed by split bolus contrast-enhanced images using 85 mL Omnipaque 350 contrast without reported immediate complications. Postcontrast imaging is performed during the combined nephrogram and excretion phase. Sagittal and coronal reformatted images were obtained on the technologist's workstation for both the precontrast and postcontrast phases. This CT examination was performed using dose optimization techniques as appropriate, variously including the following: *Automated exposure control *Adjustment of mA and/or kV according to patient size (this includes techniques or standardized protocols for targeted exams where dose is matched to indication/reason for exam; i.e. extremities or head) *Use of iterative reconstruction technique. DLP: 1425 mGy-cm FINDINGS: LUNG BASES: Inadequate evaluation. LIVER, GALLBLADDER, AND BILIARY TREE: Liver measures 16 cm. Gallbladder is fluid-filled nondistended without pericholecystic fluid collection or gallbladder wall thickening. No intrahepatic or extrahepatic biliary ductal dilatation. PANCREAS: No enhancing mass. No peripancreatic fluid collection. No main pancreatic ductal dilatation. SPLEEN: 11 cm. No gross solid or cystic lesion. ADRENAL GLANDS: No nodular lesions. KIDNEYS AND URETERS: Right kidney: No hydronephrosis. No nephrolithiasis. Normal enhancement pattern of the renal parenchyma. Normal urinary excretion into the collecting system. No dilatation of the ureter. Left kidney: No hydronephrosis. No nephrolithiasis. Normal enhancement pattern of the renal parenchyma. Normal urinary excretion into the collecting system. No dilatation of the ureter. BLADDER: Fluid-filled nondistended. GASTROINTESTINAL TRACT: Abundant stool throughout the large intestine. Terminal ileum is normal. I do not see the appendix, though no pericecal edema pattern. No intestinal obstruction pattern. No pneumatosis intestinalis. No ascites. No pneumoperitoneum. Inadequate evaluation of the pelvis secondary metallic beam hardening artifact secondary to bilateral hip prosthesis. ABDOMINAL WALL: Status post abdominal wall mesh, periumbilical and right upper quadrant/epigastric. LYMPH NODES: No specific prominent mesenteric and retroperitoneal. VASCULAR: Calcified plaques in the coronary arteries, aorta, the origin of the mesenteric arteries the main renal arteries, splenic artery and iliac arteries as well as the femoral arteries. No aneurysm or dissection, abdominal aorta. PELVIC VISCERA: No gross enlarged lesion. OSSEUS STRUCTURES: Status post bilateral hip arthroplasty prosthesis. 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 Grade 1 retrolisthesis L1 to and L2-3 posterior tibial [address]/CT urogram IMPRESSION: No hydronephrosis or nephrolithiasis or gross renal mass. Electronically signed by: Javon Cavanaugh MD 01/27/2025 03:20 PM EDT
[2025-01-27] MEDS: iohexoL 350 MG/ML 100 ML INFUS..BTL 85 ML IV (15:03)
--- OUTSIDE RECORDS SUMMARY | 2025-01-27 18:43 | XMS_ITS | Clinical Summary ---
Author Organization [facility] Address [address] [place] [address] Care Team Providers Care Respiratory Practitioner Name Role Phone Jaquan Tristan Primary Care Provider [phone] Allergies Active Allergy Reactions Criticality Noted Date [...] this topic Medical Devices Implanted Type Area Pack Mule Worker Device Identifier Shelf Expiration Date Model / Serial / Lot Samson Weber Vena Cava Filter- 4 Implanted:02/06 by Pilo Zaragoza DO (Quantity not on file) Explanted:(Hood tity not on file) / IGTCFS-65- 1_JUG-TULI P / [id number] Cement Simplex P Radiopaque Full Dose Bone - 842771 - [id number] Implanted:Qty: 2 on 02/10/2014 by Ambrose Olson MD at [facility] Right: Knee [facility] 05/13/2016 6191-1-010 / / [id number] Component Triathlon 7 Posterior Stabilized Cemented Femoral - 272434 - [id number] Implanted:Qty: 1 on 02/10/2014 by Ambrose Olson MD at [facility] Right: Knee [facility] 07/11/2018 5515-F-702 / / [id number] Plug Artisan Medium 25mm Plug Bone Cement - 200771 - [id number] Implanted:Qty: 1 on 02/10/2014 by Ambrose Olson MD at [facility] Right: Knee [facility] 02/10/2015 6215-5-011 / / [id number] Stem Triathlon 50mm 15mm Cemented Totl Stabilized Cocr - 905684 - [id number] Implanted:Qty: 1 on 02/10/2014 by Ambrose Olson MD at [facility] Right: Knee [facility] 08/10/2018 5560-S-115 / / [id number] Baseplate Triathlon 7 [place] Totl Stabilized Cemented - 805504 - [id number] Implanted:Qty: 1 on 02/10/2014 by Ambrose Olson MD at [facility] Right: Knee [employer] 05/13/2018 5521-B-700 / / [id number] Component Patella 36mm Trini 10mm Thick Symmetric Triathlon - 347149 - [id number] Implanted:Qty: 1 on 02/10/2014 by Ambrose Olson MD at [facility] Right: Knee [facility] 11/10/2018 5550-L-360 / / [id number] Insert Tibial Articular Posterior Stabilized 11mm Thick Size - 588323 - [id number] Implanted:Qty: 1 on 02/10/2014 by Ambrose Olson MD at [facility] Right: Knee [facility] 02/10/2018 5532-P-711 / / [id number] Advance Directives For more information, please contact: [phone] Documents on File Type Date Recorded Patient Picker / Packer Expl anation Advance Directive and Living Will [...] following way: discussion with patient. Care Teams Respiratory Practitioner Relationship Specialty Start Date End Date Jaquan Tristan: [phone] [address] [facility] [place] [address] PCP - General Family Medicine 01/24/22
--- OUTSIDE RECORDS SUMMARY | 2025-01-27 18:43 | XMS_ITS | Clinical Summary ---
Author Organization [facility] 1 [facility] Address [address] [place] [address] Care Team Providers Care Antenna Rigger Name Role Phone Luisito Jha MD Primary Care Provider [phone] Allergies Active Allergy Reactions Criticality Noted Date [...] vaccine 10/31/2024 Covid-19 vaccine series ( - 2024- season) 2024 Meningococcal B Vaccine Aged Out No l onger eligible based on patient's age to complete this topic Meningococcal Vaccine Aged Out No tanna kyrie eligible based on patient's age to complete this topic Insurance [facility] PE[facility]ERO [facility] BREN PE[facility] BREN PEGUERO [facility] MGD Care Teams Antenna Rigger Relationship Specialty Start Date End Date Luisito Jha MD PCP - General Internal Medicine 12/14/17
--- OUTSIDE RECORDS SUMMARY | 2025-01-27 18:43 | XMS_ITS | Clinical Summary ---
Author Organization [email or web address] Address [address] [place] [address] Care Team Providers Care Home Office Claims Examiner Name Role Phone DamiánJaquan skelton Mata CUNHA Primary Care Provider [phone] Surgical History Surgery Date Site/Laterality Comments JOINT [...] UPPER ENDOSCOPY-EGD; Surgeon: Jerry Sanderson MD; Location: [facility] ENDOSCOPY; Service: Gastroenterology; Laterality: N/A; COLONOSCOPY 01/17/2017 N/A PROCEDURE:COLONOSCOPY;COMMENT :Procedure: COLONOSCOPY; Surgeon: Jerry Sanderson MD; Location: [facility] END[facility]; Service: Gastroenterology; Laterality: N/A; UPPER GASTROINTESTINAL ENDOSCOPY 11/10/2015 N/A PROCEDURE:UPPER GASTROINTESTINAL ENDOSCOPY;COMMENT:Procedure: UPPER ENDOSCOPY-EGD; Surgeon: Jerry Sanderson MD; Location: [facility] END[facility]COPY; Service: Gastroenterology; Laterality: N/A; TOTAL KNEE ARTHROPLASTY 02/10/2014 Right PROCEDURE:TOTAL KNEE ARTHROPLASTY;COMMENT:Procedur e: REPLACEMENT TOTAL KNEE; Surgeon: Ambrose Olson MD; Location: [facility]); Service: Orthopedics; Laterality: Right; CATARACT EXTRACTION W/ INTRAOCULAR LENS IMPLANT Left PROCEDURE:CATARACT EXTRACTION W/ INTRAOCULAR LENS IMPLANT COLONOSCOPY 01/24/2022 N/A PROCEDURE:COLONOSCOPY;COMMENT :Procedure: COLONOSCOPY; Surgeon: Isra Alvarado MD; Location: [facility] END[facility]; Service: Gastroenterology; Laterality: N/A; Medical History [...] age to complete this topic Care Teams Home Office Claims Examiner Relationship Specialty Start Date End Date Jaquan Tristan NP [address] [place], [place] PCP - General Family Medicine 01/24/22
--- OUTSIDE RECORDS SUMMARY | 2025-01-27 18:43 | XMS_ITS | Encounter Summary ---
Author Organization [facility] Address [address] [place] [address] Care Team Providers Care Channel Installer Name Role Phone Jaquan Tristan MD Primary Care Provider [phone] Encounter Details Date Type Department Care Team (Late st Contact Info) Description 12/16/2024 Scanned Document [facility] Pulmonary [place] [address] [place] [phone] Lyle Jerome MD [address] [place] [address] Social History Tobacco Use Types Packs/Day Years [...] Description 02/04/2025 10:30 AM EST Appointment [facility] [address] [place] [phone] Lawanda Dalton MD [address] [place] [address] 02/16/2025 2:20 PM EST Procedure visit [facility] Pulmonary [address] [phone] documented as of this encounter Visit Diagnoses Not on filedocumented in this encounter Care Teams Channel Installer Relationship Specialty Start Date End Date Jaquan Tristan MD [address] [place] [address] PCP - General Family Medicine 05/21/19 documented as of this encounter
--- OUTSIDE RECORDS SUMMARY | 2025-01-27 18:43 | XMS_ITS | Clinical Summary ---
Author Organization [facility] Address [address] [place] [address] Care Team Providers Care Client Professional Name Role Phone Jaquan Tristan MD Primary [...] Department Care Team Description 12/16/2024 Scanned Document [facility] [place] [address] [facility] [address] [place] [address] Lyle Jerome MD 12/08/2024 11:30 AM EDT Office Visit [facility] [address] [facility] [facility] [place] [phone] Lawanda Dalton MD History of colon polyps (Primary Dx); Gastroesophageal reflux disease with esophagitis without hemorrhage; Constipation, unspecified constipation type 12/04/2024 Transcribe Orders [facility] [place] [address] [place] [address] Lyle Jerome MD MARIE (obstructive sleep apnea) [...] 02/04/2025 10:30 AM EST Appointment [facility] [address] [place] [phone] Lawanda Dalton MD [address] [place] [phone] 02/16/2025 2:20 PM EST Procedure visit [address] [address] Health Maintenance Due Date Last [...] Maday MEDICARE BREN Maday MEDICARE Care Teams Client Professional Relationship Specialty Start Date End Date Jaquan Tristan MD [address] [place] [address] PCP - General Family Medicine 05/21/19
--- OUTSIDE RECORDS SUMMARY | 2025-01-27 18:43 | XMS_ITS | Encounter Summary ---
Author Organization [facility] Address [address] [place] [address] Care Team Providers Care Dual Rate Supervisor Name Role Phone Gabriela Granados APRN Primary Care Provider + Jaquan Tristan MD Primary Care Provider [phone] Reason for Visit * Reason Comments Medication Refill Encounter Details Date Type Department Care Team (Late st Contact Info) Description 04/14/2019 Refill [facility] [address] [place] [phone] Jerry Sanderson MD [address] [place] [address] Epigastric pain Social History Tobacco Use Types [...] please call and schedule f/u, maybe in [place] like Dr. Olsen suggested * Telephone Encounter - Nereida Sawyer MA - 04/14/2019 2:21 PM EST JUAN 9/14/16, Colonoscopy 01/17/17. Updated allergies from [facility] documented in this encounter Plan of Treatment Upcoming Encounters Date Type Department Care Team (Late st Contact Info) Description 02/04/2025 10:30 AM EST Appointment [facility] [address] [place] [address] Lawanda Dalton MD [address] [place] [address] 02/16/2025 2:20 PM EST Procedure visit [address] [address] documented as of this encounter Visit Diagnoses Diagnosis Epigastric pain Abdominal pain, epigastric documented in this encounter Care Teams Dual Rate Supervisor Relationship Specialty Start Date End Date Gabriela Granados APRN [address] [place] [address] PCP - General Family Medicine 04/14/19 05/20/19 Jaquan Tristan MD [address] [place] [address] PCP - General Family Medicine 05/21/19 documented as of this encounter
== END 2025-01-27 14:25 | disposition home or self-care (01) ==
LOC: HO.CT 14:24
PROVIDERS: PCP Nurse Practitioner Family; Visit Provider Nurse Practitioner Family
DX: R31.29 Other microscopic hematuria (principal)
CPT/HCPCS: 74178; Q9967

== ENCOUNTER → 2025-01-27 14:26 | Outpatient (BNV) | payer MEDICARE, SELFPAY | PROVIDERS: PCP Nurse Practitioner Family; Visit Provider Radiology Diagnostic Radiology | DX: R31.29 Other microscopic hematuria (principal) | CPT/HCPCS: 74178 ==

== ENCOUNTER → 2025-02-09 08:35 | Outpatient (REF) | payer MEDICARE, SELFPAY ==
--- NOTE | 2025-02-09 08:40 | CA_ITS ---
Transthoracic Echocardiogram Patient (Last, First, Middle): Thomas Griffith E Gender: M Date of : 1950 Age: 74 Procedure Date: 02/09/2025 Procedure Type: Transthoracic Echocardiogram Location: OP Height: 187.96 cm Weight: 131.09 kg BSA: 2.54 m2 Heart Rate: bpm BP: 128 / 70 mmHg Second Butler: Referring MD: Darryl Henderson MD Care Provider: Dudley Jamison MD Symptoms: I48.19 - Other persistent atrial fibrillation Study Quality: Good ECG Rhythm: Atrial Fibrillation Conclusions: - 1. Normal LV ejection fraction at 60% with moderately increased LV wall thickness 2. Mild biatrial enlargement 3. Trivial aortic regurgitation 4. Upper limits of normal RV systolic pressure with mildly elevated right atrial pressures 5. Mildly dilated ascending aorta 6. No gross pericardial effusion Findings Left Ventricle Normal left ventricular size and systolic function. There is moderately increased left ventricular wall thickness. The visually estimated ejection fraction is between 55-60%. Diastolic function is indeterminate on the basis of available data. Right Ventricle Normal right ventricular cavity size and systolic function. Atria The left atrium is mildly dilated. There is no evidence of interatrial shunt. The right atrium is mildly dilated. Aortic Valve There is mild calcification of the aortic valve. There is no aortic valve stenosis. There is trace (trivial) aortic valve regurgitation. Mitral Valve There is mild anterior and posterior mitral leaflet thickening. There is mild mitral annular calcification. There is trace mitral valve regurgitation. There is no mitral valve stenosis. Pulmonic Valve The pulmonic valve was not well visualized. Tricuspid Valve Likely normal tricuspid valve structure and function. There is mild tricuspid valve regurgitation. The right ventricular systolic pressure is 39 mmHg. Normal right atrial pressure. There is no evidence of pulmonary hypertension. Great Vessels The pulmonary artery was not well visualized. There is mild dilatation of the ascending aorta measuring 4.00 cm. Small plaque is seen in the sino tubular ridge. Venous The inferior vena cava is normal in size and collapses greater than 50% with inspiration. Pericardium/Pleural There is no evidence of pericardial effusion. Prior Study Comparison No significant change compared to prior study dated: 02/05/2023. Measurements 2D Linear Measurements IVSd: 1.43 0.6-0.9/0.6-1.0 cm LVIDd: 4.53 3.9-5.3/4.2-5.9 cm LVIDd Index: 1.78 2.4-3.2/2.2-3.1 cm/m2 LVIDs: 3.05 2.0-3.6 cm LVPWd: 1.35 0.7-1.1 cm Ao Root: 3.60 2.1-3.5 cm LA Diam: 4.10 2.7-3.8/3.0-4.0 cm LAIDs Index: 1.61 1.5-2.3 cm/m2 LV Mass: 309.56 67-162/88-224 g LV Mass Index: 121.88 43-95/49-115 g/m2 LVOT Diam: 2.20 3.0+(-)1.3 cm 2D Systolic Function EF 4C: 51.90 >55% EF 2C: 59.80 >55% EF BiP: 55.90 >55% Mitral Valve MV VTI: 0.33 MV Pk Edinson: 1.28 MV Mn Edinson: 0.66 MV Pk Grad: 7.00 MV Mn Grad: 2.00 MV Pk E: 1.27 MV Decel Time: 158.00 E'Lateral: 9.14 E'Medial: 4.35 E/E' Med: 29.20 E/E' Lat: 13.90 PHT: 46.00 MVA PHT: 4.78 MVA Continuity: 2.50 Decel Weston: 8.02 Aortic Valve AoV Pk Edinson: 1.84 AoV Mn Edinson: 1.17 AoV VTI: 0.46 AoV Pk Grad: 14.00 Aov Mn Grad: 7.00 ROSE Cont.VTI: 1.78 LVOT LVOT Pk Edinson: 0.87 LVOT Mn Edinson: 0.59 LVOT VTI: 0.22 LVOT Pk Grad: 3.00 LVOT Mn Grad: 2.00 LVOT Diam: 2.20 LVOT Area: 3.80 Diastolic Function MV Pk E: 1.27 E'Medial: 4.35 E/E' Med: 29.20 E' Laterial: 9.14 E/E' Lat: 13.90 Right Ventricle TAPSE (mm): 23.00 TVS' Edinson: 12.00 Tricuspid Valve TR Pk Edinson: 2.78 TR Pk Grad: 31.00 RA Press: 8.00 RVSP: 39.00 Great Vessels Aorta Ao Root-2D: 3.60 2.0-3.7 cm Ao Asc: 4.00 2.1-3.4 cm Pulmonary Valve PV Pk Edinson: 0.81 Peak PV Grad: 3.00 Updated in Other Vendor System with Status of Final Dudley Jamison MD electronically signed on 02/09/2025 4:20:19 PM with status of Final
--- OUTSIDE RECORDS SUMMARY | 2025-02-09 08:55 | XMS_ITS | Clinical Summary ---
Author Organization [facility] Address [address] [place] [address] Care Team Providers Care Oil Expeller Operator Name Role Phone Luisito Jha MD Primary Care Provider [phone] Allergies Active Allergy Reactions Criticality Noted Date [...] to complete this topic Insurance [facility]EN [facility] MGD Care Teams Oil Expeller Operator Relationship Specialty Start Date End Date Luisito Jha MD PCP - General Internal Medicine 12/14/17
--- OUTSIDE RECORDS SUMMARY | 2025-02-09 08:55 | XMS_ITS | Clinical Summary ---
Author Organization [facility] Address [address] [place] [address] Care Team Providers Care Shopper'S Aide Name Role Phone Jaquan Tristan MD Primary [...] Encounters Date Type Department Care Team Description 02/04/2025 Documentation [facility] [address] [facility] [place] [place] [address] Lawanda Dalton MD 12/16/2024 Scanned Document [facility] [place] [address] [place] [address] Lyle Jerome MD 12/08/2024 11:30 AM EDT Office Visit [address] [place] [address] Lawanda Dalton MD History of colon polyps (Primary Dx); Gastroesophageal reflux disease with esophagitis without hemorrhage; Constipation, unspecified constipation type from Last 3 Months Immunizations Immunization Administration [...] 12/08/2024 11:27 AM EDT Plan of Treatment Health Maintenance Due Date Last Done Comments Advance Care Planning 1950 Hepatitis C Virus Screening 1950 Influenza Vaccine 10/31/2024 01/11/2024, , 01/09/2022, Additional history exists COVID-19 Vaccine ( season) 2024 04/15/2022, 07/05/2021, 01/24/2021, Additional history exists DTaP/Tdap/Td Vaccines (2 - Td or Tdap) 04/15/2029 04/15/2019 Colonoscopy 01/25/2032 01/24/2022, 01/17/2017 Zoster (Shingles) Vaccine Completed 2020, 05/28/2020, 01/26/2016 Pneumococcal Vaccines 50+ Completed 01/09/2022, 05/2017 RSV Vaccine 50 years and older and Patients Completed 04/06/2023 Hepatitis B Vaccines Aged Out No long er eligible based on patient's age to complete this topic Insurance [facility] MEDICARE [facility] MEDICARE Care Teams Shopper'S Aide Relationship Specialty Start Date End Date Jaquan Tristan MD [address] [place] [address] PCP - General Family Medicine 05/21/19
--- OUTSIDE RECORDS SUMMARY | 2025-02-09 08:55 | XMS_ITS | Clinical Summary ---
Author Organization [facility] Address [address] [place] [address] Phone Care Team Providers Care Armhole Baster Jumpbasting Name Role Phone DamiánJaquan skelton Mata CUNHA Primary Care Provider Encounters Date Type Department Care Team Description 02/05/2025 Lab Requisition [facility] Main Lab [address] [place] [address] Lawanda Dalton MD Personal history of colon polyps, unspecified from Last 3 Months Surgical History Surgery Date Site/Laterality Comments JOINT [...] UPPER ENDOSCOPY-EGD; Surgeon: Jerry Sanderson MD; Location: [facility]; Service: Gastroenterology; Laterality: N/A; COLONOSCOPY 01/17/2017 N/A PROCEDURE:COLONOSCOPY;COMMENT :Procedure: COLONOSCOPY; Surgeon: Jerry Sanderson MD; Location: [facility]; Service: Gastroenterology; Laterality: N/A; UPPER GASTROINTESTINAL ENDOSCOPY 11/10/2015 N/A PROCEDURE:UPPER GASTROINTESTINAL ENDOSCOPY;COMMENT:Procedure: UPPER ENDOSCOPY-EGD; Surgeon: Jerry Sanderson MD; Location: [facility]; Service: Gastroenterology; Laterality: N/A; TOTAL KNEE ARTHROPLASTY 02/10/2014 Right PROCEDURE:TOTAL KNEE ARTHROPLASTY;COMMENT:Procedur e: REPLACEMENT TOTAL KNEE; Surgeon: Ambrose Olson MD; Location[facility]); Service: Orthopedics; Laterality: Right; CATARACT EXTRACTION W/ INTRAOCULAR LENS IMPLANT Left PROCEDURE:CATARACT EXTRACTION W/ INTRAOCULAR LENS IMPLANT COLONOSCOPY 01/24/2022 N/A PROCEDURE:COLONOSCOPY;COMMENT :Procedure: COLONOSCOPY; Surgeon: Isra Alvarado MD; Location: [facility]; Service: Gastroenterology; [...] Years Used Date Smoking Tobacco: Former Cigarettes 0 Q uit: 04/02/2014 Smokeless Tobacco: Never Alcohol Use Standard Drinks/Week Comments No 0 (1 standard drink = 0.6 oz pur e alcohol) Sex and Gender Information Value Date Recorded Sex Assigned at Not on file Legal Sex Male 11:04 AM EST Gender Identity Not on file Sexual Orientation Not on file Obstetrics History Plan of Treatment Health Maintenance Due Date Last Done Comments Depression Screening 04/02/2024 COVID-19 Vaccine ( season) [...] on patient's age to complete this topic Procedures Procedure Name Priority Date/Time Associated Diagnosis Comments TISSUE EXAM Routine 02/04/2025 Personal history of colon polyps, unspecified from Last 3 Months Results * Tissue Exam (02/04/2025) Final Diagnosis A.Ascending Colon, Polyp x2: Tubular Adenoma in 5 fragments 02/06/2025 9:14 AM EST [facility] ([facility]) [facility] at 0914 EST Gross Description A. Large Intestine, Right/Ascendi ng Colon, ascending colon polyp x2: Received in formalin, labeled right ascending colon polyp and consists of multiple mobley-pink irregular tissue fragments measuring 1.0 x 0.6 x 0.1 cm, which are entirely submitted in 1 cassette. Please note the specimen is friable and may fragment following processing. Please note the specimen is delicate and may not survive processing. EM 02/05/25 (Multiple) 02/06/2025 9:14 AM EST [facility] Disclaimer The technical components of this case were performed at [address] [address] CLIA # [id number] 02/06/2025 9:14 AM EST [facility] Tissue Ascending colon structure / Unknown 02/04/2025 02/05/2025 8:41 AM EST Kelseaoh Denilson Dalton MD LAB PATHOLOGY ORDERABL ES Final Result [facility] [address] [place] [address], from Last 3 Months Care Teams Armhole Baster Jumpbasting Relationship Specialty Start Date End Date Jaquan Tristan NP [address] [facility] PCP - General Family Medicine 01/24/22
--- OUTSIDE RECORDS SUMMARY | 2025-02-09 08:55 | XMS_ITS | Encounter Summary ---
Author Organization [facility] Address [address] [place] [address] Care Team Providers Care Health Center Associate Name Role Phone DamiánJaquan skelton Mata CUNHA Primary Care Provider Encounter Details Date Type Department Care Team (Late st Contact Info) Description 02/05/2025 Lab Requisition [facility] Main Lab [address] [place] [address] Lawanda Dalton MD [address] [address] Personal history of colon polyps, unspecified Social History Tobacco Use Types Packs/Day Years [...] as of this encounter Plan of Treatment Not on file documented as of this encounter Procedures Procedure Name Priority Date/Time Associated Diagnosis Comments TISSUE EXAM Routine 02/04/2025 Personal history of colon polyps, unspecified documented in this encounter Results * Tissue Exam (02/04/2025) Final Diagnosis A.Ascending Colon, Polyp x2: Tubular Adenoma in 5 fragments 02/06/2025 9:14 AM EST [facility] ([facility]) [facility] at 0914 EST Gross Description A. [...] EM 02/05/25 (Multiple) 02/06/2025 9:14 AM EST [facility] Disclaimer The technical components of this case were performed [address] # [id number] 02/06/2025 9:14 AM EST [facility] Tissue Ascending colon structure / Unknown 02/04/2025 02/05/2025 8:41 AM EST Kelseami Denilson Dalton MD LAB PATHOLOGY ORDERABL ES Final Result Performing Organization Address City/State/[facility] Co de Phone Number [facility] [address] [place] [address], documented in this encounter Visit Diagnoses Diagnosis Personal history of colon polyps, unspecified documented in this encounter Care Teams Health Center Associate Relationship Specialty Start Date End Date Jaquan Tristan NP [address] [facility] [place] PCP - General Family Medicine 01/24/22 documented as of this encounter
--- OUTSIDE RECORDS SUMMARY | 2025-02-09 08:55 | XMS_ITS | Clinical Summary ---
Author Organization [facility] Address [address] [place] [address] Care Team Providers Care Leak Gang Supervisor Name Role Phone Jaquan Tristan Primary Care Provider [phone] Allergies Active Allergy Reactions Criticality Noted Date [...] this topic Medical Devices Implanted Type Area High Risk Ob Device Identifier Shelf Expiration Date Model / Serial / Lot Samson Weber Vena Cava Filter- 4 Implanted:02/06 by Pilo Zaragoza DO (Quantity not on file) Explanted:(Hood tity not on file) / [id number]_[id number] P / [id number] Cement Simplex P Radiopaque Full Dose Bone - [id number] - [id number] Implanted:Qty: 2 on 02/10/2014 by Ambrose Olson MD at [facility] Right: Knee [employer] 05/13/2016 6191-1-010 / / [id number] Component Triathlon 7 Posterior Stabilized Cemented Femoral - [id number] - [id number] Implanted:Qty: 1 on 02/10/2014 by Ambrose Olson MD at [facility] Right: Knee [employer] 07/11/2018 5515-F-702 / / [id number] Plug Artisan Medium 25mm Plug Bone Cement - [id number] - [id number] Implanted:Qty: 1 on 02/10/2014 by Ambrose Olson MD at [facility] Right: Knee [employer] 02/10/2015 6215-5-011 / / [id number] Stem Triathlon 50mm 15mm Cemented Totl Stabilized Cocr - [id number] - [id number] Implanted:Qty: 1 on 02/10/2014 by Ambrose Olson MD at [facility] Right: Knee [employer] 08/10/2018 5560-[id number] / / [id number] Baseplate Triathlon 7 [place] Totl Stabilized Cemented - [id number] - [id number] Implanted:Qty: 1 on 02/10/2014 by Ambrose Olson MD at [facility] Right: Knee [employer] 05/13/2018 5521-B-700 / / [id number] Component Patella 36mm Trini 10mm Thick Symmetric Triathlon - [id number] - [id number] Implanted:Qty: 1 on 02/10/2014 by Ambrose Olson MD at [facility] Right: Knee [employer] 11/10/2018 5550-L-360 / / [id number] Insert Tibial Articular Posterior Stabilized 11mm Thick Size - [id number] - [id number] Implanted:Qty: 1 on 02/10/2014 by Ambrose Olson MD at [facility] Right: Knee [employer] 02/10/2018 5532-P-711 / / [id number] Advance Directives For more information, please contact: [phone] Documents on File Type Date Recorded Patient Sealer Aircraft Expl anation Advance Directive and Living Will [...] following way: discussion with patient. Care Teams Leak Gang Supervisor Relationship Specialty Start Date End Date Jaquan Tristan: [phone] [address] [facility] [place] [address] PCP - General Family Medicine 01/24/22
--- OUTSIDE RECORDS SUMMARY | 2025-02-09 08:56 | XMS_ITS | Encounter Summary ---
Author Organization [facility] Address [address] [place] [address] Care Team Providers Care Juice Standardizer Name Role Phone Jaquan Tristan MD Primary Care Provider [phone] Encounter Details Date Type Department Care Team (Late st Contact Info) Description 12/16/2024 Scanned Document [facility] [place] [address] [place] [address] Lyle Jerome MD [address] [place] [address] Social History Tobacco Use Types Packs/Day Years [...] on filedocumented in this encounter Care Teams Juice Standardizer Relationship Specialty Start Date End Date Jaquan Tristan MD [address] [place] [address] PCP - General Family Medicine 05/21/19 documented as of this encounter
--- OUTSIDE RECORDS SUMMARY | 2025-02-09 08:56 | XMS_ITS | Encounter Summary ---
Author Organization [facility] Address [address] [place] [address] Care Team Providers Care Pediatric Medical Assistant Name Role Phone Jaquan Tristan MD Primary Care Provider + [phone] Encounter Details Date Type Department Care Team (Late st Contact Info) Description 02/04/2025 Documentation [facility] [address] [place] [address] [place] [phone] Lawanda Dalton MD [address] [place] [address] Social History Tobacco Use Types Packs/Day Years [...] on file documented as of this encounter Progress Notes * Lawanda Dalton MD - 02/04/2025 12:35 PM EST PRE PROCEDURE H&P - [facility] PROCEDURE: COLONOSCOPY CHIEF COMPLAINT: SEE HPI HPI: Patient is a 74 y.o. year old male here for colo for h/o polyps; s/p colo 12/2021 - 2 polyps 8-10mm resected Past Medical History: Diagnosis Date Anemia Recent blood work showed drop in hub and occult blood in stool Arthritis Atrial fibrillation (HCC) Jeffrey esophagus Pre Colon polyp On occasion COVID CPAP (continuous positive airway pressure) dependence 2001 Diverticulitis Diverticulitis of colon 2001 DVT (deep venous thrombosis) (HCC) 2007 GERD (gastroesophageal reflux disease) 6 Gout H/O blood clots pulomary emboli Hernia 2004 Hypertension 2019 IBS (irritable bowel syndrome) Sleep apnea uses BIPAP Family History Problem Relation Age of Onset Leukemia Father Cancer, other Father Leukemia Diabetes Mother Social History Socioeconomic History Marital status: Spouse name: Not on file Number of children: Not on file Years of education: Not on file Highest education level: Not on file Occupational History Not on file Tobacco Use Smoking status: Never Smokeless tobacco: Never Vaping Use Vaping status: Never Used Substance and Sexual Activity Alcohol use: Not Currently Comment: Patient reported quit over several years ago. Drug use: Yes Types: Marijuana Comment: Everyday use - advised to stop 7 days prior Sexual activity: Not on file Other Topics Concern Not on file Social History Narrative Not on file Social Drivers of Health Financial Resource Strain: Not on file Food Insecurity: Not on file Transportation Needs: Not on file Physical Activity: Not on file Stress: Not on file Social Connections: Not on file Housing Stability: Not on file Allergies[1] Scheduled Meds: Continuous Infusions: No current facility-administered medications for this visit. PRN Meds: Prescriptions Prior to Admission[2] There were no vitals taken for this visit. Examination Eyes: no icterus ENT: No lymphadneopathy CVS: RRR Abdomen: soft, NT, ND, BS + Extremities: no c/c/e Neuro: AAO X 3, no asterixis. IMPRESSION: as above PLAN: Proceed with planned procedure ASA per anesthesia EGD / Colonoscopy. The risks and benefits to procedure as recommended were carefully explained to the patient. The potential risks include but are not limited to cardiopulmonary complications, perforation, surrounding organ injury, bleeding, infection, missed lesions, interval cancer, incomplete exam and . [1] Allergies Allergen Reactions Vicodin [Hydrocodone-Acetaminophen] Delirium/Confusion/Psychosis Morphine Rash/Dermatitis [2] (Not in a hospital admission) documented in this encounter Plan of Treatment Not on file documented as of this encounter Visit Diagnoses Not on filedocumented in this encounter Care Teams Pediatric Medical Assistant Relationship Specialty Start Date End Date Jaquan Tristan MD [address] [place] [address] PCP - General Family Medicine 05/21/19 documented as of this encounter
== END ==
LOC: HO.CARD 08:35
PROVIDERS: PCP Nurse Practitioner Family; Visit Provider Internal Medicine
DX: I48.19 Other persistent atrial fibrillation (principal)
CPT/HCPCS: 93306

== ENCOUNTER → 2025-02-09 08:40 | Outpatient (BNV) | payer MEDICARE, SELFPAY | PROVIDERS: PCP Nurse Practitioner Family; Visit Provider Internal Medicine Cardiovascular Disease | DX: I51.7 Cardiomegaly (principal); I35.1 Nonrheumatic aortic (valve) insufficiency; I77.810 Thoracic aortic ectasia | CPT/HCPCS: 93306 ==

== ENCOUNTER 2025-02-23 13:47 | Outpatient (REF) | payer MEDICARE, SELFPAY ==
[2025-02-23 17:07] LABS: Alanine Aminotransferase 16 U/L (0-40); Albumin Level 4.2 g/dL (3.5-5.0); Alkaline Phosphatase 99 U/L (39-117); Anion Gap 12 (12-20); Aspartate Amino Transferase 39 U/L (5-37); Blood Urea Nitrogen 18 mg/dL (9-16); Calcium 9.5 mg/dL (8.4-10.2); Carbon Dioxide 32 mmol/L (22-29); Chloride 103 mmol/L (96-108); Cholesterol 105 mg/dL (<200); Estimated Glomerular Filt Rate > 60; HDL Cholesterol 48 mg/dL (>40); Potassium 4.6 mmol/L (3.3-5.1); Sodium 142 mmol/L (135-145); Total Protein 7.3 g/dL (6.5-8.0); Triglycerides 98 mg/dL (<150); Uric Acid 4.8 mg/dL (3.4-7.0)
--- OUTSIDE RECORDS SUMMARY | 2025-02-23 18:39 | XMS_ITS | Encounter Summary ---
Author Organization [facility] Address [address] [place] [id number] Care Team Providers Care Tennis Centre Manager Name Role Phone DamiánJaquan skelton Mata CUNHA Primary Care Provider Encounter Details Date Type Department Care Team (Late st Contact Info) Description 02/05/2025 Lab Requisition [facility] Main Lab [address] [place] [address] Lawanda Dalton MD [address] [address] Personal history of colon polyps, unspecified Social [...] in 5 fragments 02/06/2025 9:14 AM EST [facility] at 0914 EST Gross Description A. [...] EM 02/05/25 (Multiple) 02/06/2025 9:14 AM EST [facility] Disclaimer The technical components of this case were performed at [address] [id number] 02/06/2025 9:14 AM EST [facility] Tissue Ascending colon structure / Unknown 02/04/2025 02/05/2025 8:41 AM EST Kelse[facility] Denilson Dalton MD LAB PATHOLOGY ORDERABL ES Final Result Performing Organization Address City/State/[facility] Co de Phone Number [facility] [address] [place] [address], documented in this encounter Visit Diagnoses Diagnosis Personal history of colon polyps, unspecified documented in this encounter Care Teams Tennis Centre Manager Relationship Specialty Start Date End Date Jaquan Tristan NP [address] [facility] [place] PCP - General Family Medicine 01/24/22 documented as of this encounter
--- OUTSIDE RECORDS SUMMARY | 2025-02-23 18:39 | XMS_ITS | Clinical Summary ---
Author Organization [facility] Address [address] [place] [address] Care Team Providers Care Dining Room Server Name Role Phone Jaquan Tristan MD Primary [...] Type Department Care Team Description 02/04/2025 Documentation [facility] [address] [facility] [place] [address] Lawanda Dalton MD 12/16/2024 Scanned Document [facility] [place] [address] [place] [address] Lyle Jerome MD 12/08/2024 11:30 AM EDT Office Visit [address] [place] [phone] Lawanda Dalton MD History of colon polyps [...] - Td or Tdap) 04/15/2029 04/15/2019 Colonoscopy 02/04/2035 02/04/2025, 01/01, 01/17/2017 Zoster (Shingles) Vaccine Completed 2020, 05/28/2020, 01/26/2016 Pneumococcal Vaccines 50+ Completed 01/09/2022, 05/2017 RSV Vaccine 50 years and older and Patients Completed 04/06/2023 Hepatitis B Vaccines Aged Out No long er eligible based on patient's age to complete this topic Procedures Procedure Name Priority Date/Time Associated Diagnosis Comments COLONOSCOPY (CC) Routine 02/04/2025 2:59 PM EST from Last 3 Months Results * COLONOSCOPY (CC) (02/04/2025 2:59 PM EST) Lawanda Dalton MD [facility] ORDERABLE PERFORMABLE Final Result from Last 3 Months Insurance [facility] MEDICARE [employer] MEDICARE Care Teams Dining Room Server Relationship Specialty Start Date End Date Jaquan Tristan MD [address] [place] [address] PCP - General Family Medicine 05/21/19
--- OUTSIDE RECORDS SUMMARY | 2025-02-23 18:39 | XMS_ITS | Clinical Summary ---
Author Organization [facility] Address [address] [place] [address] Care Team Providers Care Ict Educator Name Role Phone Luisito Jha MD Primary Care Provider [phone] Allergies Active Allergy Reactions Criticality Noted Date [...] to complete this topic Insurance [facility] MGD Care Teams Ict Educator Relationship Specialty Start Date End Date Luisito Jha MD PCP - General Internal Medicine 12/14/17
--- OUTSIDE RECORDS SUMMARY | 2025-02-23 18:39 | XMS_ITS | Clinical Summary ---
Author Organization [facility] Address [address] [place] [address] Care Team Providers Care Phonograph Mechanic Name Role Phone Jaquan Tristan Primary Care Provider [phone] Allergies Active Allergy Reactions Criticality Noted Date [...] this topic Medical Devices Implanted Type Area Charter Driver Device Identifier Shelf Expiration Date Model / Serial / Lot Samson Weber Vena Cava Filter- 4 Implanted:02/06 by Pilo Zaragoza DO (Quantity not on file) Explanted:(Hood tity not on file) / [id number]- 1_[id number] P / [id number] Cement Simplex P Radiopaque Full Dose Bone - [id number] - [id number] Implanted:Qty: 2 on 02/10/2014 by Ambrose Olson MD at [facility] Right: Knee [employer] 05/13/2016 6191-1-010 / / [id number] Component Triathlon 7 Posterior Stabilized Cemented Femoral - [id number] - [id number] Implanted:Qty: 1 on 02/10/2014 by Ambrose Olson MD at [facility] Right: Knee [employer] 07/11/2018 5515-F-702 / / [id number] Plug Artisan Medium 25mm Plug Bone Cement - [id number] - [id number] Implanted:Qty: 1 on 02/10/2014 by Ambrose Olson MD at [facility] Right: Knee [employer] 02/10/2015 6215-5-011 / / [id number] Stem Triathlon 50mm 15mm Cemented Totl Stabilized Cocr - [id number] - [id number] Implanted:Qty: 1 on 02/10/2014 by Ambrose Olson MD at [facility] Right: Knee [employer] 08/10/2018 5560-S-115 / / [id number] Baseplate Triathlon 7 Phoenix Totl Stabilized Cemented - [id number] - [id number] Implanted:Qty: 1 on 02/10/2014 by Ambrose Olson MD at [facility] Right: Knee [employer] 05/13/2018 5521-B-700 / / [id number] Component Patella 36mm Trini 10mm Thick Symmetric Triathlon - [id number] - [id number] Implanted:Qty: 1 on 02/10/2014 by Ambrose Olson MD at [facility] Right: Knee [employer] 11/10/2018 5550-L-360 / / [id number] Insert Tibial Articular Posterior Stabilized 11mm Thick Size - [id number] - [id number] Implanted:Qty: 1 on 02/10/2014 by Ambrose Olson MD at [facility] Right: Knee [employer] 02/10/2018 5532-P-711 / / [id number] Advance Directives For more information, please contact: [phone] Documents on File Type Date Recorded Patient Hemodialysis Rn Expl anation Advance Directive and Living Will [...] following way: discussion with patient. Care Teams Phonograph Mechanic Relationship Specialty Start Date End Date Jaquan Tristan: [phone] [address] [facility] [place] [address] PCP - General Family Medicine 01/24/22
--- OUTSIDE RECORDS SUMMARY | 2025-02-23 18:39 | XMS_ITS | Encounter Summary ---
Author Organization [facility] Address [address] [place] [address] Care Team Providers Care Campground Manager Name Role Phone Jaquan Tristan MD Primary Care Provider + [phone] Encounter Details Date Type Department Care Team (Late st Contact Info) Description 12/16/2024 Scanned Document [facility] [place] [address] [place] [phone] Lyle Jerome MD [address] [place] [address] Social History Tobacco Use Types Packs/Day Years [...] on filedocumented in this encounter Care Teams Campground Manager Relationship Specialty Start Date End Date Jaquan Tristan MD [address] [place] [address] PCP - General Family Medicine 05/21/19 documented as of this encounter
--- OUTSIDE RECORDS SUMMARY | 2025-02-23 18:39 | XMS_ITS | Clinical Summary ---
Author Organization [facility] Address [address] [place] [address] Phone Care Team Providers Care Chopper Operator Name Role Phone DamiánJaquan skelton Mata CUNHA Primary Care Provider Encounters Date Type Department Care Team Description 02/05/2025 Lab Requisition [facility] Main Lab [address] [place] [address] Lawanda Dalton MD Personal history [...] UPPER ENDOSCOPY-EGD; Surgeon: Jerry Sanderson MD; Location: [facility]; Service: Gastroenterology; Laterality: N/A; COLONOSCOPY 01/17/2017 N/A PROCEDURE:COLONOSCOPY;COMMENT :Procedure: COLONOSCOPY; Surgeon: Jerry Sanderson MD; Location: [facility]; Service: Gastroenterology; Laterality: N/A; UPPER GASTROINTESTINAL ENDOSCOPY 11/10/2015 N/A PROCEDURE:UPPER GASTROINTESTINAL ENDOSCOPY;COMMENT:Procedure: UPPER ENDOSCOPY-EGD; Surgeon: Jerry Sanderson MD; Location: [facility]; Service: Gastroenterology; Laterality: N/A; TOTAL KNEE ARTHROPLASTY 02/10/2014 Right PROCEDURE:TOTAL KNEE ARTHROPLASTY;COMMENT:Procedur e: REPLACEMENT TOTAL KNEE; Surgeon: Ambrose Olson MD; [facility] Service: Orthopedics; Laterality: Right; CATARACT EXTRACTION W/ INTRAOCULAR LENS IMPLANT Left PROCEDURE:CATARACT EXTRACTION W/ INTRAOCULAR LENS IMPLANT COLONOSCOPY 01/24/2022 N/A PROCEDURE:COLONOSCOPY;COMMENT :Procedure: COLONOSCOPY; Surgeon: Isra Alvarado MD; Location: [facility]; Service: Gastroenterology; Laterality: N/A; Medical History [...] Done Comments Colorectal Cancer Screening: Colonoscopy 1950 Depression Screening 04/02/2024 COVID-19 Vaccine ( season) 2024 04/15/2022, 07/05/2021, 01/24/2021, Additional history exists Influenza Vaccine (#1) 2024 , 02/07/2023, 01/09/2022, Additional history exists Cholesterol Screening (Lipid Panel) 02/10/2025 03/19/2018 Falls Risk Assessment 02/10/2025 Hepatitis C Screening 02/10/2025 Medicare Annual Wellness Visit 02/10/2025 Social Influencers of Health Screening 02/10/2025 DTaP,Tdap,and Td Vaccines (2 - Td or [...] in 5 fragments 02/06/2025 9:14 AM EST [facility] 0914 EST Gross Description [...] EM 02/05/25 (Multiple) 02/06/2025 9:14 AM EST [facility] Disclaimer The technical components of [place] [address] CLIA # [id number] 02/06/2025 9:14 AM EST [facility] Tissue Ascending colon structure / Unknown 02/04/2025 02/05/2025 8:41 AM EST [facility] Denilson Dalton MD LAB PATHOLOGY ORDERABL ES Final Result [facility] [address] [place] [address], from Last 3 Months Insurance [employer] MEDICARE ADVANTAGE Care Teams Chopper Operator Relationship Specialty Start Date End Date Jaquan Tristan NP [address] [facility] [place] PCP - General Family Medicine 01/24/22
== END 2025-02-23 13:48 | disposition home or self-care (01) ==
LOC: HO.HMGCLDS 13:47
PROVIDERS: PCP Nurse Practitioner Family; Visit Provider Nurse Practitioner Family
DX: I10 Essential (primary) hypertension (principal); Z87.39 Personal history of other diseases of the musculoskeletal system and connective tissue
CPT/HCPCS: 36415; 80053; 80061; 84550

== ENCOUNTER 2025-03-09 07:52 | Outpatient (AMB) | payer MEDICARE, SELFPAY ==
--- NOTE | 2025-03-09 07:55 | MHC.OFFVIS ---
Intake Visit Reasons: microscopic hematuria/PVR/UA/SET Intake Note: New Patient is present for Micro Hematuria Urology Rx:VITB12, PVR:58 mls Blood Thinners:Apixaban Imaging completed: CT urogram 01/27/25 Labs done 12/31/24 PSA 0.45 Rn Care Manager Required: No Accompanied by: Self / Same As Patient Allergies hydrocodone (From Vicodin) Allergy (Unknown, Verified 03/09/25 08:33) rash morphine Allergy (Unknown, Verified 03/09/25 08:33) rash Medication List - Last Reconciled 03/09/25 by DAVIDA Goodwin- allopurinol 200 mg PO DAILY 90 days apixaban (Eliquis) 5 mg PO BID 90 days atorvastatin 20 mg PO BEDTIME carisoprodol (Soma) 350 mg PO BEDTIME PRN 10 days carvedilol (Coreg) 3.125 mg PO BID 90 days cholecalciferol (vitamin D3) 50 mcg PO DAILY 3 months MDD 2000 units dexlansoprazole 60 mg PO QAM hydrochlorothiazide 50 mg PO DAILY irbesartan 150 mg PO DAILY loperamide 2 mg PO QID PRN 20 days magnesium sulfate 100 mg PO DAILY mecobalamin (vitamin B12) 1,000 mcg sublingual BEDTIME 2 months MDD 1 tablet penicillin V potassium 500 mg PO BID polyethylene glycol 3350 (Miralax) 17 grams PO DAILY prednisone 40 mg (2 x 20 mg) PO DAILY 4 days tizanidine 4 mg PO BEDTIME PRN 20 days tramadol 50 mg PO TID PRN HPI Comments Details: Thomas is a very pleasant 74-year-old male patient of Dr. Toussaint. He has a past medical history of spinal stenosis, hypertension, AFib, MARIE on CPAP, vertigo, GERD, peripheral vascular disease, and sacrolitis. He presents to the office today as a new patient for microscopic hematuria. In discussion with the patient today reports having followed up with his PCP at which time urinalysis noted microscopic hematuria and recommendations were made for urology referral for further assessment evaluation. In office urinalysis today does not note any microscopic hematuria. We did discussed potential causes of microscopic hematuria as well as further workup in risks and benefits of these interventions. He does report a longstanding history of marijuana dependence since the age of 19. He reports smoking multiple joints daily however feels he is smoking more now that he is retired he discusses his previous job at [employer]. He does report episodes of nocturia however relates this to his increase fluids prior to bed. He otherwise denies urinary urgency, urinary frequency, incontinence, hematuria, dysuria, foul smelling urine, changes to urinary stream, flank pain, fever, and or chills. He is happy with his current voiding parameters. I discussed reasons for blood in the urine may include but are not limited to kidney stones, cancer in the urinary tract, BPH, kidney stone disease or inflammatory conditions of the urinary tract. I have discussed workup to include cystoscopy evaluation. In review of patient's chart it does appear CT urogram has been ordered and performed. These results were reviewed and communicated with the patient today. 01/24 Bilateral kidneys with no hydronephrosis or nephrolithiasis. Normal urinary excretion of bilateral collecting systems. The bladder is fluid-filled and nondistended. PSA 01/24 0.5. All questions were answered. He otherwise offers no other issues or concerns at this time. [facility] Medical History Spinal stenosis, lumbar region with neurogenic claudication Essential hypertension Persistent atrial fibrillation Sacroiliac inflammation Aneurysm Dislocation of right shoulder joint Shoulder pain with history of repair of rotator cuff IFG (impaired fasting glucose) MARIE on CPAP Vertigo GERD (gastroesophageal reflux disease) PVD (peripheral vascular disease) Disc degeneration Sacroiliitis Cellulitis of multiple sites of buttock Surgical History History of rotator cuff tear History of vitrectomy History of bilateral carpal tunnel release H/O umbilical hernia repair History of bilateral knee replacement History of bilateral hip replacements Family History Father Leukemia Mother No problems noted. Social History Housing: House Alcohol intake: never Patient Tobacco Use Status: Former Tobacco user Years Smoked: 40 years ago e-Cigarette/Vaping Use: Never Used Second Hand Smoke Exposure: No Substance Use Type: Marijuana service: No Current occupational status: retired Cognitive needs: No Hearing needs: No Vision needs: No Review of Systems Const All systems reviewed & are unremarkable except as noted in HPI and below Physical Exam Const General: cooperative, healthy appearing, comfortable, no acute distress, well developed, alert and awake Nutritional Appearance: overweight Orientation/consciousness: patient oriented x3 Limitations: no limitations HEENT Head: Yes normal to inspection, Yes normocephalic and Yes atraumatic Ears: hearing grossly normal bilaterally Eyes General: appearance normal, both eyes and all related structures Neck Neck: Yes normal visual inspection and Yes trachea midline Chest Chest palpation & inspection: normal inspection of the chest Resp Effort & Inspection: normal respiratory effort and able to speak in complete sentences Cardio Rate: regular rate GI Inspection: Yes normal to inspection General: Yes no CVA tenderness Back/Spine/Pelvis Back: no CVA tenderness Skin General skin exam: no rashes or lesions noted Neuro General: patient oriented x3 Extrem General: Yes normal to inspection Psych Appearance: grossly normal and well kempt Mental Status: mental status grossly normal Speech and movement: Normal speech and movement present and Clear speech present Affect: normal affect Attitude: cooperative Thought process: Normal thought process present Thought content: Normal thought content present Insight: Fair insight present (Psych) Judgement: Fair judgement present (Psych) Office Procedures Post Void Residual Post Residual Void Post Void Residual (PVR): 58 [id number]-Eosa Void Residual by ultrasound Results AMB Urinalysis, Automated UA Leukoctes 0 Peng/uL Last Edit by Jazmin Mcfadden [facility] on 03/09/25 08:04 UA Nitrite Negative Last Edit by Jazmin Mcfadden [facility] on 03/09/25 08:04 UA Urobilinogen 0.2 mg/dL Last Edit by Jazmin Mcfadden [facility] on 03/09/25 08:04 UA Protein 30 mg/dL Last Edit by Jazmin Mcfadden [facility] on 03/09/25 08:04 UA pH 6.0 Last Edit by Jazmin Mcfadden [facility] on 03/09/25 08:04 UA Blood 0 Yohannes/uL Last Edit by Jazmin Mcfadden [facility] on 03/09/25 08:04 UA Specific [place] 1.015 Last Edit by Jazmin Mcfadden [facility] on 03/09/25 08:04 UA Ketone Negative Last Edit by Jazmin Mcfadden [facility] on 03/09/25 08:04 UA Bilirubin 1 mg/dL Last Edit by OJ Carlin on 03/09/25 08:04 UA Glucose 0 mg/dL Last Edit by OJ Carlin on 03/09/25 08:04 Results Reviewed Results Reviewed: Laboratory Last Values Urine pH (Auto) 6.0 03/09/25 08:03 Specific [place] (Auto) 1.015 03/09/25 08:03 Urine Protein (Auto) 30 mg/dL 03/09/25 08:03 Glucose (UA)(Auto) 0 mg/dL 03/09/25 08:03 Urine Ketones (Auto) Negative 03/09/25 08:03 Urine Blood (Auto) 0 Yohannes/uL 03/09/25 08:03 Urine Nitrite (Auto) Negative 03/09/25 08:03 Urine Bilirubin (Auto) 1 mg/dL 03/09/25 08:03 Urine Urobilinogen (Auto) 0.2 mg/dL 03/09/25 08:03 Leukocyte Esterase (Auto) 0 Peng/uL 03/09/25 08:03 Date of Service: 01/27/25 Procedure(s): CT urogram FINDINGS: LUNG BASES: Inadequate evaluation. LIVER, GALLBLADDER, AND BILIARY TREE: Liver measures 16 cm. Gallbladder is fluid-filled nondistended without pericholecystic fluid collection or gallbladder wall thickening. No intrahepatic or extrahepatic biliary ductal dilatation. PANCREAS: No enhancing mass. No peripancreatic fluid collection. No main pancreatic ductal dilatation. SPLEEN: 11 cm. No gross solid or cystic lesion. ADRENAL GLANDS: No nodular lesions. KIDNEYS AND URETERS: Right kidney: No hydronephrosis. No nephrolithiasis. Normal enhancement pattern of the renal parenchyma. Normal urinary excretion into the collecting system. No dilatation of the ureter. Left kidney: No hydronephrosis. No nephrolithiasis. Normal enhancement pattern of the renal parenchyma. Normal urinary excretion into the collecting system. No dilatation of the ureter. BLADDER: Fluid-filled nondistended. GASTROINTESTINAL TRACT: Abundant stool throughout the large intestine. Terminal ileum is normal. I do not see the appendix, though no pericecal edema pattern. No intestinal obstruction pattern. No pneumatosis intestinalis. No ascites. No pneumoperitoneum. Inadequate evaluation of the pelvis secondary metallic beam hardening artifact secondary to bilateral hip prosthesis. ABDOMINAL WALL: Status post abdominal wall mesh, periumbilical and right upper quadrant/epigastric. LYMPH NODES: No specific prominent mesenteric and retroperitoneal. VASCULAR: Calcified plaques in the coronary arteries, aorta, the origin of the mesenteric arteries the main renal arteries, splenic artery and iliac arteries as well as the femoral arteries. No aneurysm or dissection, abdominal aorta. PELVIC VISCERA: No gross enlarged lesion. OSSEUS STRUCTURES: Status post bilateral hip arthroplasty prosthesis. 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 Grade 1 retrolisthesis L1 to and L2-3 posterior tibial 5 S1 levels. IMPRESSION: No hydronephrosis or nephrolithiasis or gross renal mass. Assessment & Plan Assessment & Plan (1) Microscopic hematuria: Code(s): R31.29 - Other microscopic hematuria Category: Medical (2) Marijuana dependence: Code(s): F12.20 - Cannabis dependence, uncomplicated Category: Medical Plan In office urinalysis results reviewed with the patient today; as noted above; will send for urine cytology. He currently denies any bothersome urinary issues or concerns. He reports be happy with current voiding parameters. Recent CT urogram results reviewed with the patient today; as noted above. Recent PSA results reviewed with the patient today; as noted above. We did discussed potential causes of microscopic hematuria as well as further treatment options and risks and benefits of these treatment options. Will continue with surveillance monitoring at this time. We did discuss importance of limiting /quitting marijuana dependence for overall health and well-being. Follow-up in 6 months; or sooner with any issues, concerns, and or questions. Orders: Orders Urine Cytology Today R31.29 - Other microscopic hematuria AMB Urinalysis Automated Today N13.8 - Other obstructive and reflux uropathy, N40.1 - Benign prostatic hyperplasia with lower urinary tract symptoms AMB Post Void Residual by ultrasound Today N40.1 - Benign prostatic hyperplasia with lower urinary tract symptoms Patient Instructions: The patient had an opportunity to ask questions regarding the treatment plan. All questions were answered. Physical exam, labs, and imaging were discussed and reviewed in detail. As well as risks, benefits, and discussion of treatment choices. No major barriers to understanding were identified. The patient expressed understanding and agreement with the above treatment plan. The patient was made aware they should contact our office by phone for worsening of their current condition, the appearance of new symptoms, or with any questions or concerns. Compliance is encouraged with any medications and follow up testing that is ordered. It is a privilege to be allowed the opportunity to participate in? your urological care.? Again, if you have any questions or concerns If you have any questions or concerns please do not hesitate to contact me. The office is [phone]. This note is constructed using voice recognition software. While every effort has been made to ensure accuracy clinique counter manager errors may have been included. Yours sincerely, DAVIDA Goodwin-BC Coding Level of Care Code New Pt Level 3 (26447) Diagnoses Microscopic hematuria R31.29 Marijuana dependence F12.20 CPT Codes Post Residual Void - PVR CPT Code: 48763-Betp Void Residual by ultrasound ([id number])
--- OUTSIDE RECORDS SUMMARY | 2025-03-09 07:59 | XMS_ITS | Encounter Summary ---
Author Organization [facility] Address [address] [place] [address] Care Team Providers Care Packaging Operator Name Role Phone Jaquan Tristan NP Primary Care Provider [phone] Encounter Details Date Type Department Care Team (Late st Contact Info) Description 12/16/2024 Scanned Document [facility] Pul[facility] [place] [address] [place] [phone] Lyle Jerome MD [address] [place] [address] Social History Tobacco Use Types Packs/Day Years [...] on filedocumented in this encounter Care Teams Packaging Operator Relationship Specialty Start Date End Date Jaquan Tristan NP [address] [place] [address] PCP - General Family Medicine 05/21/19 documented as of this encounter
--- OUTSIDE RECORDS SUMMARY | 2025-03-09 07:59 | XMS_ITS | Clinical Summary ---
Author Organization [facility] Address [address] [place] [address] Care Team Providers Care Furrier Designer Name Role Phone Luisito Jha MD Primary Care Provider [phone] Allergies Active Allergy Reactions Criticality Noted Date [...] to complete this topic Insurance [facility] BR[facility] MGD Care Teams Furrier Designer Relationship Specialty Start Date End Date Luisito Jha MD PCP - General Internal Medicine 12/14/17
--- OUTSIDE RECORDS SUMMARY | 2025-03-09 08:00 | XMS_ITS | Encounter Summary ---
Author Organization [facility] Address [address] [place] [address] Care Team Providers Care Drywall Application Supervisor Name Role Phone DamiánJaquan skelton Mata CUNHA Primary Care Provider [phone] Encounter Details Date Type Department Care Team (Late st Contact Info) Description 02/05/2025 Lab Requisition [facility] Main Lab [address] [place] [address] Lawanda Dalton MD [address] [address] Personal history of colon polyps, unspecified Social [...] in 5 fragments 02/06/2025 9:14 AM EST [facility] at 0914 EST Gross Description [...] EM 02/05/25 (Multiple) 02/06/2025 9:14 AM EST [facility] Disclaimer The technical components of this case were performed [address] [id number] 02/06/2025 9:14 AM EST [facility] Tissue Ascending colon structure / Unknown 02/04/2025 02/05/2025 8:41 AM EST [facility] Denilson Dalton MD LAB PATHOLOGY ORDERABL ES Final Result Performing Organization Address City/State/[facility] Co de Phone Number [facility] [address] [place] [address], documented in this encounter Visit Diagnoses Diagnosis Personal history of colon polyps, unspecified documented in this encounter Care Teams Drywall Application Supervisor Relationship Specialty Start Date End Date Jaquan Tristan NP [address] [facility] [place] PCP - General Family Medicine 01/24/22 documented as of this encounter
--- OUTSIDE RECORDS SUMMARY | 2025-03-09 08:00 | XMS_ITS | Clinical Summary ---
Author Organization [facility] Address [address] [place] [address] Phone Care Team Providers Care Surgical First Assistant Name Role Phone DamiánJaquan skelton Mata CUNHA Primary Care Provider Encounters Date Type Department Care Team Description 02/05/2025 Lab Requisition [facility] Main Lab [address] [place] [address] Lawanda Dalton MD Personal history [...] UPPER ENDOSCOPY-EGD; Surgeon: Jerry Sanderson MD; Location: [facility]; Service: Gastroenterology; Laterality: N/A; COLONOSCOPY 01/17/2017 N/A PROCEDURE:COLONOSCOPY;COMMENT :Procedure: COLONOSCOPY; Surgeon: Jerry Sanderson MD; Location: [facility]; Service: Gastroenterology; Laterality: N/A; UPPER GASTROINTESTINAL ENDOSCOPY 11/10/2015 N/A PROCEDURE:UPPER GASTROINTESTINAL ENDOSCOPY;COMMENT:Procedure: UPPER ENDOSCOPY-EGD; Surgeon: Jrery Sanderson MD; Location: [facility]; Service: Gastroenterology; Laterality: N/A; TOTAL KNEE ARTHROPLASTY 02/10/2014 Right PROCEDURE:TOTAL KNEE ARTHROPLASTY;COMMENT:Procedur e: REPLACEMENT TOTAL KNEE; Surgeon: Ambrose Olson MD; Location: [facility]); Service: Orthopedics; Laterality: Right; CATARACT EXTRACTION W/ INTRAOCULAR LENS IMPLANT Left PROCEDURE:CATARACT EXTRACTION W/ INTRAOCULAR LENS IMPLANT COLONOSCOPY 01/24/2022 N/A PROCEDURE:COLONOSCOPY;COMMENT :Procedure: COLONOSCOPY; Surgeon: Isra Alvarado MD; Location: [facility]; Service: Gastroenterology; Laterality: N/A; Medical History [...] on file Sexual Orientation Not on file Plan of Treatment Health Maintenance Due Date [...] in 5 fragments 02/06/2025 9:14 AM EST [facility] at 0914 EST Gross Description [...] EM 02/05/25 (Multiple) 02/06/2025 9:14 AM EST [facility] Disclaimer The technical components of this case [place] [address] CLIA # [id number] 02/06/2025 9:14 AM EST [facility] Tissue Ascending colon structure / Unknown 02/04/2025 02/05/2025 8:41 AM EST [facility] Denilson Dalton MD LAB PATHOLOGY ORDERABL ES Final Result [facility] [address] [place] [id number], from Last 3 Months Insurance [employer] MED[employer]ARE [employer]VANTAGE Care Teams Surgical First Assistant Relationship Specialty Start Date End Date Jaquan Tristan NP [address] [facility] [place] PCP - General Family Medicine 01/24/22
--- OUTSIDE RECORDS SUMMARY | 2025-03-09 08:00 | XMS_ITS | Clinical Summary ---
Author Organization [facility] Address [address] [place] [address] Care Team Providers Care Personal Carer Name Role Phone Jaquan Tristan NP Primary Care Provider Allergies Active Allergy Reactions [...] Type Department Care Team Description 02/04/[address] [facility] [address] [facility] [place] [address] [place] [address] Lawanda Dalton MD 12/16/2024 Scanned Document [facility] Pulmonary [place] [address] [place] [address] Lyle Jerome MD 12/08/2024 11:30 AM EDT Office Visit [address] [place] [phone] Lawanda Dalton MD History of colon polyps [...] COLONOSCOPY (CC) Routine 02/04/2025 2:59 PM EST PATHOLOGY GASTROENTEROLOGY Routine 02/04/2025 10:09 AM EST from Last 3 Months Results * COLONOSCOPY (CC) (02/04/2025 2:59 PM EST) us Law[facility] Dalton MD [facility] PERFORMABLE Final Result * PATHOLOGY GASTROENTEROLOGY (02/04/2025 10:09 AM EST) us Lawanda Dalton MD [facility] HX PATH PROCEDURES Final Res ult from Last 3 Months Insurance [employer] D MEDICARE [place] [id number] [employer] MGD MEDICARE Care Teams Personal Carer Relationship Specialty Start Date End Date Jaquan Tristan NP [address] [place] [address] PCP - General Family Medicine 05/21/19
--- OUTSIDE RECORDS SUMMARY | 2025-03-09 08:00 | XMS_ITS | Clinical Summary ---
Author Organization [facility] Prior to 08/30/[address] [place] [address] Care Team Providers Care Buffer Automatic Name Role Phone Jaquan Tristan Primary Care Provider [phone] Allergies Active Allergy Reactions Criticality Noted Date [...] this topic Medical Devices Implanted Type Area Mechanical Research Engineer Device Identifier Shelf Expiration Date Model / Serial / Lot Samson Weber Vena Cava Filter- 4 Implanted:02/06 by Pilo Zaragoza DO (Quantity not on file) Explanted:(Hood tity not on file) / [id number]- 1_[id number] P / [id number] Cement Simplex P Radiopaque Full Dose Bone - [id number] - [id number] Implanted:Qty: 2 on 02/10/2014 by Ambrose Olson [place] [facility] Right: Knee [employer] 05/13/2016 6191-1-010 / / [id number] Component Triathlon 7 Posterior Stabilized Cemented Femoral - [id number] - [id number] Implanted:Qty: 1 on 02/10/2014 by Ambrose Olson [place] [facility] Right: Knee [employer] 07/11/2018 5515-F-702 / / [id number] Plug Artisan Medium 25mm Plug Bone Cement - [id number] - [id number] Implanted:Qty: 1 on 02/10/2014 by Ambrose Olson MD [place] [facility] Right: Knee [employer] 02/10/2015 [id number] / / [id number] Stem Triathlon 50mm 15mm Cemented Totl Stabilized Cocr - [id number] - [id number] Implanted:Qty: 1 on 02/10/2014 by Ambrose Olson MD [place] [facility] Right: Knee [employer] 08/10/2018 5560-[id number] / / [id number] Baseplate Triathlon 7 Marquette Totl Stabilized Cemented - [id number] - [id number] Implanted:Qty: 1 on 02/10/2014 by Ambrose Olson MD [place] [facility] Right: Knee [employer] 05/13/2018 5521-[id number]-700 / / [id number] Component Patella 36mm Trini 10mm Thick Symmetric Triathlon - [id number] - [id number] Implanted:Qty: 1 on 02/10/2014 by Ambrose Olson MD [place] [facility] Right: Knee [employer] 11/10/2018 5550-[id number]-360 / / [id number] Insert Tibial Articular Posterior Stabilized 11mm Thick Size - [id number] - [id number] Implanted:Qty: 1 on 02/10/2014 by Ambrose Olson MD at [facility] Right: Knee [employer] 02/10/2018 5532-P-711 / / [id number] Advance Directives For more information, please contact: [phone] Documents on File Type Date Recorded Patient Delivery Truck Driver Expl anation Advance Directive and Living Will [...] following way: discussion with patient. Care Teams Buffer Automatic Relationship Specialty Start Date End Date Jaquan Tristan: [phone] [address] [place] [address] PCP - General Family Medicine 01/24/22
== END 2025-03-09 08:31 | disposition home or self-care (01) ==
LOC: HO.HUSH 07:53
PROVIDERS: PCP Nurse Practitioner Family; Visit Provider Nurse Practitioner Family
DX: N40.1 Benign prostatic hyperplasia with lower urinary tract symptoms (principal); N13.8 Other obstructive and reflux uropathy; R31.29 Other microscopic hematuria; F12.20 Cannabis dependence, uncomplicated
CPT/HCPCS: 99203

== ENCOUNTER 2025-03-09 07:52 | Outpatient (REF) | payer MEDICARE, SELFPAY | END 2025-03-09 07:53 | disposition home or self-care (01) | LOC: HO.LAB 07:52 | PROVIDERS: PCP Nurse Practitioner Family; Visit Provider Nurse Practitioner Family | DX: N40.1 Benign prostatic hyperplasia with lower urinary tract symptoms (principal); R31.29 Other microscopic hematuria; N13.8 Other obstructive and reflux uropathy; F12.20 Cannabis dependence, uncomplicated | CPT/HCPCS: 51798; 81003; 88112; 99202 ==

== ENCOUNTER 2025-03-11 13:36 | Outpatient (AMB) | payer MEDICARE, SELFPAY ==
[2025-03-11 13:54] VITALS: BP 110/58; PULSE 52; RESP 16; O2SAT 96; BMI 38.5
--- NOTE | 2025-03-11 13:54 | MHC.PC.OV ---
Vital Signs 03/11/25 13:54 Height 6 ft 2 in Weight 300 lb BMI 38.5 BP 110/58 L Blood Pressure Location Lt brachial Position Sitting Respiration 16 Pulse 52 Pulse Source Pulse Oximeter Pulse Oximetry (%) 96 Oxygen Delivery Method Room Air Intake Visit Reasons: PE Line Manager Required: No Allergies hydrocodone (From Vicodin) Allergy (Unknown, Verified 03/11/25 14:00) rash morphine Allergy (Unknown, Verified 03/11/25 14:00) rash Medication List - Last Reconciled 03/11/[address] [address] allopurinol 200 mg PO DAILY 90 days apixaban (Eliquis) 5 mg PO BID 90 days atorvastatin 20 mg PO BEDTIME carisoprodol (Soma) 350 mg PO BEDTIME PRN 10 days carvedilol (Coreg) 3.125 mg PO BID 90 days cholecalciferol (vitamin D3) 50 mcg PO DAILY 3 months MDD 2000 units dexlansoprazole 60 mg PO QAM hydrochlorothiazide 50 mg PO DAILY irbesartan 150 mg PO DAILY loperamide 2 mg PO QID PRN 20 days magnesium sulfate 100 mg PO DAILY mecobalamin (vitamin B12) 1,000 mcg sublingual BEDTIME 2 months MDD 1 tablet penicillin V potassium 500 mg PO BID polyethylene glycol 3350 (Miralax) 17 grams PO DAILY tramadol 50 mg PO TID PRN Tobacco use date assessed: 03/11/25 Fall risk assessment: No Falls in past year Last assessed Fall Risk: 03/11/25 Dental Screening Dental Screen Date: 03/11/25 Did you have a dental visit in the last 12 months?: Yes Did you have a dental problem in the last 6 months where you did not have access to dental care?: No Was dental information given to patient?: Patient has dentist HPI PE HPI Details History of Present Illness The patient is a 74 year old male presenting for a physical exam. 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 He has chronic lower back pain and will be seeing pain management regarding a possible stimulator in the near future. He is also followed by urology. Health Maintenance The patient appears to be doing well. He will follow up in 6 months. Social History - Substance Use: The patient denies drinking alcohol. - Nutritional Intake: The patient is watching portion sizes for weight loss. Review of Systems - General: Reports feeling well, particularly since losing weight. - Cardiovascular: Denies any symptoms despite being slightly bradycardic. denies any cp, sob, abd pain, blood in stool, constipation, diarrhea, si or hi Physical Exam General: Cooperative, healthy appearing, comfortable, no acute distress and well developed, obese Orientation: Patient oriented x3 Limitations: No limitations Head: Bald scalp Ears: Hearing grossly normal bilaterally Nose: Normal external nose present Face and sinus: Normal facial exam Eyes: Appearance normal, both eyes and all related structures Neck: Normal visual inspection and Yes full ROM Respiratory: Normal respiratory effort and able to speak in complete sentences. Clear to auscultation bilaterally Cardiovascular: Regular rate and rhythm. irregularly irregular GI: Normal to inspection. Soft to palpation and nontender. Umbilical hernia noted : Testicles without masses/lesions and no hernias appreciated Skin: Macular lesions noted throughout scalp. Papillary lesion to the left trap region Neuro: Patient oriented x3 Extremities: Normal to inspection Results - Labs: - Cholesterol: Very impressive. - AST: 39. - Kidney function: Perfect, with a GFR above 60. - PSA: Up to date. - Tests and Diagnostics: - Colon screen: Up to date. Plan 1. Atrial Fibrillation The patient is followed by cardiology for this condition and has a follow-up appointment in the near future. 2. Chronic Lower Back Pain The patient is scheduled to see pain management for a possible stimulator. 3. Obesity The patient is actively losing weight by watching portion sizes. 4. Umbilical Hernia An umbilical hernia was noted on exam. 5. Skin Lesions Macular lesions on the scalp and a papillary lesion on the left trap region were noted. A referral will be placed for a dermatology assessment. Discussion Notes I discussed the lab results with the patient, noting his very impressive cholesterol level. His kidney function is perfect, and his AST is 39, which is reassuring as he does not drink alcohol. I noted the presence of macular lesions on his scalp and a papillary lesion on his left trapezius region and informed him that I will place a referral for him to be assessed by dermatology. Overall, the patient reports feeling well, and he is doing a great job with his weight loss. We will have him follow up in 6 months. Patient Instructions - Continue to watch your portion sizes to help with weight loss. - Keep your follow-up appointment with your heart doctor (Cardiology). - Follow up with the roof cement and paint maker about your chronic low back pain. - We will put in a referral for you to see a skin doctor (Dermatology) for the spots we found on your scalp and back. - Please return to the clinic in 6 months for a follow-up visit. [facility] Medical History Spinal stenosis, lumbar region with neurogenic claudication Essential hypertension Persistent atrial fibrillation Sacroiliac inflammation Aneurysm Dislocation of right shoulder joint Shoulder pain with history of repair of rotator cuff IFG (impaired fasting glucose) MARIE on CPAP Vertigo GERD (gastroesophageal reflux disease) PVD (peripheral vascular disease) Disc degeneration Sacroiliitis Cellulitis of multiple sites of buttock Surgical History History of rotator cuff tear History of vitrectomy History of bilateral carpal tunnel release H/O umbilical hernia repair History of bilateral knee replacement History of bilateral hip replacements Family History Father Leukemia Mother No problems noted. Social History Housing: House Alcohol intake: never Patient Tobacco Use Status: Former Tobacco user Years Smoked: 40 years ago e-Cigarette/Vaping Use: Never Used Second Hand Smoke Exposure: No Substance Use Type: Marijuana service: No Current occupational status: retired Cognitive needs: No Hearing needs: No Vision needs: No Questionnaire PHQ-9 Over the last 2 weeks, how often have you been bothered by any of the following problems? 1. Little interest or pleasure in doing things: more than half the days 2. Feeling down, depressed, or hopeless: not at all 3. Trouble falling or staying asleep, or sleeping too much: not at all 4. Feeling tired or having little energy: not at all 5. Poor appetite or overeating: not at all 6. Feeling bad about yourself - or that you are a failure or have let yourself or your family down: not at all 7. Trouble concentrating on things, such as reading the newspaper or watching television: not at all 8. Moving or speaking so slowly that other people could have noticed. Or the opposite - being so fidgety or restless that you have been moving around a lot more than usual: not at all 9. Thoughts that you would be better off or of hurting yourself in some way: not at all Total score: 2 Depression Screening Interpretation: Negative Depression Screening Done: Yes 32910 - PHQ-9 Billing: Yes Source: Developed by Drs. Ambrose Matthews, Kam Greene and colleagues, with an educational mateo from [employer] Thrive Questionnaire Date Thrive assessed: 01/06/25 NAMRATA-7 AMB Questionnaire NAMRATA-7 Date NAMRATA - 7 assessed: 03/11/25 Feeling nervous, anxious, or on edge: 0 = Not at all Not being able to stop or control worryin = Not at all Worrying too much about different things: 0 = Not at all Trouble relaxin = Not at all Being so restless that it is hard to sit still: 0 = Not at all Becoming easily annoyed or irritable: 0 = Not at all Feeling afraid as if something awful might happen: 0 = Not at all Total NAMRATA-7 score (0-4 normal; 5-9 mild; 10-14 moderate; 15-21 severe): 0 Source: Developed by Drs. Ambrose Matthews, Tonia Doty, Kam Ridley and colleagues, with an educational mateo from [employer] NAMRATA-7 Assessment Billing NAMRATA-7 Assessment Tool: NAMRATA-7 Assessment 86711 Physical exam (Primary Care) Vital Signs: Last Vital Signs Pulse 52 03/11/25 13:54 Resp 16 03/11/25 13:54 BP 110/58 L 03/11/25 13:54 Pulse Ox 96 03/11/25 13:54 Oxygen Delivery Method Room Air 03/11/25 13:54 BMI result Body Mass Index 38.5 Tobacco/Smoking Status: Tobacco use Status Tobacco use date assessed 03/11/25 03/11/25 14:01 Patient Tobacco Use Status Former Tobacco user 03/11/25 14:01 e-Cigarette/Vaping Use Never Used 03/11/25 14:01 PHQ-9: PHQ-9 Score PHQ-9: Total score 2 03/11/25 14:01 Depression Screening Interpretation: Negative Thrive Assessment: Date of Thrive Assessment Date Thrive assessed 01/06/25 03/11/25 14:01 Coding Level of Care Code Est Pt Prev Care >65y(92079) Diagnoses Skin lesions L98.9 Physical exam Z00.00 Additional Codes NAMRATA-7 Assessment Billing - NAMRATA-7 Assessment Tool: NAMRATA-7 Assessment 17871 ([id number]) PHQ-9 - 20697 - PHQ-9 Billing: Yes ([id number]) Assessment & Plan Assessment & Plan (1) Skin lesions: Code(s): L98.9 - Disorder of the skin and subcutaneous tissue, unspecified Category: Medical (2) Physical exam: Code(s): Z00.00 - Encounter for general adult medical examination without abnormal findings Category: Medical Plan . Orders: Referrals Dermatology Referral L98.9 - Disorder of the skin and subcutaneous tissue, unspecified
== END 2025-03-11 15:01 | disposition home or self-care (01) ==
LOC: HO.HMCC 13:36
PROVIDERS: PCP Nurse Practitioner Family; Visit Provider Nurse Practitioner Family
DX: Z00.00 Encounter for general adult medical examination without abnormal findings (principal); L98.9 Disorder of the skin and subcutaneous tissue, unspecified

== ENCOUNTER → 2025-03-11 13:36 | Outpatient (BNVA) | payer MEDICARE, SELFPAY | PROVIDERS: PCP Nurse Practitioner Family; Visit Provider Nurse Practitioner Family | DX: Z00.00 Encounter for general adult medical examination without abnormal findings (principal); L98.9 Disorder of the skin and subcutaneous tissue, unspecified; I48.19 Other persistent atrial fibrillation; M54.50 Low back pain, unspecified; G89.29 Other chronic pain; E66.9 Obesity, unspecified; K42.0 Umbilical hernia with obstruction, without gangrene | CPT/HCPCS: 96127; 99397 ==

== ENCOUNTER 2025-03-16 13:35 | Outpatient (AMB) | payer MEDICARE, SELFPAY ==
--- NOTE | 2025-03-16 13:40 | A.OFFVIS_ITS ---
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 He has a known history of lumbar spinal stenosis with neurogenic claudication. The pain has been chronic for many years, is currently rated at a 5/10 severity, and is worse on the left side than the right. The patient describes the pain as sharp, shooting, and aching, which is exacerbated by walking and standing and relieved by lying down. He completed physical therapy two months ago and has previously received injections at [facility]. The back pain affects his sleep, requiring him to lie on his back in a specific position to find relief. His past medical history is significant for atrial fibrillation, sacroiliac joint arthritis, peripheral vascular disease, lumbar disc degeneration, and obstructive sleep apnea, for which he uses a CPAP machine nightly. He has a surgical history of bilateral knee and hip replacements. He also notes a history of shoulder surgery in 1967 and has ongoing bad shoulders that prevent him from playing golf. An X-ray was performed in July 2024, and an MRI of the lumbar spine in July 2024 showed moderately advanced spondylosis with severe disc degeneration, chronic facet joint arthrosis, and multilevel mild to moderate neuroforaminal stenosis. The imaging also revealed ankylosis at L5-S1 with chronic mild to moderate biforaminal stenosis and moderate to severe degenerative arthritis in the right sacroiliac joint with partial ankylosis. Pain Description - Onset and Duration: The patient reports chronic low back pain that has persisted for many years. - Location: The pain is in the lower back, noted to be worse on the left side compared to the right. - Quality: The pain is described as sharp, shooting, and aching. - Severity: Current pain level is rated 5 out of 10. - Aggravating Factors: Walking and standing make the pain worse. - Relieving Factors: Laying down improves the pain. - Associated Symptoms/Impact: The pain has negatively affected his life, prevents him from walking long distances, and interferes with his sleep. Pain Management - Analgesia: Current pain level is 5/10. He mentions using Aleve in the past when pain was severe. - Activities of Daily Living: The pain has affected his life. He is cautious when picking things up and cannot lift heavy items. He is unable to play golf due to his back and shoulder pain. The pain also prevents him from walking long distances. - Affect: The pain affects his sleep. - Adverse Effects: No adverse effects from medications were discussed. - Aberrant Drug Related Behaviors: No aberrant drug-related behaviors were reported. Oswestry Low Back Pain Disability Score=21 [facility] Medical History Spinal stenosis, lumbar region with neurogenic claudication Essential hypertension Persistent atrial fibrillation Sacroiliac inflammation Aneurysm Dislocation of right shoulder joint Shoulder pain with history of repair of rotator cuff IFG (impaired fasting glucose) MARIE on CPAP Vertigo GERD (gastroesophageal reflux disease) PVD (peripheral vascular disease) Disc degeneration Sacroiliitis Cellulitis of multiple sites of buttock Surgical History History of rotator cuff tear History of vitrectomy History of bilateral carpal tunnel release H/O umbilical hernia repair History of bilateral knee replacement History of bilateral hip replacements Family History Father Leukemia Mother No problems noted. Social History Housing: House Alcohol intake: never Patient Tobacco Use Status: Former Tobacco user Years Smoked: 40 years ago e-Cigarette/Vaping Use: Never Used Second Hand Smoke Exposure: No Substance Use Type: Marijuana service: No Current occupational status: retired Cognitive needs: No Hearing needs: No Vision needs: No Review of Systems Narrative - Musculoskeletal: Reports chronic low back pain, worse on the left, described as sharp, shooting, and aching. Reports pain is exacerbated by walking and standing, and relieved by lying down. Reports bad shoulders, which prevent him from playing golf. - Neurological: Reports symptoms of neurogenic claudication. Denies leg pain, but states back pain prevents him from walking far. - Respiratory: Reports diagnosis of obstructive sleep apnea and uses a CPAP machine every night. - Constitutional: Reports that back pain affects sleep. Const All systems reviewed & are unremarkable except as noted in HPI and below Physical Exam Vital Signs: Last Vital Signs Pulse 83 03/16/25 13:45 BP 137/76 03/16/25 13:45 Pulse Ox 98 03/16/25 13:45 Oxygen Delivery Method Room Air 03/16/25 13:45 BMI result Body Mass Index 37.1 General: Appears afebrile. Alert and oriented. Mood and affect appropriate. Follows and participates in conversation appropriately. Respiratory effort is unlabored. No cough. Able to transition from sit to stand unassisted. Antalgic gait, mild limping. Ambulates with bilaterally normal heel strike and toe off. General: Yes no CVA tenderness Back/Spine/Pelvis Other: Limited lumbar ROM due to pain. Lumbar extension and flexion reproduces moderate pain. Demonstrates 5/5 right and 4/5 left strength of quadriceps bilaterally as well as flexion/dorsiflexion of bilateral feet against resistance. 2+ pedal pulses bilaterally. Straight leg rise with dorsiflexion negative bilaterally. Diminished patellar and achilles reflexes bilaterally. Facet loading test positive bilaterally. Duong?s and Stinchfield tests are negative bilaterally. No groin pain with I/E hip rotations. Valsalva maneuver negative. Back: no CVA tenderness Cervical Spine: cervical ROM normal, cervical muscular tenderness and No Cervical spine tenderness Thoracic/Lumbar Spine: thoracic and lumbar spine normal to inspection, No Thoracic/lumbar spine scar(s), Lasegue's sign negative, straight leg raise negative bilaterally, pain with thoraco-lumbar ROM, thoraco-lumbar ROM limited, No thoracic spinal tenderness and lumbar spinal tenderness at L4 and at L5 Sacroiliac joints: bilaterally nontender Extrem General: Yes capillary refill normal, Yes no clubbing, cyanosis or edema and Yes no calf tenderness Results Reviewed Results Reviewed: XR SACROILIAC JOINTS 07/28/24 CLINICAL INFORMATION: M46.1 - Sacroiliitis, not elsewhere classified COMPARISON: None available. TECHNIQUE: 3 views of the sacroiliac joints FINDINGS: The sacrum is intact. The sacral arches appear normal. No bone lesions. Severe degenerative changes in the lower lumbar spine. Moderate to severe right and moderate left degenerative arthritis in the SI joints. 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 There are bilateral inferior osteophytic spurs. There are no erosions or definite evidence of inflammatory arthropathy. There are bilateral hip arthroplasties, without definite complication evident. No soft tissue abnormalities. IMPRESSION: Moderate to severe right greater than left degenerative arthritis in the SI joints with partial ankylosis on the right. MRI LUMBAR SPINE WITHOUT CONTRAST 08/07/24 CLINICAL INFORMATION: Chronic low back pain. Evaluation for spinal stenosis and neural impingement. TECHNICAL INFORMATION: 1. Sagittal and axial T1. 2. Sagittal and axial T2. 3. Sagittal STIR. SEDATION: None. COMPARISON: Lumbar spine MRI 05/20/2020 INTERPRETATION: The conus shows normal tapering and ends at L1-2. Included cord has normal internal signal and cauda equina is unremarkable. No spinal canal collections or intradural masses. Advancing disc degeneration and new L2-3, more chronic and stable L5-S1 retrolistheses. Worsened type I discogenic reaction at L1-2. Preserved vertebral body heights and no compression deformities. Multilevel and pronounced anterior discosteophytosis again seen. Increased intradiscal T1, T2 signal at T10-11 and T11-12 consistent with either fibrosis or intradiscal mineralization. L5-S1: Chronic severe disc degeneration with retrolisthesis but widely patent spinal canal. Neural foramina show mild-moderate narrowing greater left. No transiting or exiting nerve root compression. L4-5: Chronic moderate disc degeneration with posterior bulge, ligamentous hypertrophy and somewhat worsened, moderate bilateral facet joint arthrosis demonstrate small effusions. Subarticular recesses severely narrowed, greater to the left with mild-moderate biforaminal stenoses. Exiting L4 nerves approached without compression. L3-4: Chronic moderate disc degeneration with posterior bulge, segment is hypertrophy and mild-moderate facet joint arthrosis resulting in mild spinal canal and biforaminal narrowing. No neural compression. 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 L2-3: Progressively severe disc degeneration, new retrolisthesis, endplate osteophytic ridging and mild bilateral facet joint arthrosis greater left. Subarticular recesses narrowed with transiting L3 nerves encroached upon. Mild biforaminal stenoses. Degenerative apposition of spinous processes. L1-2: Moderate disc degeneration with increasing Modic I discogenic reaction and new 4-5 mm left subarticular protrusion compounded by ligamentous hypertrophy and mild facet joint arthrosis. Transiting left L2 nerve abutted. Overall mild spinal canal and biforaminal narrowing. Degenerative apposition of spinous processes. T12-L1: Mild disc degeneration with prominent right anterolateral discosteophyte. No posterior disc contour abnormality or significant spinal canal narrowing. Mild facet joint overgrowth. No prevertebral/paraspinous soft tissue masses or collections. Mild atrophic changes present throughout the dorsal musculature. Included pelvis intact. CONCLUSION: Moderately advanced spondylosis, pertinent features as follows: 1. L2-3, progressively severe disc degeneration with new retrolisthesis, chronic facet joint arthrosis and narrowed subarticular recesses. Transiting L3 nerves encroached upon. 2. L3-4 and L4-5, chronic moderate disc degeneration with worsening L4-5 facet joint arthrosis with greater left than right transiting L5 nerve encroachment. Mild-moderate L4-5, more mild L3-4 neural foraminal stenoses. 3. L1-2, new 4-5 mm left subarticular disc protrusion compounded by facet overgrowth. Transiting left L2 nerve abutted. 4. L5-S1, ankylosis with chronic mild-moderate biforaminal stenoses. XR LUMBOSACRAL SPINE 09/28/21 CLINICAL INFORMATION: Muscle spasm. COMPARISON: None TECHNIQUE: 3 views of the lumbosacral spine. FINDINGS: There is normal lumbar lordosis. The vertebral heights and alignment are normal. There is loss of disc height with moderate ventral bridging osteophytes virtually at every lumbar disc level. No acute fracture or lytic process seen. There are bilateral total hip prosthesis. SI joints are symmetrical. There is an anterior abdominal wall hernia repair with mesh in place. IMPRESSION: Degenerative disc changes with ventral spondylosis at all lumbar disc levels. Assessment & Plan Assessment & Plan (1) Spinal stenosis, lumbar region with neurogenic claudication: Code(s): M48.062 - Spinal stenosis, lumbar region with neurogenic claudication Category: Medical (2) Lumbar degenerative disc disease: Code(s): M51.369 - Other intervertebral disc degeneration, lumbar region without mention of lumbar back pain or lower extremity pain Category: Medical (3) Chronic radicular pain of lower back: Code(s): M54.16 - Radiculopathy, lumbar region; G89.29 - Other chronic pain Category: Medical (4) Lumbosacral spondylosis: Code(s): M47.817 - Spondylosis without myelopathy or radiculopathy, lumbosacral region Category: Medical (5) Sacroiliac joint pain: Code(s): M53.3 - Sacrococcygeal disorders, not elsewhere classified Category: Medical Plan The patient's chronic low back pain is secondary to severe degenerative changes including spinal stenosis, spondylosis, and sacroiliac joint arthritis with ankylosis. Given his interest in neuromodulation and the difficulty of performing injections due to ankylosis at L5-S1 and the SI joints, a multi-step evaluation for spinal cord stimulation (SCS) will be initiated. Extensive discussion regarding the risks and benefits of SCS trial and implant procedures and all questions were answered to patient satisfaction. The patient will undergo Neurosurgical evaluation to assess any surgical candidacy. A medical release will be obtained to get records from [facility]. The decision to proceed with SCS will be made after Neurosurgical and behavioral evaluations are complete. All questions and concerns have been answered and patient agreed with the treatment plan. Follow up after Neurosurgery evaluation and sooner as needed. Patient was informed and verbally consented to the use of an ambient scribe for clinic note documentation during this visit. Orders: Referrals Neuro Spine Referral M48.062 - Spinal stenosis, lumbar region with neurogenic claudication, M51.369 - Other intervertebral disc degeneration, lumbar region without mention of lumbar back pain or lower extremity pain Coding Level of Care Code New Pt Level 4 (04725) Diagnoses Spinal stenosis, lumbar region with neurogenic claudication M48.062 Lumbar degenerative disc disease M51.369 Chronic radicular pain of lower back M54.16; G89.29 Lumbosacral spondylosis M47.817 Sacroiliac joint pain M53.3
[2025-03-16 13:45] VITALS: BP 137/76; PULSE 83; O2SAT 98; BMI 37.1
--- OUTSIDE RECORDS SUMMARY | 2025-03-16 19:47 | XMS_ITS | Encounter Summary ---
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 Name Role Phone Jaquan Tristan NP Primary Care Provider [phone] Encounter Details Date Type Department Care Team (Late st Contact Info) Description 12/16/2024 Scanned Document [facility] [place] [address] [place] [id number] Lyle Jerome MD [address] [place] [address] Social History Tobacco Use Types Packs/Day Years [...] on filedocumented in this encounter Care Teams Surface Plate Finisher Relationship Specialty Start Date End Date Jaquan Tristan NP [address] [place] [address] PCP - General Family Medicine 05/21/19 documented as of this encounter
--- OUTSIDE RECORDS SUMMARY | 2025-03-16 19:47 | XMS_ITS | Clinical Summary ---
Author Organization [facility] Services Address [address] [place] [address] Phone Care Team Providers Care Split And Drum Room Supervisor Name Role Phone DamiánJaquan skelton Mata CUNHA Primary Care Provider [phone] Encounters Date Type Department Care Team Description 02/05/2025 Lab Requisition [facility] Main Lab [address] [place] [address] Lawanda Dalton MD Personal history [...] UPPER ENDOSCOPY-EGD; Surgeon: Jerry Sanderson MD; Location: [facility]; Service: Gastroenterology; Laterality: N/A; COLONOSCOPY 01/17/2017 N/A PROCEDURE:COLONOSCOPY;COMMENT :Procedure: COLONOSCOPY; Surgeon: Jerry Sanderson MD; Location: [facility]; Service: Gastroenterology; Laterality: N/A; UPPER GASTROINTESTINAL ENDOSCOPY 11/10/2015 N/A PROCEDURE:UPPER GASTROINTESTINAL ENDOSCOPY;COMMENT:Procedure: UPPER ENDOSCOPY-EGD; Surgeon: Jerry Sanderson MD; Location: [facility]; Service: Gastroenterology; Laterality: N/A; TOTAL KNEE ARTHROPLASTY 02/10/2014 Right PROCEDURE:TOTAL KNEE ARTHROPLASTY;COMMENT:Procedur e: REPLACEMENT TOTAL KNEE; Surgeon: Ambrose Olson MD; Location: [facility]); Service: Orthopedics; Laterality: Right; CATARACT EXTRACTION W/ INTRAOCULAR LENS IMPLANT Left PROCEDURE:CATARACT EXTRACTION W/ INTRAOCULAR LENS IMPLANT COLONOSCOPY 01/24/2022 N/A PROCEDURE:COLONOSCOPY;COMMENT :Procedure: COLONOSCOPY; Surgeon: Isra Alvarado MD; Location: [facility]; Service: Gastroenterology; Laterality: [...] in 5 fragments 02/06/2025 9:14 AM EST [facility] ([facility]) HOSPITAL LAB at 0914 EST [...] EM 02/05/25 (Multiple) 02/06/2025 9:14 AM EST [facility] Disclaimer The technical components [place] [address] CLIA # [id number] 02/06/2025 9:14 AM EST [facility] Tissue Ascending colon structure / Unknown 02/04/2025 02/05/2025 8:41 AM EST [facility] Denilson Dalton MD LAB PATHOLOGY ORDERABL ES Final Result [facility] [address] [place] [phone], from Last 3 Months Insurance [employer] MEDICARE ADVANTAGE Care Teams Split And Drum Room Supervisor Relationship Specialty Start Date End Date Jaquan Tristan NP [address] [facility] [place] PCP - General Family Medicine 01/24/22
--- OUTSIDE RECORDS SUMMARY | 2025-03-16 19:47 | XMS_ITS | Clinical Summary ---
Author Organization [facility] Prior to 08/30/[address] [place] [address] Care Team Providers Care Core Filer Name Role Phone Jaquan Tristan Primary Care Provider [phone] Allergies Active Allergy Reactions Criticality Noted Date [...] this topic Medical Devices Implanted Type Area Hospital Admissions Clerk Device Identifier Shelf Expiration Date Model / Serial / Lot Samson Weber Vena Cava Filter- 4 Implanted:02/06 by Pilo Zaragoza DO (Quantity not on file) Explanted:(Hood tity not on file) / IGTCFS-65- 1_JUG-TULI P / [id number] Cement Simplex P Radiopaque Full Dose Bone - [id number] - [id number] Implanted:Qty: 2 on 02/10/2014 by Ambrose Olson MD [facility] Right: Knee [employer] 05/13/2016 6191-1-010 / / [id number] Component Triathlon 7 Posterior Stabilized Cemented Femoral - 714342 - [id number] Implanted:Qty: 1 on 02/10/2014 by Ambrose Olson MD at [facility] Right: Knee [employer] 07/11/2018 5515-F-702 / / [id number] Plug Artisan Medium 25mm Plug Bone Cement - [id number] - [id number] Implanted:Qty: 1 on 02/10/2014 by Ambrose Olson MD at [facility] Right: Knee [employer] [facility] 02/10/2015 6215-5-011 / / [id number] Stem Triathlon 50mm 15mm Cemented Totl Stabilized Cocr - 676074 - [id number] Implanted:Qty: 1 on 02/10/2014 by Ambrose Olson MD at [facility] Right: Knee [employer] 08/10/2018 5560-S-115 / / [id number] Baseplate Triathlon 7 [place] Totl Stabilized Cemented - 028692 - [id number] Implanted:Qty: 1 on 02/10/2014 by Ambrose Olson MD at [facility] Right: Knee [employer] 05/13/2018 5521-B-700 / / [id number] Component Patella 36mm Trini 10mm Thick Symmetric Triathlon - [id number] - [id number] Implanted:Qty: 1 on 02/10/2014 by Ambrose Olson MD at [facility] Right: Knee [employer] [facility] 11/10/2018 5550-L-360 / / [id number] Insert Tibial Articular Posterior Stabilized 11mm Thick Size - 889025 - [id number] Implanted:Qty: 1 on 02/10/2014 by Ambrose Olson MD at [facility] Right: Knee [employer] [facility] 02/10/2018 5532-P-711 / / [id number] Advance Directives For more information, please contact: [phone] Documents on File Type Date Recorded Patient Diver'S Tender Expl anation Advance Directive and Living Will [...] following way: discussion with patient. Care Teams Core Filer Relationship Specialty Start Date End Date Jaquan Tristan: [phone] [address] [facility] [place] [address] PCP - General Family Medicine 01/24/22
--- OUTSIDE RECORDS SUMMARY | 2025-03-16 19:47 | XMS_ITS | Encounter Summary ---
Author Organization [facility] Address [address] [place] [address] Care Team Providers Care Career Development Associate Name Role Phone DamiánJaquan skelton Mata CUNHA Primary Care Provider Encounter Details Date Type Department Care Team (Late st Contact Info) Description 02/05/2025 Lab Requisition [facility] Main Lab [address] [place] [address] Lawanda Dalton MD [address] [address] Personal history of colon polyps, unspecified Social [...] in 5 fragments 02/06/2025 9:14 AM EST [facility] LAB at 0914 EST Gross Description [...] EM 02/05/25 (Multiple) 02/06/2025 9:14 AM EST [facility] Disclaimer The technical components of this case were performed [address] [id number] 02/06/2025 9:14 AM EST [facility] Tissue Ascending colon structure / Unknown 02/04/2025 02/05/2025 8:41 AM EST [facility] Denilson Dalton MD LAB PATHOLOGY ORDERABL ES Final Result Performing Organization Address City/State/[facility] Co de Phone Number [facility] [address] [place] [address], documented in this encounter Visit Diagnoses Diagnosis Personal history of colon polyps, unspecified documented in this encounter Care Teams Career Development Associate Relationship Specialty Start Date End Date Jaquan Tristan NP [address] [facility] [place] PCP - General Family Medicine 01/24/22 documented as of this encounter
--- OUTSIDE RECORDS SUMMARY | 2025-03-16 19:47 | XMS_ITS | Clinical Summary ---
Author Organization [facility] Address [address] [place] [address] Care Team Providers Care Lozenge Maker Name Role Phone Jaquan Tristan NP Primary [...] Type Department Care Team Description 02/04/2025 Documentation [facility] [address] [facility] [place] [place] [phone] Lawanda Dalton MD 12/16/2024 Scanned Document [facility] Pul[facility] [place] [address] [place] [phone] Lyle Jerome MD from Last 3 Months Immunizations Immunization Administration [...] Name Status Comments Father Wilmer Alive Mother Valeda Alive Social History Tobacco Use Types Packs/Day [...] 2:59 PM EST) us Lawanda Dalton MD AMB ORDERABLE PERFORMABLE Final Result * PATHOLOGY GASTROENTEROLOGY (02/04/2025 10:09 AM EST) us [facility] HX PATH PROCEDURES Final Res ult from Last 3 Months Insurance BREN Maday MEDICARE BREN Maday MEDICARE Care Teams Lozenge Maker Relationship Specialty Start Date End Date Jaquan Tristan NP [address] [place] [address] PCP - General Family Medicine 05/21/19
--- OUTSIDE RECORDS SUMMARY | 2025-03-16 19:47 | XMS_ITS | Clinical Summary ---
Author Organization [facility] Address [address] [place] [address] Care Team Providers Care Forest Botany Instructor Name Role Phone Luisito Jha MD Primary Care Provider [phone] Allergies Active Allergy Reactions Criticality Noted Date [...] to complete this topic Insurance BREN PEGUERO [facility] BREN PEGUERO [facility] BREN PEGUERO [facility] MGD Care Teams Forest Botany Instructor Relationship Specialty Start Date End Date Luisito Jha MD PCP - General Internal Medicine 12/14/17
== END 2025-03-16 14:27 | disposition home or self-care (01) ==
LOC: HO.PMC 13:36
PROVIDERS: PCP Nurse Practitioner Family; Visit Provider Nurse Practitioner Family
DX: M48.062 Spinal stenosis, lumbar region with neurogenic claudication (principal); M51.369 Other intervertebral disc degeneration, lumbar region without mention of lumbar back pain or lower extremity pain; M54.16 Radiculopathy, lumbar region; G89.29 Other chronic pain; M47.817 Spondylosis without myelopathy or radiculopathy, lumbosacral region; M53.3 Sacrococcygeal disorders, not elsewhere classified
CPT/HCPCS: 99204

== ENCOUNTER → 2025-03-16 13:35 | Outpatient (BNVA) | payer MEDICARE, SELFPAY | PROVIDERS: PCP Nurse Practitioner Family; Visit Provider Nurse Practitioner Family | DX: G89.29 Other chronic pain (principal); M48.062 Spinal stenosis, lumbar region with neurogenic claudication; M51.16 Intervertebral disc disorders with radiculopathy, lumbar region; M47.26 Other spondylosis with radiculopathy, lumbar region; M53.3 Sacrococcygeal disorders, not elsewhere classified | CPT/HCPCS: 99202 ==

== ENCOUNTER → 2025-03-18 15:07 | Outpatient (REF) | payer MEDICARE, SELFPAY ==
--- OUTSIDE RECORDS SUMMARY | 2025-03-18 20:03 | XMS_ITS | Clinical Summary ---
Author Organization [facility] Address [address] [place] [address] Care Team Providers Care Tar Boiler Name Role Phone Jaquan Tristan NP Primary Care Provider [phone] Allergies Active Allergy Reactions Criticality Noted Date [...] Department Care Team Description 02/04/2025 Documentation [facility] [address] [facility] [place] [address] Lawanda Dalton MD from Last 3 Months Immunizations Immunization [...] Name Status Comments Father Wilmer Alive Mother Valramiro Alive Social History Tobacco Use Types Packs/Day [...] 10:09 AM EST) us Lawanda Dalton MD [facility] HX PATH PROCEDURES Final Res ult from Last [address] [facility] MEDICARE BREN Maday MEDICARE Care Teams Tar Boiler Relationship Specialty Start Date End Date Jaquan Tristan, TOPPER PRESS OPERATOR AUTOMATIC [address] [place] [address] PCP - General Family Medicine 05/21/19
--- OUTSIDE RECORDS SUMMARY | 2025-03-18 20:03 | XMS_ITS | Clinical Summary ---
Author Organization [facility] Address [address] [place] [address] Care Team Providers Care Pediatric Assistant Name Role Phone Luisito Jha MD Primary Care Provider [phone] Allergies Active Allergy Reactions Criticality Noted Date [...] to complete this topic Insurance BREN PEGUERO [facility] BREN PEGUERO [facility] BREN PEGUERO [facility] MGD Care Teams Pediatric Assistant Relationship Specialty Start Date End Date Luisito Jha MD PCP - General Internal Medicine 12/14/17
--- OUTSIDE RECORDS SUMMARY | 2025-03-18 20:04 | XMS_ITS | Clinical Summary ---
Author Organization [facility] Services Address [address] [place] [address] Phone Care Team Providers Care Plate Grinder Name Role Phone DamiánJaquan skelton Mata CUNHA Primary Care Provider Encounters Date Type Department Care Team Description 02/05/2025 Lab Requisition [facility] Main Lab [address] [place] [address] Lawanda Dalton MD Personal history [...] UPPER ENDOSCOPY-EGD; Surgeon: Jerry Sanderson MD; Location: [facility]; Service: Gastroenterology; Laterality: N/A; COLONOSCOPY 01/17/2017 N/A PROCEDURE:COLONOSCOPY;COMMENT :Procedure: COLONOSCOPY; Surgeon: Jerry Sanderson MD; Location: [facility]; Service: Gastroenterology; Laterality: N/A; UPPER GASTROINTESTINAL ENDOSCOPY 11/10/2015 N/A PROCEDURE:UPPER GASTROINTESTINAL ENDOSCOPY;COMMENT:Procedure: UPPER ENDOSCOPY-EGD; Surgeon: Jerry Sanderson MD; Location: [facility]; Service: Gastroenterology; Laterality: N/A; TOTAL KNEE ARTHROPLASTY 02/10/2014 Right PROCEDURE:TOTAL KNEE ARTHROPLASTY;COMMENT:Procedur e: REPLACEMENT TOTAL KNEE; Surgeon: Ambrose Olson MD; [facility]); Service: Orthopedics; Laterality: Right; CATARACT EXTRACTION W/ INTRAOCULAR LENS IMPLANT Left PROCEDURE:CATARACT EXTRACTION W/ INTRAOCULAR LENS IMPLANT COLONOSCOPY 01/24/2022 N/A PROCEDURE:COLONOSCOPY;COMMENT :Procedure: COLONOSCOPY; Surgeon: Isra Alvarado MD; Location: [facility]; Service: Gastroenterology; [...] in 5 fragments 02/06/2025 9:14 AM EST [facility] HOSPITAL LAB at 0914 EST Gross [...] EM 02/05/25 (Multiple) 02/06/2025 9:14 AM EST [facility] Disclaimer The technical components of [place] [address] CLIA # [id number] 02/06/2025 9:14 AM EST [facility] Tissue Ascending colon structure / Unknown 02/04/2025 02/05/2025 8:41 AM EST [facility] Denilson Dalton MD LAB PATHOLOGY ORDERABL ES Final Result [facility] [address] [place] [phone], from Last 3 Months Insurance [employer] MEDICARE ADVANTAGE Care Teams Plate Grinder Relationship Specialty Start Date End Date Jaquan Tristan NP 262 [facility] [place] PCP - General Family Medicine 01/24/22
--- OUTSIDE RECORDS SUMMARY | 2025-03-18 20:04 | XMS_ITS | Encounter Summary ---
Author Organization [facility] Address [address] [place] [address] Care Team Providers Care Systems Software Developer Name Role Phone Jaquan Tristan NP Primary Care Provider [phone] Encounter Details Date Type Department Care Team (Late st Contact Info) Description 12/16/[address] [facility] Pulmonary [place] [address] [place] [phone] Lyle Jerome MD [address] [place] [address] Social History Tobacco Use Types Packs/Day Years [...] on filedocumented in this encounter Care Teams Systems Software Developer Relationship Specialty Start Date End Date Jaquan Tristan NP [address] [place] [address] PCP - General Family Medicine 05/21/19 documented as of this encounter
--- OUTSIDE RECORDS SUMMARY | 2025-03-18 20:04 | XMS_ITS | Encounter Summary ---
Author Organization [facility] Address [address] [place] [address] Care Team Providers Care Data Warehousing Engineer Name Role Phone DamiánJaquan skelton Mata CUNHA Primary Care Provider Encounter Details Date Type Department Care Team (Late st Contact Info) Description 02/05/2025 Lab Requisition [facility] Main Lab [address] [place] [address] Lawanda Dalton MD [address] [address] Personal history of colon polyps, unspecified Social [...] in 5 fragments 02/06/2025 9:14 AM EST [facility] at 0914 EST Gross Description [...] EM 02/05/25 (Multiple) 02/06/2025 9:14 AM EST [facility] Disclaimer The technical components of this case were performed [address] # [id number] 02/06/2025 9:14 AM EST [facility] Tissue Ascending colon structure / Unknown 02/04/2025 02/05/2025 8:41 AM EST [facility] Denilson Dalton MD LAB PATHOLOGY ORDERABL ES Final Result Performing Organization Address City/State/[facility] Co de Phone Number [facility] [address] [place] [address], documented in this encounter Visit Diagnoses Diagnosis Personal history of colon polyps, unspecified documented in this encounter Care Teams Data Warehousing Engineer Relationship Specialty Start Date End Date Jaquan Tristan NP 262 [facility] [place] PCP - General Family Medicine 01/24/22 documented as of this encounter
--- OUTSIDE RECORDS SUMMARY | 2025-03-18 20:04 | XMS_ITS | Clinical Summary ---
Author Organization [facility] Prior to 08/30/[address] [place] [address] Care Team Providers Care Tread Builder Name Role Phone Jaquan Tristan Primary Care Provider [phone] Allergies Active Allergy Reactions Criticality Noted Date [...] this topic Medical Devices Implanted Type Area Software Support Technician Device Identifier Shelf Expiration Date Model / Serial / Lot Samson Weber Vena Cava Filter- 4 Implanted:02/06 by Pilo Zaragoza DO (Quantity not on file) Explanted:(Hood tity not on file) / IGTCFS-65- 1_JUG-TULI P / [id number] Cement Simplex P Radiopaque Full Dose Bone - 540844 - [id number] Implanted:Qty: 2 on 02/10/2014 by Ambrose Olson [place] [facility] Right: Knee [employer] 05/13/2016 6191-1-010 / / [id number] Component Triathlon 7 Posterior Stabilized Cemented Femoral - 657683 - [id number] Implanted:Qty: 1 on 02/10/2014 by Ambrose Olson MD [place] [facility] Right: Knee [employer] 07/11/2018 5515-F-702 / / [id number] Plug Artisan Medium 25mm Plug Bone Cement - 556045 - [id number] Implanted:Qty: 1 on 02/10/2014 by Ambrose Olson MD [place] [facility] Right: Knee [employer] 02/10/2015 6215-5-011 / / [id number] Stem Triathlon 50mm 15mm Cemented Totl Stabilized Cocr - 536184 - [id number] Implanted:Qty: 1 on 02/10/2014 by Ambrose Olson MD [place] [facility] Right: Knee [employer] 08/10/2018 5560-S-115 / / [id number] Baseplate Triathlon 7 [place] Totl Stabilized Cemented - 133299 - [id number] Implanted:Qty: 1 on 02/10/2014 by Ambrose Olson MD [place] [facility] Right: Knee [employer] 05/13/2018 5521-B-700 / / [id number] Component Patella 36mm Trini 10mm Thick Symmetric Triathlon - 207293 - [id number] Implanted:Qty: 1 on 02/10/2014 by Ambrose Olson [place] [facility] [place] Knee [employer] 11/10/2018 5550-L-360 / / [id number] Insert Tibial Articular Posterior Stabilized 11mm Thick Size - 356343 - [id number] Implanted:Qty: 1 on 02/10/2014 by Ambrose Olson [place] [facility] [place]: Knee [facility] 02/10/2018 5532-P-711 / / [id number] Advance Directives For more information, please contact: [phone] Documents on File Type Date Recorded Patient Housekeeping Room Attendant Expl anation Advance Directive and Living Will [...] following way: discussion with patient. Care Teams Tread Builder Relationship Specialty Start Date End Date Jaquan Tristan: [phone] [address] [facility] [place] [address] PCP - General Family Medicine 01/24/22
== END ==
LOC: HO.SL 15:07
PROVIDERS: PCP Nurse Practitioner Family; Visit Provider Physician Assistant Medical
DX: G47.33 Obstructive sleep apnea (adult) (pediatric) (principal); G47.19 Other hypersomnia; R06.83 Snoring; R40.0 Somnolence
CPT/HCPCS: 95806

== ENCOUNTER 2025-03-27 12:38 | Outpatient (AMB) | payer MEDICARE, SELFPAY ==
--- OUTSIDE RECORDS SUMMARY | 2025-03-27 12:42 | XMS_ITS | Encounter Summary ---
Author Organization [facility] Address [address] [place] [address] Care Team Providers Care Stock Roller Name Role Phone DamiánJaquan skelton Mata CUNHA Primary Care Provider Encounter Details Date Type Department Care Team (Late st Contact Info) Description 02/05/2025 Lab Requisition [facility] Main Lab [address] [place] [address] Lawanda Dalton MD [address] [address] Personal history of colon polyps, unspecified Social [...] 9:14 AM EST [facility] ([facility] at 0914 EST Gross Description [...] EM 02/05/25 (Multiple) 02/06/2025 9:14 AM EST [facility] Disclaimer The technical components of this case were performed at [address] # [id number] 02/06/2025 9:14 AM EST [facility] Tissue Ascending colon structure / Unknown 02/04/2025 02/05/2025 8:41 AM EST [facility] Denilson Dalton MD LAB PATHOLOGY ORDERABL ES Final Result Performing Organization Address City/State/[facility] Co de Phone Number [facility] [address] [place] [address], documented in this encounter Visit Diagnoses Diagnosis Personal history of colon polyps, unspecified documented in this encounter Care Teams Stock Roller Relationship Specialty Start Date End Date Jaquan Tristan NP [address] [facility] [place] PCP - General Family Medicine 01/24/22 documented as of this encounter
--- OUTSIDE RECORDS SUMMARY | 2025-03-27 12:42 | XMS_ITS | Clinical Summary ---
Author Organization [facility] Address [address] [place] [address] Care Team Providers Care Coal Carrier Name Role Phone Luisito Jha MD Primary Care Provider [phone] Allergies Active Allergy Reactions Criticality Noted Date [...] to complete this topic Insurance BREN PEGUERO [facility] BREN PEGUERO [facility] BREN PEGUERO [facility] MGD Care Teams Coal Carrier Relationship Specialty Start Date End Date Luisito Jha MD PCP - General Internal Medicine 12/14/17
--- OUTSIDE RECORDS SUMMARY | 2025-03-27 12:42 | XMS_ITS | Clinical Summary ---
Author Organization Joann Ar[facility] Address [address] [place] [address] Care Team Providers Care Nutritionalist Name Role Phone Damiáncosta Jaquan Fernandes SOFTWARE PROJECT LEAD Primary Care Provider + Allergies Active Allergy Reactions Criticality Noted Date Comments For Nausea Other (See Comments) 02/05/2014 diaphortic hallucinations Hydrocodone-Acetami nophen Other (See Comments),Hives,Francois h High 02/05/2014 Morphine Hallucinations,Rash ,Other (See Comments) Medium 12/18/2017 Medications allopurinoL 200 mg Tab TAKE 1 TABLET (200 MG) ORALLY DAILY FOR 30 DAYS 5 Active ELIQUIS 5 mg Tab Take 1 tablet (5 mg total) by mouth in the morning and 1 tablet (5 mg total) before bedtime. Active atorvaSTATin (LIPITOR) 20 MG tablet Take 1 tablet (20 mg total) by mouth at bedtime. 5 Active cholecalciferol , vitamin D3, (VITAMIN D3) 50 mcg (2,000 unit) cap TAKE 1 CAPSULE (2000 UNITS) BY MOUTH EVERY DAY X 3 MONTHS MAXIMUM DAILY DOSE 2000 UNITS 5 Active cyanocobalamin, vitamin B-12, 1,[address] TABLET UNDER TONGUE AND ALLOW TO DISSOLVE FOR AT LEAST 30 SECONDS BEFORE SWALLOWING AT BEDTIME 5 Active dexlansoprazole (DEXILANT) 60 mg capsule TAKE 1 CAPSULE BY MOUTH EVERY DAY IN THE MORNING BEFORE BREAKFAST Active hydroCHLOROthia zide (HYDRODIURIL) 50 MG tablet Take 1 tablet (50 mg total) by mouth in the morning. Active irbesartan (AVAPRO) 150 MG tablet Take 1 tablet (150 mg total) by mouth every morning. 2 Active penicillin v potassium (VEETID) 500 MG tablet Take 1 tablet (500 mg total) by mouth in the morning and 1 tablet (500 mg total) before bedtime. Active rifAXIMin (XIFAXAN) 550 mg tablet Take 1 tablet (550 mg total) by mouth. 4 Active SUTAB 1.479-0.188- 0.225 gram Tab and refer to additional instructions. Please see attached for detailed directions. 5 Active tiZANidine (ZANAFLEX) 4 MG tablet 5 Active traMADoL (ULTRAM) 50 mg tablet TAKE 1 TABLET BY MOUTH THREE TIMES A DAY NEEDED FOR PAIN 5 Active Active Problems Problem Noted Date Diagnosed Date Lumbar facet arthropathy 02/11/2025 Encounters Date Type Department Care Team Description 02/17/2025 Telephone Department of Neurosurgery [facility] Neurosurgery [address] [place] [id number] Yanely Ortiz, KD cancelling procedure 02/11/2025 10:30 AM EST Office Visit Department of Neurosurgery [facility] Neurosurgery [address] [place] [address] Noel Bah MD Lumbar facet arthropathy (Primary Dx) 02/11/2025 Telephone Department of Neurosurgery [facility] Neurosurgery [address] [place] [address] Yanely Ortiz RN eliquis clearance 01/13/2025 Telephone Department of Neurosurgery [facility] Neurosurgery [address] [place] [address] Shanelle Espinoza RN Triage from Last 3 Months Social History Tobacco Use Types Packs/Day Years Used Date Smoking Tobacco: Never Assessed Sex and Gender Information Value Date Recorded Sex Assigned at Male 01/13/2025 2:22 PM EDT Legal Sex Male 2:19 PM EDT Gender Identity Male 01/13/2025 2:22 PM EDT Sexual Orientation Not on file Last Filed Vital Signs Vital Sign Reading Time Taken Comments Blood Pressure 100/66 02/11/2025 9:58 AM EST Pulse 85 02/11/2025 9:58 AM EST Temperature - - Respiratory Rate - - Oxygen Saturation 98% 02/11/2025 9:58 AM EST Inhaled Oxygen Concentration - - Weight 131 kg (289 lb) 02/11/2025 9:58 AM EST Height 188 cm (6' 2 ) 02/11/2025 9:58 AM EST Body Mass Index 37.11 02/11/2025 9:58 AM EST Plan of Treatment Scheduled Procedures Name Priority Associated Diagnoses Date/Ti me MEDIAL BRANCH BLOCK Lumbar facet arthropathy Health Maintenance Due Date Last Done Comments Lipid Panel 1949 Depression Screening 1961 Hepatitis C Screening 1967 CT Colonography 1994 Colonoscopy 1994 Colorectal Cancer Screening 1994 FIT 1994 FOBT 1994 Multitarget Stool DNA (Cologuard) 1994 Sigmoidoscopy 1994 COVID-19 Vaccine ( season) 2024 07/05/2021, 01/24/2021, 07/13/2020, Additional history exists Influenza Vaccine (#1) 2024 , 02/07/2023, 01/09/2022, Additional history exists Blood Pressure 02/11/2026 02/11/2025 DTaP,Tdap,and Td Vaccines (2 - Td or Tdap) 04/15/2029 04/15/2019 Zoster Vaccine Completed 10/01/2020, 05/04, 01/26/2016 Pneumococcal Vaccine: 50+ Years Completed 01/09/2022, 01/02/2018 Meningococcal B Vaccines Aged Out No longer eligible based on patient's age to complete this topic Meningococcal Vaccines Aged Out No lo nger eligible based on patient's age to complete this topic Insurance [employer] MEDICARE ADVANTAGE [facility] MEDICARE ADVANTAGE [facility] MEDICARE ADVANTAGE Care Teams Nutritionalist Relationship Specialty Start Date End Date Jaquan Tristan NP [address] [place] [address] PCP - General Nurse Practitioner 01/13/25
--- OUTSIDE RECORDS SUMMARY | 2025-03-27 12:42 | XMS_ITS | Clinical Summary ---
Author Organization [facility] Prior to 08/30/[address] [place] [address] Care Team Providers Care Child Specialist Name Role Phone Jaquan Tristan Primary Care Provider [phone] Allergies Active Allergy Reactions Criticality Noted Date [...] this topic Medical Devices Implanted Type Area Plastics Tooling Engineer Device Identifier Shelf Expiration Date Model / Serial / Lot Samson Weber Vena Cava Filter- 4 Implanted:02/06 by Pilo Zaragoza DO (Quantity not on file) Explanted:(Hood tity not on file) / [id number] P / [id number] Cement Simplex P Radiopaque Full Dose Bone - [id number] - [id number] Implanted:Qty: 2 on 02/10/2014 by Ambrose Olson MD at [facility] Right: Knee [employer] 05/13/2016 6191-1-010 / / [id number] Component Triathlon 7 Posterior Stabilized Cemented Femoral - [id number] - [id number] Implanted:Qty: 1 on 02/10/2014 by Ambrose Olson MD at [facility] Right: Knee [employer] 07/11/2018 5515-F-702 / / [id number] Plug Artisan Medium 25mm Plug Bone Cement - [id number] - [id number] Implanted:Qty: 1 on 02/10/2014 by Ambrose Olson MD at [facility] Right: Knee [employer] 02/10/2015 [id number] / / [id number] Stem Triathlon 50mm 15mm Cemented Totl Stabilized Cocr - [id number] - [id number] Implanted:Qty: 1 on 02/10/2014 by Ambrose Olson MD at [facility] Right: Knee [employer] 08/10/2018 5560-[id number] / / [id number] Baseplate Triathlon 7 Beasley Totl Stabilized Cemented - [id number] - [id number] Implanted:Qty: 1 on 02/10/2014 by Ambrose Olson MD at [facility] Right: Knee [employer] 05/13/2018 5521-B-700 / / [id number] Component Patella 36mm Trini 10mm Thick Symmetric Triathlon - [id number] - [id number] Implanted:Qty: 1 on 02/10/2014 by Ambrose Olson MD [place] [facility] Right: Knee [employer] 11/10/2018 5550-L-360 / / [id number] Insert Tibial Articular Posterior Stabilized 11mm Thick Size - [id number] - [id number] Implanted:Qty: 1 on 02/10/2014 by Ambrose Olson MD at [facility] Right: Knee [employer] 02/10/2018 5532-P-711 / / [id number] Advance Directives For more information, please contact: [phone] Documents on File Type Date Recorded Patient Fulfillment Specialist Expl anation Advance Directive and Living Will [...] following way: discussion with patient. Care Teams Child Specialist Relationship Specialty Start Date End Date Jaquan Tristan: [phone] [address] [place] [address] PCP - General Family Medicine 01/24/22
--- OUTSIDE RECORDS SUMMARY | 2025-03-27 12:42 | XMS_ITS | Clinical Summary ---
Author Organization formerly [facility] Address [address] [place] [address] Phone Care Team Providers Care Archivist Political History Name Role Phone DamiánJaquan skelton Mata CUNHA Primary Care Provider Encounters Date Type Department Care Team Description 02/05/2025 Lab Requisition [facility] Main Lab [address] [place] [address] Lawanda Dalton MD Personal history [...] UPPER ENDOSCOPY-EGD; Surgeon: Jerry Sanderson MD; Location: [facility] END[facility]COPY; Service: Gastroenterology; Laterality: N/A; COLONOSCOPY 01/17/2017 N/A PROCEDURE:COLONOSCOPY;COMMENT :Procedure: COLONOSCOPY; Surgeon: Jerry Sanderson MD; Location: [facility] ENDOSCOPY; Service: Gastroenterology; Laterality: N/A; UPPER GASTROINTESTINAL ENDOSCOPY 11/10/2015 N/A PROCEDURE:UPPER GASTROINTESTINAL ENDOSCOPY;COMMENT:Procedure: UPPER ENDOSCOPY-EGD; Surgeon: Jerry Sanderson MD; Location: [facility] END[facility]COPY; Service: Gastroenterology; Laterality: N/A; TOTAL KNEE ARTHROPLASTY 02/10/2014 Right PROCEDURE:TOTAL KNEE ARTHROPLASTY;COMMENT:Procedur e: REPLACEMENT TOTAL KNEE; Surgeon: Ambrose Olson MD; Location: [facility] Service: Orthopedics; Laterality: Right; CATARACT EXTRACTION W/ INTRAOCULAR LENS IMPLANT Left PROCEDURE:CATARACT EXTRACTION W/ INTRAOCULAR LENS IMPLANT COLONOSCOPY 01/24/2022 N/A PROCEDURE:COLONOSCOPY;COMMENT :Procedure: COLONOSCOPY; Surgeon: Isra Alvarado MD; Location: [facility]; Service: Gastroenterology; Laterality: N/A; Medical History [...] in 5 fragments 02/06/2025 9:14 AM EST [facility] at 0914 EST Gross [...] EM 02/05/25 (Multiple) 02/06/2025 9:14 AM EST [facility] Disclaimer The technical components of [place] [address] CLIA # [id number] 02/06/2025 9:14 AM EST [facility] Tissue Ascending colon structure / Unknown 02/04/2025 02/05/2025 8:41 AM EST [facility] Denilson Dalton MD LAB PATHOLOGY ORDERABL ES Final Result [facility] [address] [place] [id number], from Last 3 Months Insurance [employer] MEDICARE ADVANTAGE Care Teams Archivist Political History Relationship Specialty Start Date End Date Jaquan Tristan NP [address] [facility] [place] PCP - General Family Medicine 01/24/22
--- OUTSIDE RECORDS SUMMARY | 2025-03-27 12:42 | XMS_ITS | Encounter Summary ---
Author Organization [facility] Address [address] [place] [address] Care Team Providers Care Drug Abuse Social Worker Name Role Phone Jaquan Tristan NP Primary Care Provider [phone] Encounter Details Date Type Department Care Team (Late st Contact Info) Description 12/16/2024 Scanned Document [facility] Pulmonary [place] [address] [place] [phone] Lyle Jerome MD [address] [place] [address] Social History Tobacco Use Types Packs/Day Years [...] on filedocumented in this encounter Care Teams Drug Abuse Social Worker Relationship Specialty Start Date End Date Jaquan Tristan NP [address] [place] [address] PCP - General Family Medicine 05/21/19 documented as of this encounter
--- OUTSIDE RECORDS SUMMARY | 2025-03-27 12:42 | XMS_ITS | Clinical Summary ---
Author Organization [facility] Address [address] [place] [address] Care Team Providers Care Studio Couch Frame Builder Name Role Phone Jaquan Tristan NP Primary Care Provider [phone] Allergies Active Allergy Reactions Criticality Noted Date [...] Department Care Team Description 02/04/2025 Documentation [facility] [address] [place] [address] [place] [address] Lawanda Dalton MD from Last [...] 10:09 AM EST) us Lawanda Dalton MD [facility] HX PATH PROCEDURES Final Res ult from Last 3 Months Insurance [facility] MEDICARE [employer] MEDICARE Care Teams Studio Couch Frame Builder Relationship Specialty Start Date End Date Jaquan Tristan, CHEST PAINTING LEADER [address] [place] [address] PCP - General Family Medicine 05/21/19
--- NOTE | 2025-03-27 12:54 | HO.SPINEOV ---
Vital Signs 03/27/25 13:03 Height 6 ft 2 in Weight 290 lb BMI 37.2 Intake Visit Reasons: low back pain Intake Note: Mr. Griffith is here today c/o low back pain. MRI done at [email or web address] Changer Fixer Required: No Allergies hydrocodone (From Vicodin) Allergy (Unknown, Verified 03/27/25 13:03) rash morphine Allergy (Unknown, Verified 03/27/25 13:03) rash Physical Exam Vital Signs: BMI result Body Mass Index 37.2 Assessment & Plan Assessment & Plan (1) Lumbar degenerative disc disease: Code(s): M51.369 - Other intervertebral disc degeneration, lumbar region without mention of lumbar back pain or lower extremity pain Category: Medical Plan Dear Mesha, Thank you for referring Mr Griffith to our office today. He is a very nice 74-year-old gentleman who has had back pain for many years. He was treated at [email or web address] for many years with injections including what sounds like radiofrequency ablation of his facets and over time the procedures gradually had decreasing efficacy. Despite that, he was doing okay until about maybe 5 months ago when he had a flare-up. The pain he localizes to the left paraspinal region located just at about the lumbosacral junction maybe slightly above. It is particularly bad if he is twisting or if he has been walking for any length of time. Even brief walks he will have to sit down 2 or 3 times if he is walking down a long cord or or in from a parking garage. When he sits down it improves. He can also make it better if he rotates his spine in his certain way. He will use [id number] medications if needed, but he is limited with anti-inflammatories secondary to Eliquis. He has done physical therapy. He routinely sees chiropractor as well. Recently had SI joint injections at [email or web address] which made no improvements whatsoever in his pain level. He comes in today with MRI done at [facility] showing degenerative disc disease with multilevel disc collapse and foraminal narrowing. PMH: History of AFib on Eliquis, history of hypertension, he has some level of cellulitis that developed just above his glutes from a small tear in the skin. He has been on preventative penicillin for years for this because it kept coming back. He does not recall mentioned of MRSA or any unusual infections. It has been stable and he has no active infections. History of bilateral hips and knees replaced, umbilical hernia, rotator cuff surgery, gout, sleep apnea, low vitamin-D, lipoma of the back, hematuria. Denies any history of heart attack, stroke, major pulmonary disease, major abdominal surgery, bleeding disorders blood clots diabetes, liver or kidney disease. Social hx: Smokes marijuana daily Medications: Please see the Let's Jock list included, but he takes allopurinol, Eliquis, Lipitor, Soma, Coreg, vitamin D3, DEXA lansoprazole, hydrochlorothiazide irbesartan, loperamide, magnesium, penicillin and MiraLax Allergies: Hydrocodone and morphine gives him a rash Physical exam: Awake alert oriented no acute distress able to stand and walk down the hallway with excellent stability, localizes pain and tenderness over the lumbosacral area, maybe slightly above on the left. Strength and reflexes normal. 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 He has no significant central canal stenosis. He has a large bone spur disc osteophyte complex at L2-3 on the left in the extraforaminal compartment. There is significant facet arthropathy at L4-5. There is varying degrees of foraminal stenosis throughout the lumbar spine. 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 I do not think L3-4 and L4-5 have completely fused at this point. Impression: 74-year-old gentleman with chronic low back pain, he has left-sided low back pain around the lumbosacral region which has been getting steadily worse over the last 5 months. He routinely had been seen at [facility] and did excellent with their injections, but recent interventions have not yielded any benefit. The last injection was an SI joint injection and it did nothing to help his pain. He has extensive degenerative changes and extensive amounts of what looks like auto fusion. I do not think L3 and L4 are auto fused but L5-S1 and L2-3 and L1-2 I believe are auto fused. In terms of the source of his back pain this is a little more complicated because of all of the overlapping arthritis and auto fusion. Because the SI joint injection failed so badly, I think another option could be the L4-5 facets where there significant arthropathy. This could be a referred pain down toward the lumbosacral region. He has had some kind of radiofrequency ablation in the past at [facility] which did work for him. They did not repeat that procedure again this time. They focused more in the SI joint. I am going to get a copy of the records from their office and see if I can find out where he had the most success with their injections and maybe that can help us localize it a little. I will review his imaging with Dr. Louie to see if he has any other thoughts. There is an endoscopic procedure that Dr. Louie can do to cut the median branch nerve near the facet. I will see if he thinks he is a candidate for this. The patient is adamant about not wanting to have the rest of his spine fused. I will call him once I have a chance to review everything with Dr. Louie. Thank you for allowing us to care for your patient. The total time spent with this visit with this patient was 45 minutes reviewing history, physical exam, lumbar CT and MRI imaging review, and implementation of treatment plan or further diagnostic testing Cecil Louie MD,PhD [facility] Coding Level of Care Code New Pt Level 4 (03021) Diagnoses Lumbar degenerative disc disease M51.369
[2025-03-27 13:03] VITALS: BMI 37.2
== END 2025-03-27 14:05 | disposition home or self-care (01) ==
LOC: HO.HNS 12:39
PROVIDERS: PCP Nurse Practitioner Family; Visit Provider Physician Assistant
DX: M51.369 Other intervertebral disc degeneration, lumbar region without mention of lumbar back pain or lower extremity pain (principal)
CPT/HCPCS: 99204

== ENCOUNTER → 2025-03-27 12:38 | Outpatient (BNVA) | payer MEDICARE, SELFPAY | PROVIDERS: PCP Nurse Practitioner Family; Visit Provider Physician Assistant | DX: M51.360 Other intervertebral disc degeneration, lumbar region with discogenic back pain only (principal); G89.29 Other chronic pain | CPT/HCPCS: 99202 ==